=== PATIENT | female | born 1930 | race Caucasian/White ===

== ENCOUNTER 2018-07-25 22:54 | Inpatient (IN) | payer MEDICARE, BC ==
[~2018-07-25] VITALS: Ht 147.3 cm; Wt 64.5 kg
[~2018-07-25 22:54] MED LIST: ALEN70TA5 PO; FENO145T37; FURO20TA3 PO; METH-493 PO; OLME40TA13 PO; VERA120C2 PO
[2018-07-25] MEDS ORDERED: NORepinephrine 8MG/250 ML (PMX 250 ML IV STA ×2 (23:21→23:30)
[2018-07-25] MEDS ORDERED: SODIUM CHLORIDE 0.9% 1L BAG IV* STA (23:21)
[2018-07-25] MEDS ORDERED: CEFEPIME 2GM/50 ML (PMX) 50 ML IVPB STA (23:21)
[2018-07-25] MEDS ORDERED: PROPOFOL 100 ML ONE (23:22)
[2018-07-25] MEDS: PROPOFOL 100 ML IV ONE (23:30)
[2018-07-25] MEDS ORDERED: VANCOMYCIN 1 GM (PMX) 250 ML IVPB ONE (23:30)
[2018-07-25] MEDS ORDERED: SUCCINYLCHOLINE CHLORIDE 100 MG/5 ML SYG IV ONE (23:30)
[2018-07-26] VITALS (82 sets, daily range): BP systolic 76–148; BP diastolic 43–113; PULSE 76–121; RESP 15–33; Ht 147.3 cm; Wt 64.5 kg
[2018-07-26] MEDS: PROPOFOL 100 ML IV ONE (00:06)
[2018-07-26] MEDS ORDERED: IPRATROPIUM (HFA) 12.9 GM INHALER INH PRN (01:30)
[2018-07-26] MEDS ORDERED: MIDAZOLAM 1 MG/ML 2 ML INJ IV ONE (01:30)
[2018-07-26] MEDS ORDERED: ONDANSETRON 4 MG INJ IV PRN (01:30)
[2018-07-26] MEDS ORDERED: ALBUTEROL HFA 8 GM INHALER INH PRN (01:30)
[2018-07-26] MEDS ORDERED: LORAZEPAM 4 MG/ML VIAL IV PRN (01:30)
--- NOTE | 2018-07-26 01:43 | HP ---
Date/Time of Note Date/Time of Note DATE: 07/26/18 TIME: 01:43 Assessment/Plan VTE Prophylaxis Pharmacological prophylaxis: heparin Lines/Catheters IV Catheter Type (from Nrs): Saline Lock Assessment/Plan Assessment/Plan 1. Hypercapnic and hypoxic respiratory failure: Status post intubation. Likely secondary to pneumonia and possibly COPD exacerbation as well given history -Continue vent support. Pulmonary to manage -IV antibiotic -IV fluid -Respiratory culture and blood culture -If no improvement, will consider chest CT 2. Positive troponin: Likely demand ischemia from above -will trend troponin -Give a dose of therapeutic Lovenox -2D echo cardiology consult 3. History of hypertension: BP within goal 4. Hyperthyroidism: Check TSH. Continue methimazole 5. Dyslipidemia: Continue fenofibrate Result Diagram: 07/25/18 2336 07/25/18 2336 Results 24hrs Laboratory Tests Test 07/25/18 23:21 07/25/18 23:22 07/25/18 23:36 07/26/18 00:35 Blood Gas Specimen Blood arterial Source Arterial Blood 07/26/2018 12:10:38 Date Drawn AM Arterial Blood pH 7.310 L (Temp corrected) Arterial Blood 50.8 H pCO2 (Temp correct) Arterial Blood pO2 198.5 H (Temp corrected) Arterial Blood 25.0 HCO3 Arterial Blood -1.7 Base Excess Arterial Blood 99.2 Oxygen Saturation Pio Test ACCEPTAB Arterial Blood Gas Right Radial Puncture Site Arterial 0.4 Blood Carboxyhemog lobin Arterial Blood 0.3 Methemoglobin Blood Gas A-a O2 463.7 H Differential Oxyhemoglobin 98.5 Percent Blood Gas 37.0 Temperature Blood Gas 16.0 Respiration Rate Blood Gas Actual 18 Respiration Rate Blood Gas Modality VENT - AC FiO2 100.0 Blood Gas Tidal 450.0 Volume Blood Gas Low PEEP 5.0 Setting Blood Gas 33.0 Inspiratory Pressure Blood Gas Notified KM Whom Blood Gas Notified 07/26/2018 12:20:53 Time AM POC Venous Lactate 4.6 *H White Blood Count 12.6 #H Red Blood Count 3.56 L Hemoglobin 11.2 L Hematocrit 32.9 L Mean Corpuscular 92.4 Volume Mean Corpuscular 31.5 Hemoglobin Mean Corpuscular 34.0 Hemoglobin Concent Red Cell 13.1 Distribution Width Platelet Count 394 Mean Platelet 9.8 # Volume Immature 0.900 H Granulocytes % Neutrophils % Segmented 56 Neutrophils % (Manual) Band Neutrophils % 25 H (Manual) Lymphocytes % Lymphocytes % 8 L (Manual) Monocytes % Monocytes % 11 (Manual) Eosinophils % Basophils % Nucleated Red 1 H Blood Cells % Immature 0.110 H Granulocytes # Neutrophils # Neutrophils # 7.4 (Manual) Band Neutrophils # 3.1 H Lymphocytes 1.0 (Manual) Lymphocytes # Monocytes # Monocytes # 1.3 H (Manual) Eosinophils # Basophils # Nucleated Red Blood Cells # Platelet Estimate NORMAL Polychromasia 2+ Anisocytosis 1+ Macrocytosis 1+ Erythrocyte 100 H Sedimentation Rate Prothrombin Time 14.8 Prothrombin Time 1.2 Ratio INR International 1.15 Normalized Ratio Activated 33.[address] Time Sodium Level 132 L Potassium Level 3.3 L Chloride Level 89 L Carbon Dioxide 27 Level Anion Gap 16 H Blood Urea 18 Nitrogen Creatinine 0.63 Est Glomerular Filtrat Rate mL/min Glucose Level 203 Calcium Level 9.5 Total Bilirubin 0.2 Direct Bilirubin 0.00 Indirect Bilirubin 0.2 Aspartate Amino 51 H Transf (AST/SGOT) Alanine 23 Aminotransferase ( ALT/SGPT) Alkaline 52 Phosphatase Troponin I 0.669 *H C-Reactive Protein 41.0 H Total Protein 7.5 Albumin 3.7 Globulin 3.80 H Albumin/Globulin 0.97 Ratio Lipase 20 L Urine Color ANASTASIA Urine Clarity CLOUDY A Urine pH 5.0 Urine Specific 1.014 [place] Urine Ketones NEGATIVE Urine Nitrite NEGATIVE Urine Bilirubin NEGATIVE Urine Urobilinogen 2+ H Urine Leukocyte NEGATIVE Esterase Urine Microscopic 1 RBC Urine Microscopic 8 H WBC Urine Squamous FEW Epithelial Cells Urine Amorphous MODERATE Crystals Urine Bacteria MANY A Urine Hyaline FEW A Casts Urine Mucus FEW A Urine Hemoglobin 1+ H Urine Glucose 1+ H Urine Total 1+ H Protein Test 07/26/18 01:16 POC Venous Lactate 2.4 *H HPI/ROS Admit Date/Time Admit Date/Time Hx of Present Illness This is an 87-year-old female with a history of COPD, hypertension, dyslipidemia, hyperthyroidism who was brought to the ER for shortness of breath. Patient is currently intubated and as such information is gathered from chart review and from the ER physician. Reportedly, daughter stated that the patient has been coughing up for the past 3 days. Prior to coming to the ER patient started experiencing shortness of breath and was breathing fast. In the ER she was hypoxic with O2 sat as low as 85 on 15 L nonrebreather mask. PH 7.31, PCO2 51, PO2 almost 200, bicarb 25. Currently patient is intubated. Chest x-ray shows possible bilateral pneumonia. First troponin also found to be elevated at 0.67. EKG without ST elevation or depression. PMH/Family/Social Past Medical History PMH/Family/Social Past Medical History Medical History: other (see hpi) Coded Allergies: No Known Drug Allergy (Verified Allergy, Unknown, 03/06/16) Past Surgical History Past Surgical Hx: other (see hpi) Family History Significant Family History: no pertinent family hx Social History Alcohol Use: other Smoking Status: Unknown if ever smoked Drug Use: other Medications Current Medications Norepinephrine 250 ml @ 7.5 mls/hr ONCE STAT IV Last administered on 07/25/18at 23:40; Admin Dose 7.5 MLS/HR; Start 07/25/18 at 23:30; Stop 07/27/18 at 08:49 Dextrose/Sodium Chloride 1,000 ml @ 100 mls/hr Q10H IV ; Start 07/26/18 at 01:20; Status UNV Ondansetron HCl (Zofran Inj) 4 mg Q6H PRN IV NAUSEA AND/OR VOMITING; Start 07/26/18 at 01:30; Status UNV Albuterol (Ventolin Hfa) 4 puff Q2H RESP THERAPY PRN INH SHORTNESS OF BREATH; Start 07/26/18 at 01:30; Status UNV Ipratropium [place]itter (Atrovent Hfa) 4 puff Q2H RESP THERAPY PRN INH SHORTNESS OF BREATH; Start 07/26/18 at 01:30; Status UNV Acetaminophen (Tylenol Liquid) 650 mg Q6H PRN PO PAIN LEVEL 1-3 OR FEVER; Start 07/26/18 at 01:30; Status UNV Lorazepam (Ativan) 1 mg Q2H PRN IV ANXIETY; Start 07/26/18 at 01:30; Status UNV Famotidine (Pepcid Iv) 20 mg Q12 IV ; Start 07/26/18 at 09:00; Status UNV Enoxaparin Sodium (Lovenox) 40 mg DAILY SC ; Start 07/26/18 at 09:00; Status UNV Propofol 100 ml @ 1.937 mls/ hr PER PROTOCOL IV ; Start 1/7/19 at 01:30; Status UNV Midazolam HCl (Versed) Loading dose - give s... ONCE ONCE IV ; Start 07/26/18 at 01:30; Stop 07/26/18 at 01:31; Status UNV Norepinephrine 250 ml @ 1.875 mls/ hr PER PROTOCOL IV ; Start 07/26/18 at 01:30; Status UNV Cefepime HCl 50 ml @ 100 mls/hr Q12 IVPB ; Start 07/26/18 at 09:00; Status UNV Azithromycin 250 ml @ 250 mls/hr DAILY IVPB ; Start 07/26/18 at 09:00; Status UNV Coded Allergies: No Known Allergy (Verified , 12/16/12) Social History Smoking Status: Unknown if ever smoked Exam/Review of Systems Vital Signs Vitals Vital Signs Date Temp Pulse Resp B/P (MAP) Pulse Ox O2 O2 Flow FiO2 Time Delivery Rate 07/26/18 91 17 103/82 97 Mechanical 00:45 (89) Ventilator 07/26/18 70 00:24 07/25/18 97.9 15.0 23:28 Exam Constitutional: other (Intubated/sedated) Head: normocephalic, atraumatic Respiratory: other (Decreased breath sounds at the base bilaterally) Cardiovascular: regular rate and rhythm, nl pulses Gastrointestinal: soft Extremities: normal pulses PRADEEP KRAMER MD Jul 26, 2018 01:43
--- NOTE | 2018-07-26 01:49 | ERD ---
ER Documentation Chief Complaint Chief Complaint SOB; ALOC; SATTING 58% HPI This is a very pleasant 87-year-old female who comes in brought in by family for shortness of breath and altered mental status. She is found to be satting 58% in triage. She is also not answering questions. She was brought back immediately to room. The diagnosis and decision of respiratory failure and intubation were made immediately. Patient was prepped for intubation. Reviewing EMR patient has history of CHF and COPD. History is obviously limited from the patient given her current status. ROS All systems reviewed and are negative except as per history of present illness. Medications Home Meds Active Scripts Furosemide* (Furosemide*) 20 Mg Tablet, 20 MG PO DAILY for 14 Days, TAB Prov:GITA VALENCIA MD 06/22/15 Reported Medications Methimazole* (Methimazole*) 5 Mg Tablet, 5 MG PO BID, TAB 06/19/15 Verapamil Hcl* (Verapamil ER*) 120 Mg Cap24h.pel, 120 MG PO DAILY, CAP 06/19/15 Olmesartan Medoxomil (Benicar) 40 Mg Tablet, 40 MG PO DAILY, TAB 06/19/15 Alendronate Sodium* (Fosamax*) 70 Mg Tablet, 70 MG PO Q WEEKLY THURSDAY AM 12/17/12 Fenofibrate Nanocrystallized* (Fenofibrate*) 145 Mg Tablet, DAILY 12/16/12 Allergies Allergies: Coded Allergies: No Known Allergy (Verified , 12/16/12) PMhx/Soc History of Surgery: Yes (see EMR) Anesthesia Reaction: No Hx Neurological Disorder: No Hx Respiratory Disorders: No Hx Cardiac Disorders: Yes (HTN, HYPERLIPIDEMIA/ Enlarged heart- w/ home O2) Hx Psychiatric Problems: No Hx Miscellaneous Medical Probl: Yes (HTN, dyslipidemia, OP, hypothyroidism) Hx Alcohol Use: No Hx Substance Use: No Hx Tobacco Use: No Smoking Status: Unknown if ever smoked Physical Exam Vitals Vital Signs Date Temp Pulse Resp B/P (MAP) Pulse Ox O2 O2 Flow FiO2 Time Delivery Rate 07/26/18 91 17 103/82 97 Mechanical 00:45 (89) Ventilator 07/26/18 91 16 132/56 98 Mechanical 00:30 (81) Ventilator 07/26/18 90 20 100 70 00:24 07/26/18 97 16 147/63 100 Mechanical 00:00 (91) Ventilator 07/26/18 97 16 147/63 100 00:00 (91) 07/25/18 83 20 125/90 100 Mechanical 23:45 (102) Ventilator 07/25/18 97.9 102 19 127/66 85 Non 15.0 23:28 (86) Rebreather 07/25/18 Rebreather 23:28 07/25/18 97 16 100 100 23:07 07/25/18 122/57 58 22:55 (78) Physical Exam Const: No acute distress Head: Atraumatic Eyes: Normal Conjunctiva ENT: Normal External Ears, Nose and Mouth. Neck: Full range of motion. No meningismus. Resp: Clear to auscultation bilaterally Cardio: Regular rate and rhythm, no murmurs Abd: Soft, non tender, non distended. Normal bowel sounds Skin: No petechiae or rashes Back: No midline or flank tenderness Ext: No cyanosis, or edema Neur: Awake and alert Psych: Normal Mood and Affect Result Diagram: 07/25/18 2336 07/25/18 2336 Results 24 hrs Laboratory Tests Test 07/25/18 23:21 07/25/18 23:22 07/25/18 23:36 07/26/18 00:35 Blood Gas Blood arterial Specimen Source Arterial Blood 07/26/2018 12:10: Date Drawn 38 AM Arterial Blood 7.310 pH (Temp corrected) Arterial Blood 50.8 mmhg pCO2 (Temp correct) Arterial Blood 198.5 mmHG pO2 (Temp corrected) Arterial Blood 25.0 mmol/L HCO3 Arterial Blood -1.7 mmol/L Base Excess Arterial Blood 99.2 mmHG Oxygen Saturatio n Pio Test ACCEPTAB Arterial Blood Right Radial Gas Puncture Site Arterial 0.4 % Blood Carboxyhem oglobin Arterial Blood 0.3 % Methemoglobin Blood Gas A-a O2 463.7 mmHg Differential Oxyhemoglobin 98.5 % Percent Blood Gas 37.0 C Temperature Blood Gas 16.0 Respiration Rate Blood Gas Actual 18 Respiration Rate Blood Gas VENT - AC Modality FiO2 100.0 % Blood Gas Tidal 450.0 mL Volume Blood Gas Low 5.0 cmH2O PEEP Setting Blood Gas 33.0 Inspiratory Pressure Blood Gas KM Notified Whom Blood Gas 07/26/2018 12:20: Notified Time 53 AM POC Venous 4.6 mmol/L Lactate White Blood 12.6 10^3/ul Count Red Blood Count 3.56 10^6/ul Hemoglobin 11.2 g/dl Hematocrit 32.9 % Mean Corpuscular 92.4 fl Volume Mean Corpuscular 31.5 pg Hemoglobin Mean Corpuscular 34.0 g/dl Hemoglobin Georgette nt Red Cell 13.1 % Distribution Width Platelet Count 394 10^3/UL Mean Platelet 9.8 fl Volume Immature 0.900 % Granulocytes % Neutrophils % % Segmented 56 % Neutrophils % (Manual) Band Neutrophils 25 % % (Manual) Lymphocytes % % Lymphocytes % 8 % (Manual) Monocytes % % Monocytes % 11 % (Manual) Eosinophils % % Basophils % % Nucleated Red 1 % Blood Cells % Immature 0.110 10^3/ul Granulocytes # Neutrophils # 10^3/ul Neutrophils # 7.4 10^3/ul (Manual) Band Neutrophils 3.1 10^3/ul # Lymphocytes 1.0 10^3/ul (Manual) Lymphocytes # 10^3/ul Monocytes # 10^3/ul Monocytes # 1.3 10^3/ul (Manual) Eosinophils # 10^3/ul Basophils # 10^3/ul Nucleated Red 10^3/ul Blood Cells # Platelet NORMAL Estimate Polychromasia 2+ Anisocytosis 1+ Macrocytosis 1+ Erythrocyte 100 mm/Hr Sedimentation Rate Prothrombin Time 14.8 Sec Prothrombin Time 1.2 Ratio INR 1.15 International Normalized Ratio Activated 33.2 Sec Partial Thrombop last Time Sodium Level 132 mmol/L Potassium Level 3.3 mmol/L Chloride Level 89 mmol/L Carbon Dioxide 27 mmol/L Level Anion Gap 16 Blood Urea 18 mg/dl Nitrogen Creatinine 0.63 mg/dl Est Glomerular mL/min Filtrat Rate mL/min Glucose Level 203 mg/dl Calcium Level 9.5 mg/dl Total Bilirubin 0.2 mg/dl Direct Bilirubin 0.00 mg/dl Indirect 0.2 mg/dl Bilirubin Aspartate Amino 51 IU/L Transf (AST/SGOT ) Alanine 23 IU/L Aminotransferase (ALT/SGPT) Alkaline 52 IU/L Phosphatase Troponin I 0.669 ng/ml C-Reactive 41.0 mg/dl Protein Total Protein 7.5 g/dl Albumin 3.7 g/dl Globulin 3.80 g/dl Albumin/Globulin 0.97 Ratio Lipase 20 U/L Urine Color ANASTASIA Urine Clarity CLOUDY Urine pH 5.0 Urine Specific 1.014 [place] Urine Ketones NEGATIVE mg/dL Urine Nitrite NEGATIVE mg/dL Urine Bilirubin NEGATIVE mg/dL Urine 2+ mg/dL Urobilinogen Urine Leukocyte NEGATIVE Honey/ul Esterase Urine 1 /HPF Microscopic RBC Urine 8 /HPF Microscopic WBC Urine Squamous FEW /HPF Epithelial Cells Urine Amorphous MODERATE /HPF Crystals Urine Bacteria MANY /HPF Urine Hyaline FEW /HPF Casts Urine Mucus FEW /HPF Urine Hemoglobin 1+ mg/dL Urine Glucose 1+ mg/dL Urine Total 1+ mg/dl Protein Test 07/26/18 01:16 POC Venous 2.4 mmol/L Lactate Current Medications Medications Dose Sig/Jose Start Time Status Last (Trade) Ordered Route PRN Stop Time Admin Dose Reason Admin Sodium 1,940 ml BOLUS OVER 2 07/25/18 DC 07/26/18 Chloride HOURS STAT 23:21 07/25/18 00:01 (NS) IV* 23:23 250 ml @ ONCE STAT 07/25/18 DC Norepinephrin 7.5 mls/hr IV 23:21 07/25/18 e 23:30 Cefepime HCl 50 ml @ ONCE STAT 07/25/18 DC 07/26/18 100 mls/hr IVPB 23:21 07/25/18 00:01 23:50 Vancomycin 250 ml @ ONCE ONCE 07/25/18 DC 07/26/18 HCl 125 mls/hr IVPB 23:30 07/26/18 00:53 01:29 100 mg ONCE ONCE 07/25/18 DC 07/25/18 Succinylcholi IV 23:30 07/25/18 23:06 ne Chloride 23:31 (Anectine Syringe) Propofol 100 ml @ 0 TITRATE 07/25/18 DC 07/25/18 mls/hr ONCE IV 23:30 07/25/18 23:30 23:31 Propofol 100 ml @ ud STK-MED 07/25/18 DC ONCE .ROUTE 23:22 07/25/18 23:23 250 ml @ ONCE STAT 07/25/18 07/25/18 Norepinephrin 7.5 mls/hr IV 23:30 07/27/18 23:40 e 08:49 1,000 ml @ Q10H IV 07/26/18 UNV Dextrose/Sodi 100 mls/hr 01:20 um Chloride Ondansetron 4 mg Q6H PRN 07/26/18 UNV HCl (Zofran IV NAUSEA 01:30 Inj) AND/OR VOMITING Albuterol 4 puff Q2H RESP 07/26/18 UNV (Ventolin THERAPY PRN 01:30 Hfa) INH SHORTNESS OF BREATH Ipratropium 4 puff Q2H RESP 07/26/18 UNV Rebuck THERAPY PRN 01:30 (Atrovent INH Hfa) SHORTNESS OF BREATH 650 mg Q6H PRN 07/26/18 UNV Acetaminophen PO PAIN 01:30 (Tylenol LEVEL 1-3 OR Liquid) FEVER Lorazepam 1 mg Q2H PRN 07/26/18 UNV (Ativan) IV ANXIETY 01:30 Famotidine 20 mg Q12 IV 07/26/18 UNV (Pepcid Iv) 09:00 Enoxaparin 40 mg DAILY SC 07/26/18 UNV Sodium 09:00 (Lovenox) Propofol 100 ml @ PER 07/26/18 UNV 1.937 mls/ PROTOCOL IV 01:30 hr Midazolam Loading ONCE ONCE 07/26/18 UNV HCl dose - give IV 01:30 07/26/18 (Versed) s... 01:31 250 ml @ PER 07/26/18 UNV Norepinephrin 1.875 mls/ PROTOCOL IV 01:30 e hr Cefepime HCl 50 ml @ Q12 IVPB 07/26/18 UNV 100 mls/hr 09:00 Azithromycin 250 ml @ DAILY IVPB 07/26/18 UNV 250 mls/hr 09:00 Procedures/MDM EKG: Rate/Rhythm: [Normal Sinus Rhythm] QRS, ST, T-waves: [No changes consistent w/ acute ischemia] Impression: [No evidence of ischemia or arrhythmia] Chest X-ray 1V Interpreted by me: Soft Tissue: No acute abnormalities Bones: No acute abnormalities Mediastinum/Cardiac Silhouette/Lungs: ET tube in good position Sepsis initially recognized upon patient arrival Patient's infectious symptoms have not stabilized and the patient is at risk of rapid decompensation. The patient will be admitted for careful hydration, antibiotic therapy, and infectious source control. Severe Sepsis Assessment: Infectious Source: Unknown End organ damage indicated by: [Lactate > 2.0 mmol/L Hypotension( SBP < 90 or >40 mmHG drop or MAP < 65) Acute Resp Failure (sat < 92% w/o oxygen) ] Severe Sepsis Managment: Blood Cultures X 2 before broad spectrum antibiotics initiated within 3 hours of recognition. 30 ml/kg NS bolus Completed Initial Lactate: 4.2 Repeat Lactate 2.4 Critical Care: Time: 45 minutes, independent of any separately billable procedural time Treatments/Evaluations: Emergent fluid management, while maintaining close respiratory support. Immediate broad spectrum antibiotic therapy. Simultaneous assessment for possible sources in order to direct therapy. Consideration for invasive and chemical support to prevent respiratory or cardiac collapse. Septic Shock Assessment (1 hour post 30 ml/kg fluid bolus): Hypotension (SBP < 90 or 40 mmHg drop, MAP < 65): [No] Lactic acid > 4.0 [No] Perfusion Reassessment for Septic Shock: Temp 98.6, pulse 92, blood pressure 104/86, respiratory rate is 16, pulse oximetry 100% Heart Exam: [Tachycardic] Lung Exam: [No Crackles] Capillary Refill: [Delayed] Peripheral Pulses: [Radially present] Skin: [Mottled, pale] Hypotensive Treatment (not required for isolated lactic acid elevation): Comfort Care: No Central LIne: Left subclavian Vasopressor started: [norepinephrine] Accepting Care Team: Current data and ongoing care discussed. Time: 12:47 AM Primary Provider: Hospitalist Consulting: Deferred to inpatient team Outstanding Data: none Central Line Placement by me: Patient consented, sterilely draped, full prep, gown, glove, mask, time out performed. Anesthesia: 1% lidocaine locally Location: Left subclavian Device: Multiple lumen Technique: Seldinger technique. Secured with suture. Results: Venous return from all ports with easy saline flush. No complications. [XOXOXO]Guide wire retrieved and disposed of. [Chest X-ray 1V Interpreted by me: Central line in SVC, Normal soft tissue, No evidence of pneumothorax.] Endotracheal Intubation by me: Pre assessment performed. See preceding note for details. Pre-oxygenation performed with 100% oxygen RSI: Performed w/o complication or hypoxic events. Medications as ordered. Blade: [Mac 4] ET Tube: 7.0 cm Depth: 22 cm at the lip Intubation confirmed by colorimetric CO2, equal breath sounds, quiet over the stomach. Chest X-ray 1V Interpreted by me: 1 cm above the mekhi ET tube. Normal soft tissue, No pneumothorax. Departure Diagnosis: Primary Impression: Respiratory failure Chronicity: acute Respiratory failure complication: unspecified whether with hypoxia or hypercapnia Qualified Codes: J96.00 - Acute respiratory failure, unspecified whether with hypoxia or hypercapnia Additional Impression: Sepsis Sepsis type: sepsis due to unspecified organism Qualified Codes: A41.9 - Sepsis, unspecified organism Condition: Critical PRADEEP NARVAEZ Jul 26, 2018 01:49
[2018-07-26] MEDS: PROPOFOL 100 ML IV SCH ×2 (04:43→10:34)
[2018-07-26] MEDS: DEXTROSE 5%-0.45% NACL 1,000 ML IV SCH ×2 (05:41→18:25)
[2018-07-26] MEDS: NORepinephrine 8MG/250 ML (PMX 250 ML IV SCH ×2 (07:09→19:41)
[2018-07-26] MEDS: METHIMAZOLE 5 MG TAB PO SCH ×2 (08:26→21:16)
[2018-07-26] MEDS: CEFEPIME 1GM/50 ML (PMX) 50 ML IVPB SCH ×2 (08:26→21:16)
[2018-07-26] MEDS: ENOXAPARIN 40 MG/0.4 ML SYG SC SCH (08:27)
[2018-07-26] MEDS: FENOFIBRATE 145 MG TAB PO SCH (08:28)
[2018-07-26] MEDS ORDERED: FAMOTIDINE 20 MG INJ IV SCH (09:00)
[2018-07-26] MEDS ORDERED: POTASSIUM CHLORIDE 20 MEQ POWDER FOR ORAL SOLN NGT SCH (10:00)
[2018-07-26] MEDS: AZITHROMYCIN 500MG/NS (PMX) 250 ML IVPB SCH (10:03)
--- NOTE | 2018-07-26 11:24 | CONS ---
DATE OF ADMISSION: 07/26/2018 DATE OF CONSULTATION: 07/26/2018 TYPE OF CONSULTATION: Pulmonary. REASON FOR CONSULTATION: Ventilator management. Thank you, Dr. Vargas, for this consultation. HISTORY OF PRESENT ILLNESS: This is an 87-year-old lady brought in by family yesterday for altered m ental status, respiratory distress, found to be significantly hypoxemic requiring emergent intubation and mechanical ventilation. Few further details are available. The patient, per chart, has a histo ry of CHF and COPD, possible restrictive lung disease given radiographic findings. PAST MEDICAL HISTORY: Hypertension, hyperlipidemia, CHF, hypothyroidism. MEDICATIONS: Per chart. ALLERGIES: NONE. SOCIAL HISTORY: Nonsmoker, no alcohol, no history of drug use. FAMILY HISTORY: Noncontributory. SYSTEMS REVIEW: A 12-point review of systems was negative other than that mentioned above. PHYSICAL EXAMINATION: GENERAL: Chronically ill appearing lady, orally intubated on mechanical ventilation, appears comfort able at rest, no acute distress. VITAL SIGNS: Currently afebrile, pulse is 110, blood pressure 105/55, O2 saturation 99%, FIO2 of 60% , orally intubated. NECK: Supple. No JVD or lymphadenopathy. CARDIAC: S1, S2, no added sounds or murmurs. CHEST: Diminished air entry bilaterally. ABDOMEN: Soft, nontender. No guarding or rebound. EXTREMITIES: No cyanosis, clubbing, edema. NEUROLOGIC: Unable to assess. LABORATORY DATA: White count 10.2, hemoglobin 10.6, platelets of 364. BUN 20, creatinine 0.59. Tro ponin elevated at 0.57. Initial lactic acid 2.4, now 1.8. DIAGNOSTIC DATA: Chest x-ray demonstrates bilateral infiltrates, possible underlying pulmonary edema . EKG: No acute ischemic changes. IMPRESSION AND PLAN: 1. Acute hypoxemic respiratory failure, likely secondary to community-acquired pneumonia. 2. Probable underlying restrictive lung disease. 3. Elevated troponin, likely type 2 non-ST elevation OR. The patient to continue with: 1. Fluid resuscitation. 2. Broad-spectrum antibiotics. 3. Mechanical ventilation. 4. Sedation and pressors as needed. 5. Start tube feeding. 6. Deep vein thrombosis and gastrointestinal prophylaxis. Dictated By: CYNDEE DUPREE/YUSUF Conf#: [id number] DID#: [id number] CC: PRADEEP VARGAS MD;*EndCC*
[2018-07-26] MEDS ORDERED: ASPIRIN 325 MG TAB PO ONE (12:00)
[2018-07-26] MEDS ORDERED: POTASSIUM CHLORIDE 50 ML IVPB SCH (12:00)
[2018-07-26] MEDS ORDERED: LORAZEPAM 1 MG TAB GTB PRN (12:04)
[2018-07-26] MEDS: ACETAMINOPHEN 650MG/20.3ML CUP PO PRN (12:26)
[2018-07-26] MEDS ORDERED: MAGNESIUM SULFATE 2 GM/50 ML 50 ML IVPB ONE (13:00)
--- NOTE | 2018-07-26 13:42 | CONS ---
DATE OF ADMISSION: 07/26/2018 DATE OF CONSULTATION: 07/26/2018 TYPE OF CONSULTATION: Cardiology. REASON FOR CONSULTATION: Tachyarrhythmia. REQUESTING PHYSICIAN: Yessy Santo MD, from the hospitalist service. HISTORY OF PRESENT ILLNESS: Ms. Brown is an 87-year-old female with a history of hyperthyroid, hypertension, dyslipidemia, cardiomegaly, possible home O2 and osteoporosis, who presented from home with shortness of breath, altered mental state. Upon arrival, temperature was 97.9, blood pressure 122/57, pulse 97, respiratory rate 16, satting 58%. The patient's labs were notable for a white blood cell count of 12.6, hemoglobin 11.2, platelet count 394, ESR of 100, sodium 132, potassium 3.3, creatinine 0.6, BUN 18, lactate of 4.6. Troponin is positive at 0.669. INR of 1.1. UA is borderline positive. The patient underwent a chest x-ray revealing possible bilateral pneumonia. The patient's electrocardiogram revealed initial rhythm concerning for possible accelerated junctional rhythm, but probably more consistent with sinus tachycardia, rate of 106 with normal axis and nonspecific ST and T-wave abnormalities. The patient required intubation and initiation of pressor support and has been admitted to the ICU and since admit to the ICU, the patient has remained mildly tachycardic in the low 100s with possible episodes of accelerated junctional rhythm versus ongoing sinus tachycardia and recurrent bouts of mild wide complex beats concerning for possible PVCs and/or fusion beats. The patient at this time remains intubated, not able to respond to questions pertaining to chest pain, shortness of breath. PAST MEDICAL HISTORY: As above in HPI. MEDICATIONS CURRENTLY IN HOSPITAL: 1. Pepcid 20 mg IV q.12. 2. Lovenox 40 mg subQ daily. 3. Cefepime. 4. Azithromycin. 5. TriCor. 6. Tapazole 5 mg b.i.d. 7. Zofran. 8. Ventolin. 9. Atrovent. 10. Tylenol. 11. Propofol. 12. Levophed pressor support. ALLERGIES: NO KNOWN DRUG ALLERGIES. SOCIAL HISTORY: No current tobacco, EtOH or illicit drug use. FAMILY HISTORY: No history of sudden cardiac or early CAD. REVIEW OF SYSTEMS: As above in HPI. CONSTITUTIONAL: No fevers, chills. PULMONARY: Respiratory failure, status post intubation. GASTROINTESTINAL: Dysphagia. GENITOURINARY: No hematuria. MUSCULOSKELETAL: Degenerative joint disease. PSYCHIATRIC: No documented psych history. NEUROLOGIC: No documented history of CVA. ENDOCRINE: Hyperthyroidism. PHYSICAL EXAMINATION: VITAL SIGNS: Temperature of 97.9, blood pressure most recently 78/53, pulse 114, respiratory rate 33. GENERAL: The patient is intubated and sedated. NECK: JVP is approximately 9 to 10 cm water. CHEST: Upper airway transmitted rhonchorous sounds. HEART: Tachycardic, regular rhythm, normal S1, S2, I/ systolic murmur, nondisplaced PMI. ABDOMEN: Positive bowel sounds, soft. EXTREMITIES: Trace edema, 1+ pulses bilateral posterior tibial. LABORATORIES: As above in HPI. Most recently from today, sodium 136, potassium 3.1, creatinine 0.59, BUN of 20. Troponin is minimally positive at 0.578. TSH of 0.666. White blood cell count 10.2, hemoglobin 10.6, platelet count of 364. IMAGING STUDIES: Chest x-ray from 07/26/2018 revealing worsening bilateral perihilar and lower lobe infiltrate, new patchy right upper lobe infiltrates. IMPRESSION: 1. Tachyarrhythmia concerning for possible accelerated junctional rhythm, likely consistent with ongoing sinus tachycardia with intermittently aberrantly conducted beats possibly rate related to bundle. 2. Bundle branch block, intermittent, in correction of rate related. I doubt ischemic etiology of the bundle. 3. Positive troponin in the setting of sepsis and hypotension. 4. Hypotension, on pressor support. 5. Anemia. 6. Respiratory failure, status post intubation. 7. Abnormal echocardiogram, assess for acute coronary syndrome with altered mental state. RECOMMENDATIONS: 1. At this time, we would maintain the patient in ICU on close monitoring. 2. Continue the patient's pressor support, Levophed at this time following rhythm and rate control closely. 3. The patient is status post TSH within normal limits. Check free T4 to further assess the patient's current thyroid state on Tapazole. 4. Continue the patient's Tapazole at this time. 5. Continue the patient's broad spectrum antibiotics and follow up all culture data. 6. We will place the patient on aspirin at this time in the setting of minimally positive troponins and continue the patient's low dose Lovenox. 7. We would keep the patient's potassium and magnesium and we will replete greater than 4 and 2 respectively and therefore we will give patient potassium at this time and check the patient's magnesium. 8. Wean the patient's vent as tolerated. Thank you for allowing me to take part in the care of this patient. I will continue to follow her very closely with you with further recommendations will be made as the patient progresses through her inpatient hospital clinical course. Dictated By: YESSY RICKS/YUSUF Conf#: [id number] DID#: [id number] CC: YESSY SANTO MD; CYNDEE SAAVEDRA MD; PRADEEP KRAMER MD;*EndCC* MTDD
--- NOTE | 2018-07-26 15:56 | PN ---
Date/Time of Note Date/Time of Note DATE: 07/26/18 TIME: 15:50 Assessment/Plan VTE Prophylaxis Risk score (from Ns)>0 risk: 5 SCD applied (from Ns): Yes Pharmacological prophylaxis: LMWH Lines/Catheters IV [facility]from [facility] Saline Lock Urinary Cath still in place: Yes Reason Cath still needed: other (indicate) (intubated) Assessment/Plan Assessment/Plan # Hypercapnic and hypoxic respiratory failure: - Status post intubation. Likely secondary to pneumonia and possibly COPD exacerbation as well given history - Continue vent support. Pulmonary following - IV antibiotics - Respiratory culture and blood culture - If no improvement, will consider chest CT # Positive troponin: Likely demand ischemia from above - trops slowly trending down - Dr Perrin following - Only prophylactic dose lovenox for now. - 2D echo # History of hypertension: Currently requiring pressors # Hyperthyroidism: TSH currently at safe level. Continue methimazole # Dyslipidemia: Continue fenofibrate Code status: Do not resuscitate, do not re-intubate. Result Diagram: 07/26/18 0607/26/18 06 Subjective 24 Hr Interval Summary Free Text/Dictation No acute overnight events. Patient's daughter Jes is a [employer]. Per family discussion, the patient has been made DNR. In the event of extubation she should not be re-intubated. Slowly weaning down on pressors and FiO2 today. Exam/Review of Systems Vital Signs Vitals Vital Signs Date Temp Pulse Resp B/P (MAP) Pulse Ox O2 O2 Flow FiO2 Time Delivery Rate 07/26/18 88 25 107/51 98 13:45 (69) 07/26/18 [place] 13:30 l Ventilato r 07/26/18 100.1 13:15 07/26/18 60 08:00 07/26/18 16.0 04:55 Intake and Output 07/25/18 07/25/18 07/26/18 1414:59 22:59 06:59 IntakeIntake Total 2172 ml OutputOutput Total 20 ml BalanceBalance 2152 ml Exam Gen: Elderly woman intubated, sedated. HEENT: Moist mucous membranes, ET tube in place. Neck: No lymphadenopathy Chest: L chest subclavian line in place Card: Tachy, regular rhythm, no murmurs Pulm: Mechanical breath sounds with crackles throughout. Abd: Soft, nondistended. Ext: No cyanosis/clubbing/edema. Medications Medications Current Medications Norepinephrine 250 ml @ 7.5 mls/hr ONCE STAT IV Last administered on 07/25/18 23:40; Admin Dose 7.5 MLS/HR; Start 07/25/18 at 23:30; Stop 07/27/18 at 08:49 Dextrose/Sodium Chloride 1,000 ml @ 100 mls/hr Q10H IV Last administered on 07/26/18 05:41; Admin Dose 100 MLS/HR; Start 07/26/18 at 01:20 Ondansetron HCl (Zofran Inj) 4 mg Q6H PRN IV NAUSEA AND/OR VOMITING; Start 07/26/18 at 01:30 Albuterol (Ventolin Hfa) 4 puff Q2H RESP THERAPY PRN INH SHORTNESS OF BREATH; Start 07/26/18 at 01:30 Ipratropium [place] (Atrovent Hfa) 4 puff Q2H RESP THERAPY PRN INH SHORTNESS OF BREATH; Start 07/26/18 at 01:30 Acetaminophen (Tylenol Liquid) 650 mg Q6H PRN PO PAIN LEVEL 1-3 OR FEVER Last administered on 07/26/18 12:26; Admin Dose 650 MG; Start 07/26/18 at 01:30 Enoxaparin Sodium (Lovenox) 40 mg DAILY SC Last administered on 07/26/18 08:27; Admin Dose 40 MG; Start 07/26/18 at 09:00 Propofol 100 ml @ 1.937 mls/ hr PER PROTOCOL IV Last administered on 07/26/18 10:34; Admin Dose 5.81 MLS/HR; Start 07/26/18 at 01:30 Norepinephrine 250 ml @ 1.875 mls/ hr PER PROTOCOL IV Last administered on 07/26/18 07:09; Admin Dose 31.875 MLS/HR; Start 07/26/18 at 01:30 Cefepime HCl 50 ml @ 100 mls/hr Q12 IVPB Last administered on 07/26/18 08:26; Admin Dose 100 MLS/HR; Start 07/26/18 at 09:00 Azithromycin 250 ml @ 250 mls/hr DAILY IVPB Last administered on 07/26/18 10:03; Admin Dose 250 MLS/HR; Start 07/26/18 at 09:00 Fenofibrate (Tricor) 145 mg DAILY PO Last administered on 07/26/18at 08:28; Admin Dose 145 MG; Start 07/26/18 at 09:00 Methimazole (Tapazole) 5 mg BID PO Last administered on 07/26/18at 08:26; Admin Dose 5 MG; Start 07/26/18 at 09:00 Famotidine (Pepcid) 20 mg DAILY GTB ; Start 07/27/18 at 09:00 Lorazepam (Ativan) 1 mg Q2H PRN GTB ANXIETY; Start 07/26/18 at 12:04 YESSY LANDEROS MD Jul 26, 2018 15:56
--- NOTE | 2018-07-26 16:58 | RADRPT ---
Echocardiogram Report Patient Name: KELSIE GALDAMEZ Gender: Female Date: 1930 Study Date: 26-Jul-2018 Inspector Handbag Frames: [facility] Location: 114 Ref. Physician: PRADEEP KRAMER Quality: Technically Difficult Study Procedures: Transthoracic echocardiogram with complete 2D, M-Mode, and doppler examination. Indications: Positive Troponins. 2D/M Mode Doppler Measurement Value Normal Ranges Measurement Value Normal Ranges LVIDd 2D 4.4 3.5 - 5.6 cm AV Mean Jairo 1.4 m/sec LVIDs 2D 2.3 2.1 - 4.1 cm AV Mean PG 10.0 mmHg LVPWd 2D 1.0 0.6 - 1.1 cm AV Peak Jairo 2.0 m/sec IVSd 2D 1.0 0.6 - 1.1 cm AV Peak PG 17.0 mmHg AoR Diam 2D 2.6 2.0 - 3.7 cm AV VTI 32.6 cm LA/Ao 2D 2 0 - 1 LVOT Peak Jairo 1.5 m/sec LA Dimen 2D 3.9 2.3 - 4.0 cm LVOT Peak PG 9.0 mmHg MV E Peak Jairo 0.6 m/sec MV A Peak Jairo 0.9 m/sec MV E/A 0.7 MV Decel Time 264 msec Lat E` Jairo 0.1 m/sec Lateral E/E` 9.1 MV E/A 0.7 TR Peak Jairo 4.4 m/sec TR Peak PG 79.0 mmHg RVSP 94.0 mmHg RA Pressure 15.0 Findings Left Ventricle: Normal left ventricular systolic function. Normal left ventricular cavity size. Mild concentric left ventricular hypertrophy. Ejection fraction is visually estimated at 65 %. Tissue Doppler/Mitral Doppler indices are consistent with impaired relaxation (Stage I diastolic dysfunction). Right Ventricle: Normal right ventricular size. Normal right ventricular systolic function. Left Atrium: The left atrium is normal in size. Right Atrium: The right atrium is normal in size. Mitral Valve: Normal appearance of the mitral valve. Mild mitral annular calcification. Trace mitral regurgitation. Aortic Valve: Aortic valve Max velocity 2.10 m/sec. Max PG 16.80 mmHg. Mean PG 10.00 mmHg. Aortic sclerosis without significant stenosis. No aortic regurgitation. Tricuspid Valve: Normal appearance of the tricuspid valve. Estimated peak PA systolic pressure 94 mmHg. There is mild tricuspid regurgitation. Pulmonic Valve: Normal pulmonic valve appearance. Pericardium: Normal pericardium with no significant pericardial effusion. Aorta: Normal aortic root. IVC: Dilated IVC without respiratory collapse, however, patient on ventilator. Conclusions Normal left ventricular systolic function. Normal left ventricular cavity size. Mild concentric left ventricular hypertrophy. Ejection fraction is visually estimated at 65 %. Tissue Doppler/Mitral Doppler indices are consistent with impaired relaxation (Stage I diastolic dysfunction). Normal appearance of the mitral valve. Mild mitral annular calcification. Trace mitral regurgitation. Aortic valve Max velocity 2.10 m/sec. Max PG 16.80 mmHg. Mean PG 10.00 mmHg. Aortic sclerosis without significant stenosis. No aortic regurgitation. Normal appearance of the tricuspid valve. Estimated peak PA systolic pressure 94 mmHg. There is mild tricuspid regurgitation. Electronically Signed By: Stef Perrin 26-Jul-2018 16:57:45 -0800 Patient Name: KELSIE GALDAMEZ Study Date: 26-Jul-2018 [id number]
[2018-07-27] VITALS (107 sets, daily range): BP systolic 65–131; BP diastolic 39–106; PULSE 84–105; RESP 13–41
[2018-07-27] MEDS: PROPOFOL 100 ML IV SCH ×3 (02:05→17:20)
[2018-07-27] MEDS: DEXTROSE 5%-0.45% NACL 1,000 ML IV SCH ×3 (02:08→16:23)
--- NOTE | 2018-07-27 06:53 | CONS ---
Date/Time of Note Date/Time of Note DATE: 07/27/18 TIME: 06:52 Assessment/Plan Assessment/Plan Assessment/Plan Bilateral pneumonia Intubated on broad-spectrum IV antibiotic coverage patient with history of COPD History of comorbid medical problems including hypertension hypothyroidism. I have asked to be called when her family members arrived today patient is a DO NOT RESUSCITATE but prognosis extremely poor white blood cell count of 15,000 today with worsening of her chest x-ray. Will discuss with Result Diagram: 07/27/1825 07/27/18 0525 Results 24hrs Laboratory Tests Test 07/26/18 11:49 07/27/18 05:25 Magnesium Level 1.8 2.5 Creatine Kinase 208 H Creatine Kinase Index 1.1 Creatinine Kinase MB (Mass) 2.36 Troponin I 0.572 *H White Blood Count 15.2 #H Red Blood Count 2.99 L Hemoglobin 9.4 L Hematocrit 27.7 L Mean Corpuscular Volume 92.6 Mean Corpuscular Hemoglobin 31.4 Mean Corpuscular Hemoglobin Concent 33.9 Red Cell Distribution Width 13.5 Platelet Count 332 Mean Platelet Volume 10.0 Immature Granulocytes % 2.500 H Neutrophils % Lymphocytes % Monocytes % Eosinophils % Basophils % Nucleated Red Blood Cells % 0.0 Immature Granulocytes # 0.380 H Neutrophils # Lymphocytes # Monocytes # Eosinophils # Basophils # Nucleated Red Blood Cells # Sodium Level 135 Potassium Level 3.6 Chloride Level 100 Carbon Dioxide Level 28 Anion Gap 7 Blood Urea Nitrogen 24 H Creatinine 0.52 Est Glomerular Filtrat Rate mL/min Glucose Level 127 Calcium Level 8.8 Phosphorus Level 0.9 L Triglycerides Level 106 Cholesterol Level 71 L LDL Cholesterol, Calculated 25 HDL Cholesterol 25 L Cholesterol/HDL Ratio 2.8 Consultation Date/Type/Reason Admit Date/Time Hx of Present Illness 87-year-old female who is in the intensive care unit [facility] who presented with respiratory failure with a history of COPD. There are no family members at bedside my understanding is that they left at 3 AM this morning. Patient is intubated on 6 mics of levo fed and presented to the hospital here in respiratory distress with 3-day history of increasing respiratory symptoms. Other comorbid medical problems include history of hypothyroidism hypertension. Patient's initial chest x-ray showed bilateral pneumonia first troponin 0 0.67. Past Medical History Medications Current Medications Norepinephrine 250 ml @ 7.5 mls/hr ONCE STAT IV Last administered on 07/25/18 23:40; Admin Dose 7.5 MLS/HR; Start 07/25/18 at 23:30; Stop 07/27/18 at 08:49 Dextrose/Sodium Chloride 1,000 ml @ 100 mls/hr Q10H IV Last administered on 07/27/18 02:08; Admin Dose 100 MLS/HR; Start 07/26/18 at 01:20 Ondansetron HCl (Zofran Inj) 4 mg Q6H PRN IV NAUSEA AND/OR VOMITING; Start 07/26/18 at 01:30 Albuterol (Ventolin Hfa) 4 puff Q2H RESP THERAPY PRN INH SHORTNESS OF BREATH; Start 07/26/18 at 01:30 Ipratropium [place] (Atrovent Hfa) 4 puff Q2H RESP THERAPY PRN INH SHORTNESS OF BREATH; Start 07/26/18 at 01:30 Acetaminophen (Tylenol Liquid) 650 mg Q6H PRN PO PAIN LEVEL 1-3 OR FEVER Last administered on 07/26/18 12:26; Admin Dose 650 MG; Start 07/26/18 at 01:30 Enoxaparin Sodium (Lovenox) 40 mg DAILY SC Last administered on 07/26/18 08:27; Admin Dose 40 MG; Start 07/26/18 at 09:00 Propofol 100 ml @ 1.937 mls/ hr PER PROTOCOL IV Last administered on 07/27/18 02:05; Admin Dose 7.746 MLS/HR; Start 07/26/18 at 01:30 Norepinephrine 250 ml @ 1.875 mls/ hr PER PROTOCOL IV Last administered on 07/26/18 19:41; Admin Dose 11.25 MLS/HR; Start 07/26/18 at 01:30 Cefepime HCl 50 ml @ 100 mls/hr Q12 IVPB Last administered on 07/26/18 21:16; Admin Dose 100 MLS/HR; Start 07/26/18 at 09:00 Azithromycin 250 ml @ 250 mls/hr DAILY IVPB Last administered on 07/26/18 10:03; Admin Dose 250 MLS/HR; Start 07/26/18 at 09:00 Fenofibrate (Tricor) 145 mg DAILY PO Last administered on 1/7/19at 08:28; Admin Dose 145 MG; Start 07/26/18 at 09:00 Methimazole (Tapazole) 5 mg BID PO Last administered on 07/26/18at 21:16; Admin Dose 5 MG; Start 07/26/18 at 09:00 Famotidine (Pepcid) 20 mg DAILY GTB ; Start 07/27/18 at 09:00 Lorazepam (Ativan) 1 mg Q2H PRN GTB ANXIETY; Start 07/26/18 at 12:04 Allergies: Coded Allergies: No Known Allergy (Verified , 12/16/12) Social History Smoking Status: Never smoker Exam/Review of Systems Vital Signs Vitals Vital Signs Date Temp Pulse Resp B/P (MAP) Pulse Ox O2 O2 Flow FiO2 Time Delivery Rate 07/27/18 90 16 100 40 05:46 07/27/18 112/57 Mechanical 04:00 (75) Ventilator 07/26/18 98.2 21:00 07/26/18 16.0 04:55 Intake and Output 07/26/18 07/26/18 07/27/18 1515:00 23:00 07:00 IntakeIntake Total 1562.723 ml 1425.855 ml 768.24 ml OutputOutput Total 227 ml 430 ml 130 ml BalanceBalance 1335.723 ml 995.855 ml 638.24 ml Exam Constitutional: other (Debated) ENMT: nl external ears & nose, nl lips & teeth, nl nasal mucosa & septum; No mucosa pink and moist, No intubated, No tympanic membranes, No other Respiratory: congested cough, crackles/rales, diminished breath sounds, labored breathing Cardiovascular: regular rate and rhythm, nl pulses Gastrointestinal: soft, nl liver, spleen, non-tender, other (Socially normal) Genitourinary - Female: other Neurological: other (Intubated sedated) Medications Medications Current Medications Norepinephrine 250 ml @ 7.5 mls/hr ONCE STAT IV Last administered on 07/25/18at 23:40; Admin Dose 7.5 MLS/HR; Start 07/25/18 at 23:30; Stop 07/27/18 at 08:49 Dextrose/Sodium Chloride 1,000 ml @ 100 mls/hr Q10H IV Last administered on 07/27/18at 02:08; Admin Dose 100 MLS/HR; Start 07/26/18 at 01:20 Ondansetron HCl (Zofran Inj) 4 mg Q6H PRN IV NAUSEA AND/OR VOMITING; Start 07/26/18 at 01:30 Albuterol (Ventolin Hfa) 4 puff Q2H RESP THERAPY PRN INH SHORTNESS OF BREATH; Start 07/26/18 at 01:30 Ipratropium [place] (Atrovent Hfa) 4 puff Q2H RESP THERAPY PRN INH SHORTNESS OF BREATH; Start 07/26/18 at 01:30 Acetaminophen (Tylenol Liquid) 650 mg Q6H PRN PO PAIN LEVEL 1-3 OR FEVER Last administered on 07/26/18 12:26; Admin Dose 650 MG; Start 07/26/18 at 01:30 Enoxaparin Sodium (Lovenox) 40 mg DAILY SC Last administered on 07/26/18 08:27; Admin Dose 40 MG; Start 07/26/18 at 09:00 Propofol 100 ml @ 1.937 mls/ hr PER PROTOCOL IV Last administered on 07/27/18 02:05; Admin Dose 7.746 MLS/HR; Start 07/26/18 at 01:30 Norepinephrine 250 ml @ 1.875 mls/ hr PER PROTOCOL IV Last administered on 07/26/18 19:41; Admin Dose 11.25 MLS/HR; Start 07/26/18 at 01:30 Cefepime HCl 50 ml @ 100 mls/hr Q12 IVPB Last administered on 07/26/18 21:16; Admin Dose 100 MLS/HR; Start 07/26/18 at 09:00 Azithromycin 250 ml @ 250 mls/hr DAILY IVPB Last administered on 07/26/18 10:03; Admin Dose 250 MLS/HR; Start 07/26/18 at 09:00 Fenofibrate (Tricor) 145 mg DAILY PO Last administered on 07/26/18 08:28; Admin Dose 145 MG; Start 07/26/18 at 09:00 Methimazole (Tapazole) 5 mg BID PO Last administered on 07/26/18 21:16; Admin Dose 5 MG; Start 07/26/18 at 09:00 Famotidine (Pepcid) 20 mg DAILY GTB ; Start 07/27/18 at 09:00 Lorazepam (Ativan) 1 mg Q2H PRN GTB ANXIETY; Start 07/26/18 at 12:04 LAWRENCE BARLOW Jul 27, 2018 06:53
[2018-07-27] MEDS: CEFEPIME 1GM/50 ML (PMX) 50 ML IVPB SCH ×2 (08:30→21:07)
[2018-07-27] MEDS: FAMOTIDINE 20 MG TAB GTB SCH (08:31)
[2018-07-27] MEDS: FENOFIBRATE 145 MG TAB PO SCH (08:31)
[2018-07-27] MEDS: METHIMAZOLE 5 MG TAB PO SCH ×2 (08:31→21:09)
[2018-07-27] MEDS: ENOXAPARIN 40 MG/0.4 ML SYG SC SCH (08:33)
--- NOTE | 2018-07-27 08:44 | CONS ---
Date/Time of Note Date/Time of Note DATE: 07/27/18 TIME: 08:42 Assessment/Plan Assessment/Plan Assessment/Plan 1. Tachyarrhythmia concerning for possible accelerated junctional rhythm, likely consistent with ongoing sinus tachycardia with intermittently aberrantly conducted beats possibly rate related to bundle - still tachy - doubt SVT. Con't resp Rx. 2. Bundle branch block, intermittent, in correction of rate related. I doubt ischemic etiology of the bundle. ECHO to follow EF. 3. Positive troponin in the setting of sepsis and hypotension - will monitor now - no indication for acute intervention. 4. Hypotension, on pressor support- con't RX 5. Anemia. 6. Respiratory failure, status post intubation- per nurse, re-intubation planned - defer to pulmonary 7. Abnormal echocardiogram, assess for acute coronary syndrome with altered mental state. Result Diagram: 07/27/18 0525 07/27/18 0525 Results 24hrs Laboratory Tests Test 07/26/18 11:49 07/27/18 05:25 07/27/18 07:00 Magnesium Level 1.8 2.5 Creatine Kinase 208 H Creatine Kinase Index 1.1 Creatinine Kinase MB (Mass) 2.36 Troponin I 0.572 *H White Blood Count 15.2 #H Red Blood Count 2.99 L Hemoglobin 9.4 L Hematocrit 27.7 L Mean Corpuscular Volume 92.6 Mean Corpuscular Hemoglobin 31.4 Mean Corpuscular 33.9 Hemoglobin Concent Red Cell Distribution Width 13.5 Platelet Count 332 Mean Platelet Volume 10.0 Immature Granulocytes % 2.500 H Neutrophils % Segmented Neutrophils 64 % (Manual) Band Neutrophils % (Manual) 30 H Lymphocytes % Lymphocytes % (Manual) 4 L Monocytes % Monocytes % (Manual) 2 Eosinophils % Basophils % Nucleated Red Blood Cells % 0.0 Immature Granulocytes # 0.380 H Neutrophils # Neutrophils # (Manual) 10.4 H Band Neutrophils # 4.5 H Lymphocytes (Manual) 0.6 L Lymphocytes # Monocytes # Monocytes # (Manual) 0.3 Eosinophils # Basophils # Nucleated Red Blood Cells # Toxic Granulation 1+ Platelet Estimate NORMAL Polychromasia 1+ Poikilocytosis 1+ Anisocytosis 1+ Macrocytosis 1+ Sodium Level 135 Potassium Level 3.6 Chloride Level 100 Carbon Dioxide Level 28 Anion Gap 7 Blood Urea Nitrogen 24 H Creatinine 0.52 Est Glomerular Filtrat Rate mL/min Glucose Level 127 Calcium Level 8.8 Phosphorus Level 0.9 L Triglycerides Level 106 Cholesterol Level 71 L LDL Cholesterol, Calculated 25 HDL Cholesterol 25 L Cholesterol/HDL Ratio 2.8 Blood Gas Specimen Source Blood arterial Arterial Blood Date Drawn 07/27/2018 7:23:13 AM Arterial Blood pH 7.329 L (Temp corrected) Arterial Blood pCO2 49.8 H (Temp correct) Arterial Blood pO2 123.8 H (Temp corrected) Arterial Blood HCO3 25.6 Arterial Blood Base Excess -0.7 Arterial Blood 98.3 Oxygen Saturation Pio Test ACCEPTAB Arterial Blood Gas Left Radial Puncture Site Arterial 0.3 Blood Carboxyhemoglobin Arterial Blood Methemoglobin 0.3 Blood Gas A-a O2 Differential 539.4 H Oxyhemoglobin Percent 97.7 Blood Gas Temperature 37.0 Blood Gas Respiration Rate 16.0 Blood Gas Actual 32 Respiration Rate Blood Gas Modality VENT - AC FiO2 100.0 Blood Gas Tidal Volume 450.0 Blood Gas Low PEEP Setting 5.0 Blood Gas Notified Whom TM Blood Gas Notified Time 07/27/2018 7:36:49 AM Consultation Date/Type/Reason Admit Date/Time Jul 26, 2018 at 01:38 Initial Consult Date 24 HR Interval Summary Free Text/Dictation still tachy - doubt SVT. Con't resp Rx. Per nurse: sedated, + SOB, no obvious CP/ NO N/V/D Exam/Review of Systems Vital Signs Vitals Vital Signs Date Temp Pulse Resp B/P (MAP) Pulse Ox O2 O2 Flow FiO2 Time Delivery Rate 07/27/18 90 28 123/54 100 08:15 (77) 07/27/18 98.8 Mechanical 08:00 Ventilator 07/27/18 40 05:46 07/26/18 16.0 04:55 Intake and Output 07/26/18 07/26/18 07/27/18 1414:59 22:59 06:59 IntakeIntake Total 1650.301 ml 1317.545 ml 1085.30 ml OutputOutput Total 235 ml 417 ml 300 ml BalanceBalance 1415.301 ml 900.545 ml 785.30 ml Exam General: WN/WD/NAD, AOx 0 HEENT: Unicetric/atraumatic/EOMI (does not follow commands) NECK: JVD elevated, no thyromegaly - intubated , NGT in Lymph: no lymphadenopathy HEART: regular with no S3, II/ systolic murmur at apex LUNGS: Coarse sounds ABD: soft, NT, ND, +BS : Intact Neuro: non focal SKIN: chronic changes EXT: trace edema Medications Medications Current Medications Norepinephrine 250 ml @ 7.5 mls/hr ONCE STAT IV Last administered on 07/25/18 23:40; Admin Dose 7.5 MLS/HR; Start 07/25/18 at 23:30; Stop 07/27/18 at 08:49 Dextrose/Sodium Chloride 1,000 ml @ 100 mls/hr Q10H IV Last administered on 07/27/18 02:08; Admin Dose 100 MLS/HR; Start 07/26/18 at 01:20 Ondansetron HCl (Zofran Inj) 4 mg Q6H PRN IV NAUSEA AND/OR VOMITING; Start 07/26/18 at 01:30 Albuterol (Ventolin Hfa) 4 puff Q2H RESP THERAPY PRN INH SHORTNESS OF BREATH; Start 07/26/18 at 01:30 Ipratropium [place] (Atrovent Hfa) 4 puff Q2H RESP THERAPY PRN INH SHORTNESS OF BREATH; Start 07/26/18 at 01:30 Acetaminophen (Tylenol Liquid) 650 mg Q6H PRN PO PAIN LEVEL 1-3 OR FEVER Last administered on 07/26/18 12:26; Admin Dose 650 MG; Start 07/26/18 at 01:30 Enoxaparin Sodium (Lovenox) 40 mg DAILY SC Last administered on 07/27/18 08:33; Admin Dose 40 MG; Start 07/26/18 at 09:00 Propofol 100 ml @ 1.937 mls/ hr PER PROTOCOL IV Last administered on 07/27/18 02:05; Admin Dose 7.746 MLS/HR; Start 07/26/18 at 01:30 Norepinephrine 250 ml @ 1.875 mls/ hr PER PROTOCOL IV Last administered on 07/26/18 19:41; Admin Dose 11.25 MLS/HR; Start 07/26/18 at 01:30 Cefepime HCl 50 ml @ 100 mls/hr Q12 IVPB Last administered on 07/27/18 08:30; Admin Dose 100 MLS/HR; Start 07/26/18 at 09:00 Azithromycin 250 ml @ 250 mls/hr DAILY IVPB Last administered on 07/26/18at 10:03; Admin Dose 250 MLS/HR; Start 07/26/18 at 09:00 Fenofibrate (Tricor) 145 mg DAILY PO Last administered on 07/27/18 08:31; Admin Dose 145 MG; Start 07/26/18 at 09:00 Methimazole (Tapazole) 5 mg BID PO Last administered on 07/27/18 08:31; Admin Dose 5 MG; Start 07/26/18 at 09:00 Famotidine (Pepcid) 20 mg DAILY GTB Last administered on 07/27/18 08:31; Admin Dose 20 MG; Start 07/27/18 at 09:00 Lorazepam (Ativan) 1 mg Q2H PRN GTB ANXIETY; Start 07/26/18 at 12:04 CHRISTINE LEBLANC MD Jul 27, 2018 08:44
[2018-07-27] MEDS: AZITHROMYCIN 500MG/NS (PMX) 250 ML IVPB SCH (09:13)
--- NOTE | 2018-07-27 09:51 | CONS ---
Date/Time of Note Date/Time of Note DATE: 07/27/18 TIME: 09:49 Assessment/Plan Assessment/Plan Assessment/Plan Chest x-ray showing pneumonia more pronounced on right lung. Assessment recommendations; 1. Patient admitted with respiratory failure due to bilateral pneumonia, currently on appropriate antimicrobial regimen. 2. Air leak around endotracheal tube. Will require reintubation. Continue current supportive care. Result Diagram: 07/27/18 0525 07/27/18 0525 Results 24hrs Laboratory Tests Test 07/26/18 11:49 07/27/18 05:25 07/27/18 07:00 07/27/18 08:36 Magnesium Level 1.8 2.5 Creatine Kinase 208 H 92 Creatine Kinase 1.1 1.8 Index Creatinine Kinase 2.36 1.69 MB (Mass) Troponin I 0.572 *H 0.134 *H White Blood Count 15.2 #H Red Blood Count 2.99 L Hemoglobin 9.4 L Hematocrit 27.7 L Mean Corpuscular 92.6 Volume Mean Corpuscular 31.4 Hemoglobin Mean Corpuscular 33.9 Hemoglobin Concent Red Cell 13.5 Distribution Width Platelet Count 332 Mean Platelet 10.0 Volume Immature 2.500 H Granulocytes % Neutrophils % Segmented 64 Neutrophils % (Manual) Band Neutrophils % 30 H (Manual) Lymphocytes % Lymphocytes % 4 L (Manual) Monocytes % Monocytes % 2 (Manual) Eosinophils % Basophils % Nucleated Red 0.0 Blood Cells % Immature 0.380 H Granulocytes # Neutrophils # Neutrophils # 10.4 H (Manual) Band Neutrophils # 4.5 H Lymphocytes 0.6 L (Manual) Lymphocytes # Monocytes # Monocytes # 0.3 (Manual) Eosinophils # Basophils # Nucleated Red Blood Cells # Toxic Granulation 1+ Platelet Estimate NORMAL Polychromasia 1+ Poikilocytosis 1+ Anisocytosis 1+ Macrocytosis 1+ Sodium Level 135 Potassium Level 3.6 Chloride Level 100 Carbon Dioxide 28 Level Anion Gap 7 Blood Urea 24 H Nitrogen Creatinine 0.52 Est Glomerular Filtrat Rate mL/min Glucose Level 127 Calcium Level 8.8 Phosphorus Level 0.9 L Triglycerides 106 Level Cholesterol Level 71 L LDL Cholesterol, 25 Calculated HDL Cholesterol 25 L Cholesterol/HDL 2.8 Ratio Blood Gas Specimen Blood arterial Source Arterial Blood 07/27/2018 7:23:13 Date Drawn AM Arterial Blood pH 7.329 L (Temp corrected) Arterial Blood 49.8 H pCO2 (Temp correct) Arterial Blood pO2 123.8 H (Temp corrected) Arterial Blood 25.6 HCO3 Arterial Blood -0.7 Base Excess Arterial Blood 98.3 Oxygen Saturation Pio Test ACCEPTAB Arterial Blood Gas Left Radial Puncture Site Arterial 0.3 Blood Carboxyhemog lobin Arterial Blood 0.3 Methemoglobin Blood Gas A-a O2 539.4 H Differential Oxyhemoglobin 97.7 Percent Blood Gas 37.0 Temperature Blood Gas 16.0 Respiration Rate Blood Gas Actual 32 Respiration Rate Blood Gas Modality VENT - AC FiO2 100.0 Blood Gas Tidal 450.0 Volume Blood Gas Low PEEP 5.0 Setting Blood Gas Notified TM Whom Blood Gas Notified 07/27/2018 7:36:49 Time AM Consultation Date/Type/Reason Admit Date/Time Jul 26, 2018 at 01:38 Initial Consult Date Type of Consult Pulmonary/critical care Reason for Consultation Patient's condition remains critical. Still requiring invasive mechanical ventilation. Patient however has remained hemodynamically stable. General exam; elderly female, sedated, currently no distress. Orally intubated. Exam/Review of Systems Vital Signs Vitals Vital Signs Date Temp Pulse Resp B/P (MAP) Pulse Ox O2 O2 Flow FiO2 Time Delivery Rate 07/27/18 100 08:50 07/27/18 90 28 123/54 100 08:15 (77) 07/27/18 98.8 Mechanical 08:00 Ventilator 07/26/18 16.0 04:55 Intake and Output 07/26/18 07/26/18 07/27/18 1414:59 22:59 06:59 IntakeIntake Total 1650.301 ml 1317.545 ml 1085.30 ml OutputOutput Total 235 ml 417 ml 300 ml BalanceBalance 1415.301 ml 900.545 ml 785.30 ml Exam HEENT exam; supple neck, no JVD. No lymphadenopathy. Midline trachea. No thyromegaly. Orally intubated. Patient has a multiple carious teeth. Chest exam; diminished breath sounds bilaterally. S1-S2 audible, no murmurs. Regular rhythm. Abdomen exam; soft, no organomegaly. Bowel sounds audible. Extremity exam; no peripheral edema or clubbing. [employer]ING [employer] exam; patient is sedated. Medications Medications Current Medications Dextrose/Sodium Chloride 1,000 ml @ 100 mls/hr Q10H IV Last administered on 07/27/18at 02:08; Admin Dose 100 MLS/HR; Start 07/26/18 at 01:20 Ondansetron HCl (Zofran Inj) 4 mg Q6H PRN IV NAUSEA AND/OR VOMITING; Start 07/26/18 at 01:30 Albuterol (Ventolin Hfa) 4 puff Q2H RESP THERAPY PRN INH SHORTNESS OF BREATH; Start 07/26/18 at 01:30 Ipratropium [place] (Atrovent Hfa) 4 puff Q2H RESP THERAPY PRN INH SHORTNESS OF BREATH; Start 07/26/18 at 01:30 Acetaminophen (Tylenol Liquid) 650 mg Q6H PRN PO PAIN LEVEL 1-3 OR FEVER Last administered on 07/26/18 12:26; Admin Dose 650 MG; Start 07/26/18 at 01:30 Enoxaparin Sodium (Lovenox) 40 mg DAILY SC Last administered on 07/27/18 08:33; Admin Dose 40 MG; Start 07/26/18 at 09:00 Propofol 100 ml @ 1.937 mls/ hr PER PROTOCOL IV Last administered on 07/27/18 02:05; Admin Dose 7.746 MLS/HR; Start 07/26/18 at 01:30 Norepinephrine 250 ml @ 1.875 mls/ hr PER PROTOCOL IV Last administered on 07/26/18 19:41; Admin Dose 11.25 MLS/HR; Start 07/26/18 at 01:30 Cefepime HCl 50 ml @ 100 mls/hr Q12 IVPB Last administered on 07/27/18 08:30; Admin Dose 100 MLS/HR; Start 07/26/18 at 09:00 Azithromycin 250 ml @ 250 mls/hr DAILY IVPB Last administered on 07/27/18 09:13; Admin Dose 250 MLS/HR; Start 07/26/18 at 09:00 Fenofibrate (Tricor) 145 mg DAILY PO Last administered on 07/27/18 08:31; Admin Dose 145 MG; Start 07/26/18 at 09:00 Methimazole (Tapazole) 5 mg BID PO Last administered on 07/27/18 08:31; Admin Dose 5 MG; Start 07/26/18 at 09:00 Famotidine (Pepcid) 20 mg DAILY GTB Last administered on 07/27/18at 08:31; Admin Dose 20 MG; Start 07/27/18 at 09:00 Lorazepam (Ativan) 1 mg Q2H PRN GTB ANXIETY; Start 07/26/18 at 12:04 MARIE PRADO Jul 27, 2018 09:51
--- NOTE | 2018-07-27 09:52 | EN ---
Date/Time of Note Date/Time of Note DATE: 07/27/18 TIME: 09:52 Event Note Medicine Medicine Event Note Endotracheal intubation. Indications air leak around endotracheal tube cuff. Patient already was on mechanical ventilation. Was on propofol for sedation. Patient was orally intubated with 7.5 endotracheal tube without difficulty. Confirmation was placed by end-tidal CO2 indicator. Chest x-ray has been ordered. Procedure time; 8:45 AM. MARIE PRADO Jul 27, 2018 09:52
--- NOTE | 2018-07-27 10:26 | PN ---
Date/Time of Note Date/Time of Note DATE: 07/27/18 TIME: 10:22 Assessment/Plan VTE Prophylaxis Risk score (from Ns)>0 risk: 7 SCD applied (from Ns): Yes Pharmacological prophylaxis: LMWH Lines/Catheters IV Catheter Type (from [facility] Saline Lock Urinary Cath still in place: Yes Reason Cath still needed: other (indicate) (intuabted) Assessment/Plan Assessment/Plan 87 yo woman admitted for pneumonia with severe sepsis and acute respiratory failure requiring mechanical ventilation. # Hypercapnic and hypoxic respiratory failure: - Intubated 07/25. Likely secondary to pneumonia and possibly COPD exacerbation as well given history - Continue vent support. Pulmonary following - IV antibiotics - Respiratory culture and blood culture - If no improvement, will consider chest CT # Positive troponin: Likely demand ischemia from above - trops slowly trending down - Dr Perrin following - Only prophylactic dose lovenox for now. - 2D echo # History of hypertension: Currently requiring pressors # Hyperthyroidism: TSH currently at safe level. Continue methimazole # Dyslipidemia: Continue fenofibrate Code status: Do not resuscitate, do not re-intubate. Result Diagram: 07/27/1825 07/27/18 0525 Results 24hrs Laboratory Tests Test 07/26/18 11:49 07/27/18 05:25 07/27/18 07:00 07/27/18 08:36 Magnesium Level 1.8 2.5 Creatine Kinase 208 H 92 Creatine Kinase 1.1 1.8 Index Creatinine Kinase 2.36 1.69 MB (Mass) Troponin I 0.572 *H 0.134 *H White Blood Count 15.2 #H Red Blood Count 2.99 L Hemoglobin 9.4 L Hematocrit 27.7 L Mean Corpuscular 92.6 Volume Mean Corpuscular 31.4 Hemoglobin Mean Corpuscular 33.9 Hemoglobin Concent Red Cell 13.5 Distribution Width Platelet Count 332 Mean Platelet 10.0 Volume Immature 2.500 H Granulocytes % Neutrophils % Segmented 64 Neutrophils % (Manual) Band Neutrophils % 30 H (Manual) Lymphocytes % Lymphocytes % 4 L (Manual) Monocytes % Monocytes % 2 (Manual) Eosinophils % Basophils % Nucleated Red 0.0 Blood Cells % Immature 0.380 H Granulocytes # Neutrophils # Neutrophils # 10.4 H (Manual) Band Neutrophils # 4.5 H Lymphocytes 0.6 L (Manual) Lymphocytes # Monocytes # Monocytes # 0.3 (Manual) Eosinophils # Basophils # Nucleated Red Blood Cells # Toxic Granulation 1+ Platelet Estimate NORMAL Polychromasia 1+ Poikilocytosis 1+ Anisocytosis 1+ Macrocytosis 1+ Sodium Level 135 Potassium Level 3.6 Chloride Level 100 Carbon Dioxide 28 Level Anion Gap 7 Blood Urea 24 H Nitrogen Creatinine 0.52 Est Glomerular Filtrat Rate mL/min Glucose Level 127 Calcium Level 8.8 Phosphorus Level 0.9 L Triglycerides 106 Level Cholesterol Level 71 L LDL Cholesterol, 25 Calculated HDL Cholesterol 25 L Cholesterol/HDL 2.8 Ratio Blood Gas Specimen Blood arterial Source Arterial Blood 07/27/2018 7:23:13 Date Drawn AM Arterial Blood pH 7.329 L (Temp corrected) Arterial Blood 49.8 H pCO2 (Temp correct) Arterial Blood pO2 123.8 H (Temp corrected) Arterial Blood 25.6 HCO3 Arterial Blood -0.7 Base Excess Arterial Blood 98.3 Oxygen Saturation Pio Test ACCEPTAB Arterial Blood Gas Left Radial Puncture Site Arterial 0.3 Blood Carboxyhemog lobin Arterial Blood 0.3 Methemoglobin Blood Gas A-a O2 539.4 H Differential Oxyhemoglobin 97.7 Percent Blood Gas 37.0 Temperature Blood Gas 16.0 Respiration Rate Blood Gas Actual 32 Respiration Rate Blood Gas Modality VENT - AC FiO2 100.0 Blood Gas Tidal 450.0 Volume Blood Gas Low PEEP 5.0 Setting Blood Gas Notified TM Whom Blood Gas Notified 07/27/2018 7:36:49 Time AM Subjective 24 Hr Interval Summary Free Text/Dictation ET tube changed overnight due to misplacement and leak. Still on propofol 50. Norepinephrine down to 6. Family at bedside. Exam/Review of Systems Vital Signs Vitals Vital Signs Date Temp Pulse Resp B/P (MAP) Pulse Ox O2 O2 Flow FiO2 Time Delivery Rate 07/27/18 100 08:50 07/27/18 90 28 123/54 100 08:15 (77) 07/27/18 98.8 Mechanical 08:00 Ventilator 07/26/18 16.0 04:55 Intake and Output 07/26/18 07/26/18 07/27/18 1515:00 23:00 07:00 IntakeIntake Total 1562.723 ml 1425.855 ml 1039.173 ml OutputOutput Total 227 ml 430 ml 260 ml BalanceBalance 1335.723 ml 995.855 ml 779.173 ml Exam Gen: Elderly woman intubated, sedated. HEENT: Moist mucous membranes, ET tube in place. Neck: No lymphadenopathy Chest: L chest subclavian line in place Card:regular rate and rhythm, no murmurs Pulm: Mechanical breath sounds with crackles throughout. Abd: Soft, nondistended. Ext: No cyanosis/clubbing/edema. Medications Medications Current Medications Dextrose/Sodium Chloride 1,000 ml @ 100 mls/hr Q10H IV Last administered on 07/27/18 02:08; Admin Dose 100 MLS/HR; Start 07/26/18 at 01:20 Ondansetron HCl (Zofran Inj) 4 mg Q6H PRN IV NAUSEA AND/OR VOMITING; Start 07/26/18 at 01:30 Albuterol (Ventolin Hfa) 4 puff Q2H RESP THERAPY PRN INH SHORTNESS OF BREATH; Start 07/26/18 at 01:30 Ipratropium [place] (Atrovent Hfa) 4 puff Q2H RESP THERAPY PRN INH SHORTNESS OF BREATH; Start 07/26/18 at 01:30 Acetaminophen (Tylenol Liquid) 650 mg Q6H PRN PO PAIN LEVEL 1-3 OR FEVER Last administered on 07/26/18 12:26; Admin Dose 650 MG; Start 07/26/18 at 01:30 Enoxaparin Sodium (Lovenox) 40 mg DAILY SC Last administered on 07/27/18 08:33; Admin Dose 40 MG; Start 07/26/18 at 09:00 Propofol 100 ml @ 1.937 mls/ hr PER PROTOCOL IV Last administered on 07/27/18 02:05; Admin Dose 7.746 MLS/HR; Start 07/26/18 at 01:30 Norepinephrine 250 ml @ 1.875 mls/ hr PER PROTOCOL IV Last administered on 19:41; Admin Dose 11.25 MLS/HR; Start 07/26/18 at 01:30 Cefepime HCl 50 ml @ 100 mls/hr Q12 IVPB Last administered on 07/27/18 08:30; Admin Dose 100 MLS/HR; Start 07/26/18 at 09:00 Azithromycin 250 ml @ 250 mls/hr DAILY IVPB Last administered on 07/27/18 09:13; Admin Dose 250 MLS/HR; Start 07/26/18 at 09:00 Fenofibrate (Tricor) 145 mg DAILY PO Last administered on 07/27/18 08:31; Admin Dose 145 MG; Start 07/26/18 at 09:00 Methimazole (Tapazole) 5 mg BID PO Last administered on 07/27/18 08:31; Admin Dose 5 MG; Start 07/26/18 at 09:00 Famotidine (Pepcid) 20 mg DAILY GTB Last administered on 07/27/18 08:31; Admin Dose 20 MG; Start 07/27/18 at 09:00 Lorazepam (Ativan) 1 mg Q2H PRN GTB ANXIETY; Start 07/26/18 at 12:04 YESSY LANDEROS MD Jul 27, 2018 10:26
[2018-07-27] MEDS: ACETAMINOPHEN 650MG/20.3ML CUP PO PRN (17:23)
[2018-07-27] MEDS: NORepinephrine 8MG/250 ML (PMX 250 ML IV SCH (19:14)
[2018-07-28] VITALS (108 sets, daily range): BP systolic 52–140; BP diastolic 37–80; PULSE 76–110; RESP 16–29
[2018-07-28] MEDS: ACETAMINOPHEN 650MG/20.3ML CUP PO PRN ×2 (00:17→15:57)
[2018-07-28] MEDS: DEXTROSE 5%-0.45% NACL 1,000 ML IV SCH (02:00)
[2018-07-28] MEDS: PROPOFOL 100 ML IV SCH ×3 (07:28→20:43)
[2018-07-28] MEDS ORDERED: ALBUTEROL 0.083% (NEB) 2.5 MG/3 ML AMP HHN SCH (08:00)
[2018-07-28] MEDS ORDERED: ACETYLCYSTEINE 20% 4 ML VIAL NEB SCH (08:00)
[2018-07-28] MEDS ORDERED: ALBUTEROL/IPRATROPIUM (NEB) 3 ML AMP HHN SCH (08:00)
--- NOTE | 2018-07-28 08:09 | CONS ---
Date/Time of Note Date/Time of Note DATE: 07/28/18 TIME: 08:06 Consult Date/Type/Reason Admit Date/Time Jul 26, 2018 at 01:38 Initial Consult Date Subjective Day 3 intubation ICU pneumonia sepsis syndrome on pressors. Spoke with patient's critical care nurse. Yesterday patient was visited by granddaughter, suggest educating her insofar as patient's critical condition and what are her current major medical problems that will contribute to her morbidity and mortality. Will discuss with Dr. Santo Objective Vital Signs Date Temp Pulse Resp B/P (MAP) Pulse Ox O2 O2 Flow FiO2 Time Delivery Rate 07/28/18 92 22 99 75 07:38 07/28/18 90/52 (65) Mechanical 07:00 Ventilator 07/28/18 99.2 04:00 07/26/18 16.0 04:55 Intake and Output 07/27/18 07/27/18 07/28/18 1414:59 22:59 06:59 IntakeIntake Total 1037.464 ml 1334.339 ml 1289.098 ml OutputOutput Total 390 ml 410 ml 425 ml BalanceBalance 647.464 ml 924.339 ml 864.098 ml Results/Medications Result Diagram: 07/27/18 0525 07/27/18 0525 Results 24 hrs Laboratory Tests Test 07/27/18 08:36 07/27/18 14:54 Creatine Kinase 92 Creatine Kinase Index 1.8 Creatinine Kinase MB (Mass) 1.69 Troponin I 0.134 *H Blood Gas Specimen Source Blood arterial Arterial Blood Date Drawn 07/27/2018 6:10:14 PM Arterial Blood pH (Temp corrected) 7.360 Arterial Blood pCO2 (Temp correct) 46.7 H Arterial Blood pO2 (Temp corrected) 69.1 L Arterial Blood HCO3 25.8 Arterial Blood Base Excess 0.2 Arterial Blood Oxygen Saturation 94.3 L Pio Test ACCEPTAB Arterial Blood Gas Puncture Site Left Radial Arterial Blood Carboxyhemoglobin 0.2 Arterial Blood Methemoglobin 0.5 Blood Gas A-a O2 Differential 597.2 H Oxyhemoglobin Percent 93.6 Blood Gas Temperature 37.0 Blood Gas Respiration Rate 16.0 Blood Gas Actual Respiration Rate 16 Blood Gas Modality VENT - AC FiO2 100.0 Blood Gas Tidal Volume 450.0 Blood Gas Low PEEP Setting 5.0 Blood Gas Critical Value Read Back Estrellita TRAN Blood Gas Notified Whom RDIX Blood Gas Notified Time 07/27/2018 6:27:43 PM Medications Current Medications Dextrose/Sodium Chloride 1,000 ml @ 100 mls/hr Q10H IV Last administered on 07/28/18 02:00; Admin Dose 100 MLS/HR; Start 07/26/18 at 01:20 Ondansetron HCl (Zofran Inj) 4 mg Q6H PRN IV NAUSEA AND/OR VOMITING; Start 07/26/18 at 01:30 Albuterol (Ventolin Hfa) 4 puff Q2H RESP THERAPY PRN INH SHORTNESS OF BREATH; Start 07/26/18 at 01:30 Ipratropium [place] (Atrovent Hfa) 4 puff Q2H RESP THERAPY PRN INH SHORTNESS OF BREATH; Start 07/26/18 at 01:30 Acetaminophen (Tylenol Liquid) 650 mg Q6H PRN PO PAIN LEVEL 1-3 OR FEVER Last administered on 07/28/18 00:17; Admin Dose 650 MG; Start 07/26/18 at 01:30 Enoxaparin Sodium (Lovenox) 40 mg DAILY SC Last administered on 07/27/18 08:33; Admin Dose 40 MG; Start 07/26/18 at 09:00 Propofol 100 ml @ 1.937 mls/ hr PER PROTOCOL IV Last administered on 07/28/18 07:28; Admin Dose 9.683 MLS/HR; Start 07/26/18 at 01:30 Norepinephrine 250 ml @ 1.875 mls/ hr PER PROTOCOL IV Last administered on 19:14; Admin Dose 15 MLS/HR; Start 07/26/18 at 01:30 Cefepime HCl 50 ml @ 100 mls/hr Q12 IVPB Last administered on 07/27/18 21:07; Admin Dose 100 MLS/HR; Start 07/26/18 at 09:00 Azithromycin 250 ml @ 250 mls/hr DAILY IVPB Last administered on 07/27/18 09:13; Admin Dose 250 MLS/HR; Start 07/26/18 at 09:00 Fenofibrate (Tricor) 145 mg DAILY PO Last administered on 07/27/18 08:31; Admin Dose 145 MG; Start 07/26/18 at 09:00 Methimazole (Tapazole) 5 mg BID PO Last administered on 07/27/18at 21:09; Admin Dose 5 MG; Start 07/26/18 at 09:00 Famotidine (Pepcid) 20 mg DAILY GTB Last administered on 07/27/18at 08:31; Admin Dose 20 MG; Start 07/27/18 at 09:00 Lorazepam (Ativan) 1 mg Q2H PRN GTB ANXIETY; Start 07/26/18 at 12:04 Acetylcysteine (Mucomyst) 2 ml Q6H RESP THERAPY NEB ; Start 07/28/18 at 08:00 Albuterol (Proventil 0.083% (Neb)) 2.5 mg Q6H RESP THERAPY HHN ; Start 07/28/18 at 08:00 Assessment/Plan Chief Complaint/Hosp Course 87-year-old female who is in the intensive care unit [facility] who presented with respiratory failure with a history of COPD. There are no family members at bedside my understanding is that they left at 3 AM this morning. Patient is intubated on 6 mics of levo fed and presented to the hospital here in respiratory distress with 3-day history of increasing respiratory symptoms. Other comorbid medical problems include history of hypothyroidism hypertension. Patient's initial chest x-ray showed bilateral pneumonia first troponin 0 0.67. Additional Assessment/Plan Bilateral pneumonia Intubated on broad-spectrum IV antibiotic coverage patient with history of COPD History of comorbid medical problems including hypertension hypothyroidism. Still early in patient's clinical course patient is DO NOT RESUSCITATE do not reintubate LAWRENCE BARLOW Jul 28, 2018 08:09
[2018-07-28] MEDS: FENOFIBRATE 145 MG TAB PO SCH (09:26)
[2018-07-28] MEDS: CEFEPIME 1GM/50 ML (PMX) 50 ML IVPB SCH ×2 (09:26→20:31)
[2018-07-28] MEDS: FAMOTIDINE 20 MG TAB GTB SCH (09:26)
[2018-07-28] MEDS: METHIMAZOLE 5 MG TAB PO SCH ×2 (09:26→20:26)
[2018-07-28] MEDS: ENOXAPARIN 40 MG/0.4 ML SYG SC SCH (09:27)
[2018-07-28] MEDS: AZITHROMYCIN 500MG/NS (PMX) 250 ML IVPB SCH (10:11)
--- NOTE | 2018-07-28 11:53 | CONS ---
Date/Time of Note Date/Time of Note DATE: 07/28/18 TIME: 11:52 Consult Date/Type/Reason Admit Date/Time Jul 26, 2018 at 01:38 Initial Consult Date Type of Consultation: Pulmonary ICU Subjective Continues vasopressor support chest x-ray shows worsening right-sided infi ltrate. Objective Vital Signs Date Temp Pulse Resp B/P (MAP) Pulse Ox O2 O2 Flow FiO2 Time Delivery Rate 07/28/18 103 22 94 100 11:19 07/28/18 101/43 11:15 (62) 07/28/18 Mechanical 11:00 Ventilator 07/28/18 99.0 08:00 07/26/18 16.0 04:55 Intake and Output 07/27/18 07/27/18 07/28/18 1515:00 23:00 07:00 IntakeIntake Total 1057.464 ml 1349.964 ml 1292.415 ml OutputOutput Total 430 ml 430 ml 400 ml BalanceBalance 627.464 ml 919.964 ml 892.415 ml Exam GENERAL: Frail elderly lady on mechanical ventilation. VITAL SIGNS: per chart NECK: Supple. No JVD or lymphadenopathy. CARDIAC EXAM: S1, S2. No added sounds or murmurs. CHEST: Diminished air entry bilaterally ABDOMEN: Soft, nontender. No guarding or rebound. EXTREMITIES: No cyanosis, clubbing or edema. NEUROLOGIC: Generalized weakness. No focal deficits. Results/Medications Result Diagram: 07/28/18 0939 07/28/18 0940 Results 24 hrs Laboratory Tests Test 07/27/18 14:54 07/28/18 09:39 07/28/18 09:40 07/28/18 10:06 Blood Gas Blood arterial Blood arterial Specimen Source Arterial Blood 07/27/2018 6:10:14 07/28/2018 10:40:2 Date Drawn PM 3 AM Arterial Blood 7.360 7.293 *L pH (Temp corrected) Arterial Blood 46.7 H 49.4 H pCO2 (Temp correct) Arterial Blood 69.1 L 49.2 *L pO2 (Temp corrected) Arterial Blood 25.8 23.4 HCO3 Arterial Blood 0.2 -3.3 L Base Excess Arterial Blood 94.3 L 84.7 L Oxygen Saturatio n Pio Test ACCEPTAB ACCEPTAB Arterial Blood Left Radial LB Gas Puncture Site Arterial 0.2 0.3 Blood Carboxyhem oglobin Arterial Blood 0.5 0.2 Methemoglobin Blood Gas A-a O2 597.2 H 396.8 H Differential Oxyhemoglobin 93.6 84.3 L Percent Blood Gas 37.0 37.0 Temperature Blood Gas 16.0 16.0 Respiration Rate Blood Gas Actual 16 24 Respiration Rate Blood Gas VENT - AC VENT - AC Modality FiO2 100.0 70.0 Blood Gas Tidal 450.0 450.0 Volume Blood Gas Low 5.0 PEEP Setting Blood Gas L. MARTHA RODRIGUEZ RN Critical Value Read Back Blood Gas RDIX T MART [facility] Notified Whom Blood Gas 07/27/2018 6:27:43 07/28/2018 10:46:3 Notified Time PM 7 AM White Blood 20.9 #H Count Red Blood Count 2.92 L Hemoglobin 9.2 L Hematocrit 27.2 L Mean Corpuscular 93.2 Volume Mean Corpuscular 31.5 Hemoglobin Mean Corpuscular 33.8 Hemoglobin Georgette nt Red Cell 14.0 Distribution Width Platelet Count 318 Mean Platelet 9.5 Volume Immature 4.000 H Granulocytes % Neutrophils % Lymphocytes % Monocytes % Eosinophils % Basophils % Nucleated Red 0.0 Blood Cells % Immature 0.830 H Granulocytes # Neutrophils # Lymphocytes # Monocytes # Eosinophils # Basophils # Nucleated Red Blood Cells # Sodium Level 133 L Potassium Level 3.7 Chloride Level 101 Carbon Dioxide 25 Level Anion Gap 7 Blood Urea 23 H Nitrogen Creatinine 0.48 Est Glomerular Filtrat Rate mL/min Glucose Level 169 Calcium Level 8.7 Phosphorus Level 1.3 L Magnesium Level 2.3 Total Bilirubin 0.1 L Direct Bilirubin 0.00 Indirect 0.1 Bilirubin Aspartate Amino 32 Transf (AST/SGOT ) Alanine 23 Aminotransferase (ALT/SGPT) Alkaline 67 Phosphatase Total Protein 5.3 L Albumin 2.4 L Globulin 2.90 Albumin/Globulin 0.82 Ratio Blood Gas High 5.0 PEEP Setting Medications Current Medications Dextrose/Sodium Chloride 1,000 ml @ 100 mls/hr Q10H IV Last administered on 07/28/18at 02:00; Admin Dose 100 MLS/HR; Start 07/26/18 at 01:20; Status Hold Ondansetron HCl (Zofran Inj) 4 mg Q6H PRN IV NAUSEA AND/OR VOMITING; Start 07/26/18 at 01:30 Acetaminophen (Tylenol Liquid) 650 mg Q6H PRN PO PAIN LEVEL 1-3 OR FEVER Last administered on 07/28/18 00:17; Admin Dose 650 MG; Start 07/26/18 at 01:30 Enoxaparin Sodium (Lovenox) 40 mg DAILY SC Last administered on 07/28/18 09:27; Admin Dose 40 MG; Start 07/26/18 at 09:00 Propofol 100 ml @ 1.937 mls/ hr PER PROTOCOL IV Last administered on 07/28/18 11:01; Admin Dose 9.683 MLS/HR; Start 07/26/18 at 01:30 Norepinephrine 250 ml @ 1.875 mls/ hr PER PROTOCOL IV Last administered on 07/27/18 19:14; Admin Dose 15 MLS/HR; Start 07/26/18 at 01:30 Cefepime HCl 50 ml @ 100 mls/hr Q12 IVPB Last administered on 07/28/18 09:26; Admin Dose 100 MLS/HR; Start 07/26/18 at 09:00 Azithromycin 250 ml @ 250 mls/hr DAILY IVPB Last administered on 07/28/18 10:11; Admin Dose 250 MLS/HR; Start 07/26/18 at 09:00 Fenofibrate (Tricor) 145 mg DAILY PO Last administered on 07/28/18 09:26; Admin Dose 145 MG; Start 07/26/18 at 09:00 Methimazole (Tapazole) 5 mg BID PO Last administered on 07/28/18 09:26; Admin Dose 5 MG; Start 07/26/18 at 09:00 Famotidine (Pepcid) 20 mg DAILY GTB Last administered on 07/28/18 09:26; Admin Dose 20 MG; Start 07/27/18 at 09:00 Lorazepam (Ativan) 1 mg Q2H PRN GTB ANXIETY; Start 07/26/18 at 12:04 Ipratropium [place] (Atrovent Hfa) 4 puff Q6H RESP THERAPY INH ; Start 07/28/18 at 14:00 Assessment/Plan Chief Complaint/Hosp Course IMPRESSION AND 1. Acute hypoxemic respiratory failure, likely secondary to community-acquired pneumonia. Progressive infiltrate on chest x-ray today 2. Probable underlying restrictive lung disease. 3. Elevated troponin, likely type 2 non-ST elevation [place]. The patient to continue with: 4. Septic shock secondary to above Plan 2. Broad-spectrum antibiotics. 3. Mechanical ventilation. 4. Sedation and pressors as needed. 5. tube feeding. 6. Deep vein thrombosis and gastrointestinal prophylaxis. CYNDEE SAAVEDRA MD, [facility] Jul 28, 2018 11:53
--- NOTE | 2018-07-28 11:55 | RADRPT ---
Vent Rate: 106 bpm RR Interval: 0 msec MT Interval: 0 msec QRS Duration: 70 msec QT Interval: 380 msec QTC Interval: 504 msec P-R-T [place]: 0 - 83 - 76 degrees Accelerated Junctional rhythm with fusion complexes Nonspecific ST abnormality Abnormal ECG Electronically Signed By: Brennen Causey [id number]
--- NOTE | 2018-07-28 12:01 | RADRPT ---
Vent Rate: 93 bpm RR Interval: 0 msec VT Interval: 126 msec QRS Duration: 84 msec QT Interval: 332 msec QTC Interval: 412 msec P-R-T [place]: 32 - 80 - 40 degrees Normal sinus rhythm Normal ECG Electronically Signed By: Brennen Causey [id number]
[2018-07-28] MEDS: NORepinephrine 8MG/250 ML (PMX 250 ML IV SCH (12:15)
--- NOTE | 2018-07-28 14:09 | CONS ---
Date/Time of Note Date/Time of Note DATE: 07/28/18 TIME: 14:05 Assessment/Plan Assessment/Plan Hospital Course IMPRESSION: 1. Tachyarrhythmia concerning for possible accelerated junctional rhythm, likely consistent with ongoing sinus tachycardia with intermittently aberrantly conducted beats possibly rate related. 2. Bundle branch block, intermittent, in correction of rate related. I doubt ischemic etiology of the bundle. 3. Positive troponin in the setting of sepsis and hypotension. 4. Hypotension, on pressor support.-remains on levo 5. Anemia. 6. Respiratory failure, status post intubation. 7. Abnormal echocardiogram, assess for acute coronary syndrome with altered mental state. 8. Positive troponin-minimal and downtrending Recc: -ICU -serial ecg's -F/U cx data and continue broad spectrum abx's -Continue tricor -Continue tapazole -Correct acid/base status Result Diagram: 07/28/18 0939 07/28/18 0940 Results 24hrs Laboratory Tests Test 07/27/18 14:54 07/28/18 09:39 07/28/18 09:40 07/28/18 10:06 Blood Gas Blood arterial Blood arterial Specimen Source Arterial Blood 07/27/2018 6:10:14 07/28/2018 10:40:2 Date Drawn PM 3 AM Arterial Blood 7.360 7.293 *L pH (Temp corrected) Arterial Blood 46.7 H 49.4 H pCO2 (Temp correct) Arterial Blood 69.1 L 49.2 *L pO2 (Temp corrected) Arterial Blood 25.8 23.4 HCO3 Arterial Blood 0.2 -3.3 L Base Excess Arterial Blood 94.3 L 84.7 L Oxygen Saturatio n Pio Test ACCEPTAB ACCEPTAB Arterial Blood Left Radial LB Gas Puncture Site Arterial 0.2 0.3 Blood Carboxyhem oglobin Arterial Blood 0.5 0.2 Methemoglobin Blood Gas A-a O2 597.2 H 396.8 H Differential Oxyhemoglobin 93.6 84.3 L Percent Blood Gas 37.0 37.0 Temperature Blood Gas 16.0 16.0 Respiration Rate Blood Gas Actual 16 24 Respiration Rate Blood Gas VENT - AC VENT - AC Modality FiO2 100.0 70.0 Blood Gas Tidal 450.0 450.0 Volume Blood Gas Low 5.0 PEEP Setting Blood Gas Boby. MARTHA RODRIGUEZ RN Critical Value Read Back Blood Gas RDIX T MART [facility] Notified Whom Blood Gas 07/27/2018 6:27:43 07/28/2018 10:46:3 Notified Time PM 7 AM White Blood 20.9 #H Count Red Blood Count 2.92 L Hemoglobin 9.2 L Hematocrit 27.2 L Mean Corpuscular 93.2 Volume Mean Corpuscular 31.5 Hemoglobin Mean Corpuscular 33.8 Hemoglobin Georgette nt Red Cell 14.0 Distribution Width Platelet Count 318 Mean Platelet 9.5 Volume Immature 4.000 H Granulocytes % Neutrophils % Segmented 75 Neutrophils % (Manual) Band Neutrophils 13 H % (Manual) Lymphocytes % Lymphocytes % 10 L (Manual) Reactive 2 H Lymphocytes % (Manual) Monocytes % Eosinophils % Basophils % Nucleated Red 1 H Blood Cells % Immature 0.830 H Granulocytes # Neutrophils # Neutrophils # 16.2 H (Manual) Band Neutrophils 2.7 H # Lymphocytes 2.0 (Manual) Lymphocytes # Reactive 0.4 H Lymphocytes # Monocytes # Eosinophils # Basophils # Nucleated Red Blood Cells # Platelet NORMAL Estimate Anisocytosis 1+ Macrocytosis 1+ Sodium Level 133 L Potassium Level 3.7 Chloride Level 101 Carbon Dioxide 25 Level Anion Gap 7 Blood Urea 23 H Nitrogen Creatinine 0.48 Est Glomerular Filtrat Rate mL/min Glucose Level 169 Calcium Level 8.7 Phosphorus Level 1.3 L Magnesium Level 2.3 Total Bilirubin 0.1 L Direct Bilirubin 0.00 Indirect 0.1 Bilirubin Aspartate Amino 32 Transf (AST/SGOT ) Alanine 23 Aminotransferase (ALT/SGPT) Alkaline 67 Phosphatase Total Protein 5.3 L Albumin 2.4 L Globulin 2.90 Albumin/Globulin 0.82 Ratio Blood Gas High 5.0 PEEP Setting Consultation Date/Type/Reason Admit Date/Time Jul 26, 2018 at 01:38 Initial Consult Date 07/26/18 Type of Consult cardiology Reason for Consultation hypotension Requesting Provider: YESSY LANDEROS MD Exam/Review of Systems Vital Signs Vitals Vital Signs Date Temp Pulse Resp B/P (MAP) Pulse Ox O2 O2 Flow FiO2 Time Delivery Rate 07/28/18 104 21 99 70 13:17 07/28/18 99.9 88/42 (57) Mechanical 12:00 Ventilator 07/26/18 16.0 04:55 Intake and Output 07/27/18 07/27/18 07/28/18 1515:00 23:00 07:00 IntakeIntake Total 1057.464 ml 1349.964 ml 1292.415 ml OutputOutput Total 430 ml 430 ml 400 ml BalanceBalance 627.464 ml 919.964 ml 892.415 ml Exam Review of Systems: CONSTITUTIONAL: No fevers, chills. PULMONARY:intubated CARDIOVASCULAR: No chest pain/palpitations GASTROINTESTINAL: No nausea/vomiting. GENITOURINARY: No hematuria/dysuria. MUSCULOSKELETAL: No myagias/arthalgias. PSYCHIATRIC: The patient denies depression. NEUROLOGIC: No weakness Constitutional: alert Psych: no complaints Head: normocephalic ENMT: mucosa pink and moist Neck: supple, jvd (9 cm water) Respiratory: diminished breath sounds (at bases/B) Cardiovascular: regular rate and rhythm Gastrointestinal: soft, non-tender Musculoskeletal: muscle tone (normal) Extremities: edema (trace/B) Neurological: other (No focal deficits) Medications Medications Current Medications Dextrose/Sodium Chloride 1,000 ml @ 100 mls/hr Q10H IV Last administered on 07/28/18 02:00; Admin Dose 100 MLS/HR; Start 07/26/18 at 01:20; Status Hold Ondansetron HCl (Zofran Inj) 4 mg Q6H PRN IV NAUSEA AND/OR VOMITING; Start 07/26/18 at 01:30 Acetaminophen (Tylenol Liquid) 650 mg Q6H PRN PO PAIN LEVEL 1-3 OR FEVER Last administered on 07/28/18 00:17; Admin Dose 650 MG; Start 07/26/18 at 01:30 Enoxaparin Sodium (Lovenox) 40 mg DAILY SC Last administered on 07/28/18 09:27; Admin Dose 40 MG; Start 07/26/18 at 09:00 Propofol 100 ml @ 1.937 mls/ hr PER PROTOCOL IV Last administered on 07/28/18 11:01; Admin Dose 9.683 MLS/HR; Start 07/26/18 at 01:30 Norepinephrine 250 ml @ 1.875 mls/ hr PER PROTOCOL IV Last administered on 07/28/18 12:15; Admin Dose 18.75 MLS/HR; Start 07/26/18 at 01:30 Cefepime HCl 50 ml @ 100 mls/hr Q12 IVPB Last administered on 07/28/18 09:26; Admin Dose 100 MLS/HR; Start 07/26/18 at 09:00 Azithromycin 250 ml @ 250 mls/hr DAILY IVPB Last administered on 07/28/18at 10:11; Admin Dose 250 MLS/HR; Start 07/26/18 at 09:00 Fenofibrate (Tricor) 145 mg DAILY PO Last administered on 07/28/18 09:26; Admin Dose 145 MG; Start 07/26/18 at 09:00 Methimazole (Tapazole) 5 mg BID PO Last administered on 07/28/18 09:26; Admin Dose 5 MG; Start 07/26/18 at 09:00 Famotidine (Pepcid) 20 mg DAILY GTB Last administered on 07/28/18 09:26; Admin Dose 20 MG; Start 07/27/18 at 09:00 Lorazepam (Ativan) 1 mg Q2H PRN GTB ANXIETY; Start 07/26/18 at 12:04 Ipratropium [place] (Atrovent Hfa) 4 puff Q6H RESP THERAPY INH ; Start 07/28/18 at 14:00 YESSY KELLY Jul 28, 2018 14:09
[2018-07-28] MEDS: IPRATROPIUM (HFA) 12.9 GM INHALER INH SCH ×2 (14:33→19:55)
[2018-07-28] MEDS: ALBUTEROL HFA 8 GM INHALER INH SCH ×2 (14:33→19:55)
--- NOTE | 2018-07-28 15:59 | PN ---
Date/Time of Note Date/Time of Note DATE: 07/28/18 TIME: 15:57 Assessment/Plan VTE Prophylaxis Risk score (from Ns)>0 risk: 7 SCD applied (from Ns): Yes Pharmacological prophylaxis: LMWH Lines/Catheters IV Catheter Type (from [facility]): Central Line Central line still needed: Yes Urinary Cath still in place: Yes Reason Cath still needed: other (indicate) (intubated) Assessment/Plan Assessment/Plan 87 yo woman admitted for pneumonia with severe sepsis and acute respiratory failure requiring mechanical ventilation. # Hypercapnic and hypoxic respiratory failure: - Intubated 07/25. Likely secondary to pneumonia and possibly COPD exacerbation as well given history - Continue vent support. Pulmonary following - IV antibiotics - Respiratory culture and blood culture # Positive troponin: Likely demand ischemia from above - trops slowly trending down - Dr Perrin following - Only prophylactic dose lovenox for now. - 2D echo # History of hypertension: Currently requiring pressors # Hyperthyroidism: TSH currently at safe level. Continue methimazole # Dyslipidemia: Continue fenofibrate Code status: Do not resuscitate, do not re-intubate. Result Diagram: 07/28/18 0939 07/28/18 0940 Subjective 24 Hr Interval Summary Free Text/Dictation No acute overnight events. Patient febrile to 100.9 this morning and >101 later this afternoon. Pressors requirements and oxygen requirements increasing. Exam/Review of Systems Vital Signs Vitals Vital Signs Date Temp Pulse Resp B/P (MAP) Pulse Ox O2 O2 Flow FiO2 Time Delivery Rate 07/28/18 110 21 96 70 15:18 07/28/18 94/47 (63) 14:15 07/28/18 Mechanical 14:00 Ventilator 07/28/18 99.9 12:00 07/26/18 16.0 04:55 Intake and Output 07/27/18 07/27/18 07/28/18 1515:00 23:00 07:00 IntakeIntake Total 1057.464 ml 1349.964 ml 1292.415 ml OutputOutput Total 430 ml 430 ml 400 ml BalanceBalance 627.464 ml 919.964 ml 892.415 ml Exam Gen: Elderly woman intubated, sedated. HEENT: Moist mucous membranes, ET tube in place. Neck: No lymphadenopathy Chest: L chest subclavian line in place Card:regular rate and rhythm, no murmurs Pulm: Mechanical breath sounds with crackles throughout. Abd: Soft, nondistended. Ext: No cyanosis/clubbing/edema. Medications Medications Current Medications Dextrose/Sodium Chloride 1,000 ml @ 100 mls/hr Q10H IV Last administered on 07/28/18 02:00; Admin Dose 100 MLS/HR; Start 07/26/18 at 01:20; Status Hold Ondansetron HCl (Zofran Inj) 4 mg Q6H PRN IV NAUSEA AND/OR VOMITING; Start 07/26/18 at 01:30 Acetaminophen (Tylenol Liquid) 650 mg Q6H PRN PO PAIN LEVEL 1-3 OR FEVER Last administered on 07/28/18 00:17; Admin Dose 650 MG; Start 07/26/18 at 01:30 Enoxaparin Sodium (Lovenox) 40 mg DAILY SC Last administered on 07/28/18 09:27; Admin Dose 40 MG; Start 07/26/18 at 09:00 Propofol 100 ml @ 1.937 mls/ hr PER PROTOCOL IV Last administered on 07/28/18 11:01; Admin Dose 9.683 MLS/HR; Start 07/26/18 at 01:30 Norepinephrine 250 ml @ 1.875 mls/ hr PER PROTOCOL IV Last administered on 07/28/18 12:15; Admin Dose 18.75 MLS/HR; Start 07/26/18 at 01:30 Cefepime HCl 50 ml @ 100 mls/hr Q12 IVPB Last administered on 07/28/18 09:26; Admin Dose 100 MLS/HR; Start 07/26/18 at 09:00 Azithromycin 250 ml @ 250 mls/hr DAILY IVPB Last administered on 07/28/18 10:11; Admin Dose 250 MLS/HR; Start 07/26/18 at 09:00 Fenofibrate (Tricor) 145 mg DAILY PO Last administered on 07/28/18 09:26; Admin Dose 145 MG; Start 07/26/18 at 09:00 Methimazole (Tapazole) 5 mg BID PO Last administered on 07/28/18 09:26; Admin Dose 5 MG; Start 07/26/18 at 09:00 Famotidine (Pepcid) 20 mg DAILY GTB Last administered on 07/28/18at 09:26; Admin Dose 20 MG; Start 07/27/18 at 09:00 Lorazepam (Ativan) 1 mg Q2H PRN GTB ANXIETY; Start 07/26/18 at 12:04 Ipratropium [place] (Atrovent Hfa) 4 puff Q6H RESP THERAPY INH Last administered on 07/28/18at 14:33; Admin Dose 4 PUFF; Start 07/28/18 at 14:00 Albuterol (Ventolin Hfa) 4 puff Q6H RESP THERAPY INH Last administered on 07/28/18at 14:33; Admin Dose 4 PUFF; Start 07/28/18 at 14:00 YESSY LANDEROS MD Jul 28, 2018 15:59
[2018-07-28] MEDS: VASOPRESSIN 60 UNIT in DEXTROSE 5% 57 ML IV SCH (16:58)
[2018-07-28] MEDS ORDERED: FUROSEMIDE 20 MG INJ IV ONE (18:00)
[2018-07-29] VITALS (105 sets, daily range): BP systolic 64–125; BP diastolic 33–68; PULSE 91–117; RESP 14–31
[2018-07-29] MEDS: ALBUTEROL HFA 8 GM INHALER INH SCH ×4 (01:03→21:04)
[2018-07-29] MEDS: IPRATROPIUM (HFA) 12.9 GM INHALER INH SCH ×4 (01:03→21:03)
[2018-07-29] MEDS: PROPOFOL 100 ML IV SCH ×2 (04:30→15:14)
[2018-07-29] MEDS: VASOPRESSIN 60 UNIT in DEXTROSE 5% 57 ML IV SCH ×2 (04:30→15:22)
[2018-07-29] MEDS: NORepinephrine 8MG/250 ML (PMX 250 ML IV SCH ×2 (04:42→20:13)
[2018-07-29] MEDS ORDERED: SOD CHLORIDE 0.9% 1,000 ML IV ONE (05:30)
[2018-07-29] MEDS: FAMOTIDINE 20 MG TAB GTB SCH (08:43)
[2018-07-29] MEDS: FENOFIBRATE 145 MG TAB PO SCH (08:43)
[2018-07-29] MEDS: CEFEPIME 1GM/50 ML (PMX) 50 ML IVPB SCH ×2 (08:43→20:37)
[2018-07-29] MEDS: METHIMAZOLE 5 MG TAB PO SCH ×2 (08:43→20:37)
[2018-07-29] MEDS: ENOXAPARIN 40 MG/0.4 ML SYG SC SCH (09:00)
[2018-07-29] MEDS: AZITHROMYCIN 500MG/NS (PMX) 250 ML IVPB SCH (09:27)
--- NOTE | 2018-07-29 10:28 | CONS ---
Date/Time of Note Date/Time of Note DATE: 07/29/18 TIME: 10:26 Consult Date/Type/Reason Admit Date/Time Jul 26, 2018 at 01:38 Initial Consult Date Type of Consultation: Pulmonary ICU Requesting Provider: YESSY LANDEROS MD Subjective No significant changes. Continues mechanical ventilation chest x-ray shows improved aeration in the right lung. FiO2 decreased to 75%. Objective Vital Signs Date Temp Pulse Resp B/P (MAP) Pulse Ox O2 O2 Flow FiO2 Time Delivery Rate 07/29/18 104 27 95 75 09:02 07/29/18 105/45 08:15 (65) 07/29/18 99.1 Mechanical 08:00 Ventilator 07/26/18 16.0 04:55 Intake and Output 07/28/18 07/28/18 07/29/18 1515:00 23:00 07:00 IntakeIntake Total 911.874 ml 769.361 ml 1734.556 ml OutputOutput Total 280 ml 510 ml 215 ml BalanceBalance 631.874 ml 259.361 ml 1519.556 ml Exam GENERAL: Frail elderly lady on mechanical ventilation. VITAL SIGNS: per chart NECK: Supple. No JVD or lymphadenopathy. CARDIAC EXAM: S1, S2. No added sounds or murmurs. CHEST: Diminished air entry bilaterally ABDOMEN: Soft, nontender. No guarding or rebound. EXTREMITIES: No cyanosis, clubbing or edema. NEUROLOGIC: Generalized weakness. No focal deficits. Results/Medications Result Diagram: 07/29/18 0415 07/29/18 0415 Results 24 hrs Laboratory Tests Test 07/28/18 16:00 07/29/18 04:15 07/29/18 07:00 Blood Gas Specimen Blood arterial Blood arterial Source Arterial Blood Date 07/28/2018 4:00:23 PM 07/29/2018 7:11:54 AM Drawn Arterial Blood pH 7.342 L 7.366 (Temp corrected) Arterial Blood pCO2 42.1 41.9 (Temp correct) Arterial Blood pO2 52.4 *L 56.6 L (Temp corrected) Arterial Blood HCO3 22.3 23.5 Arterial Blood Base -3.3 L -1.8 Excess Arterial Blood 88.4 L 90.4 L Oxygen Saturation Pio Test ACCEPTAB ACCEPTAB Arterial Blood Gas LB Left Radial Puncture Site Arterial 0.4 0.2 Blood Carboxyhemoglobi n Arterial Blood 0.1 0.3 Methemoglobin Blood Gas A-a O2 401.4 H 433.6 H Differential Oxyhemoglobin Percent 88.0 L 89.9 L Blood Gas Temperature 37.0 37.0 Blood Gas Respiration 20.0 20.0 Rate Blood Gas Actual 20 27 Respiration Rate Blood Gas Modality VENT - AC VENT - AC FiO2 70.0 75.0 Blood Gas Tidal Volume 500.0 500.0 Blood Gas Low PEEP 8.0 10.0 Setting Blood Gas Critical S KIMBERLYN RN Value Read Back Blood Gas Notified DT TM Whom Blood Gas Notified 07/28/2018 4:20:28 PM 07/29/2018 7:26:26 AM Time White Blood Count 21.7 H Red Blood Count 2.79 L Hemoglobin 8.8 L Hematocrit 25.8 L Mean Corpuscular 92.5 Volume Mean Corpuscular 31.5 Hemoglobin Mean Corpuscular 34.1 Hemoglobin Concent Red Cell Distribution 14.1 Width Platelet Count 324 Mean Platelet Volume 9.9 Immature Granulocytes 4.600 H % Neutrophils % Segmented Neutrophils 67 % (Manual) Band Neutrophils % 23 H (Manual) Lymphocytes % Lymphocytes % (Manual) 5 L Monocytes % Monocytes % (Manual) 3 Eosinophils % Eosinophils % (Manual) 1 Basophils % Metamyelocytes % 1 H (manual) Nucleated Red Blood 0.1 H Cells % Immature Granulocytes 1.000 H # Neutrophils # Neutrophils # (Manual) 15.6 H Band Neutrophils # 4.9 H Lymphocytes (Manual) 1.0 Lymphocytes # Monocytes # Monocytes # (Manual) 0.6 Eosinophils # Basophils # Metamyelocytes # 0.2 H Nucleated Red Blood Cells # Toxic Granulation 1+ Platelet Estimate NORMAL Anisocytosis 2+ Macrocytosis 2+ Sodium Level 133 L Potassium Level 3.9 Chloride Level 102 Carbon Dioxide Level 25 Anion Gap 6 Blood Urea Nitrogen 33 H Creatinine 0.57 Est Glomerular Filtrat Rate mL/min Glucose Level 148 Calcium Level 9.1 Phosphorus Level 1.5 L Magnesium Level 2.3 Medications Current Medications Dextrose/Sodium Chloride 1,000 ml @ 100 mls/hr Q10H IV Last administered on 07/28/18at 02:00; Admin Dose 100 MLS/HR; Start 07/26/18 at 01:20; Status Hold Ondansetron HCl (Zofran Inj) 4 mg Q6H PRN IV NAUSEA AND/OR VOMITING; Start 07/26/18 at 01:30 Acetaminophen (Tylenol Liquid) 650 mg Q6H PRN PO PAIN LEVEL 1-3 OR FEVER Last administered on 07/28/18 15:57; Admin Dose 650 MG; Start 07/26/18 at 01:30 Enoxaparin Sodium (Lovenox) 40 mg DAILY SC Last administered on 07/29/18 09:00; Admin Dose 40 MG; Start 07/26/18 at 09:00 Propofol 100 ml @ 1.937 mls/ hr PER PROTOCOL IV Last administered on 07/29/18 04:30; Admin Dose 9.683 MLS/HR; Start 07/26/18 at 01:30 Norepinephrine 250 ml @ 1.875 mls/ hr PER PROTOCOL IV Last administered on 07/29/18 04:42; Admin Dose 15 MLS/HR; Start 07/26/18 at 01:30 Cefepime HCl 50 ml @ 100 mls/hr Q12 IVPB Last administered on 07/29/18 08:43; Admin Dose 100 MLS/HR; Start 07/26/18 at 09:00 Azithromycin 250 ml @ 250 mls/hr DAILY IVPB Last administered on 07/29/18 09:27; Admin Dose 250 MLS/HR; Start 07/26/18 at 09:00 Fenofibrate (Tricor) 145 mg DAILY PO Last administered on 07/29/18 08:43; Admin Dose 145 MG; Start 07/26/18 at 09:00 Methimazole (Tapazole) 5 mg BID PO Last administered on 07/29/18 08:43; Admin Dose 5 MG; Start 07/26/18 at 09:00 Famotidine (Pepcid) 20 mg DAILY GTB Last administered on 07/29/18 08:43; Admin Dose 20 MG; Start 07/27/18 at 09:00 Lorazepam (Ativan) 1 mg Q2H PRN GTB ANXIETY; Start 07/26/18 at 12:04 Ipratropium [place] (Atrovent Hfa) 4 puff Q6H RESP THERAPY INH Last adminis tered on 07/29/18 07:23; Admin Dose 4 PUFF; Start 07/28/18 at 14:00 Albuterol (Ventolin Hfa) 4 puff Q6H RESP THERAPY INH Last administered on 07/29/18at 07:24; Admin Dose 4 PUFF; Start 07/28/18 at 14:00 Vasopressin 60 unit/Dextrose 60 ml @ 1.2 mls/hr Q12H IV Last administered on 07/28/18at 16:58; Admin Dose 1.2 MLS/HR; Start 07/28/18 at 16:30 Potassium Phosphate 30 mm/ Sodium Chloride 260 ml @ 65 mls/hr ONCE ONCE IVPB ; Start 07/29/18 at 10:30; Stop 07/29/18 at 14:29 Assessment/Plan Chief Complaint/Hosp Course IMPRESSION 1. Acute hypoxemic respiratory failure, likely secondary to community-acquired pneumonia. Improved aeration right lung today. 2. Probable underlying restrictive lung disease. 3. Elevated troponin, likely type 2 non-ST elevation [place]. The patient to continue with: 4. Septic shock secondary to above Plan 2. Broad-spectrum antibiotics. 3. Mechanical ventilation. Continue decrease FiO2 as tolerated 4. Sedation and pressors as needed. Continues Levophed and vasopressin 5. tube feeding. 6. Deep vein thrombosis and gastrointestinal prophylaxis. Prognosis remains guarded critical care time 40 minutes. CYNDEE SAAVEDRA MD, [facility] Jul 29, 2018 10:28
[2018-07-29] MEDS ORDERED: POTASSIUM PHOSPHATE 30 MM in SOD CHLORIDE 0.9% 250 ML IVPB ONE (10:30)
--- NOTE | 2018-07-29 12:13 | PN ---
Date/Time of Note Date/Time of Note DATE: 07/29/18 TIME: 12:09 Assessment/Plan VTE Prophylaxis Risk score (from Ns)>0 risk: 8 SCD applied (from Ns): Yes Pharmacological prophylaxis: LMWH Lines/Catheters IV [facility] (from [facility] Saline Lock Urinary Cath still in place: Yes Reason Cath still needed: other (indicate) (intubated) Assessment/Plan Assessment/Plan 87 yo woman admitted for pneumonia with severe sepsis and acute respiratory failure requiring mechanical ventilation. # Hypercapnic and hypoxic respiratory failure: - Intubated 07/25. Likely secondary to pneumonia and possibly COPD exacerbation as well given history - Continue vent support. Pulmonary following - IV antibiotics - Resp culture growing H flu. - Continue tube feeds. - Blood cultures negative. # Positive troponin: Likely demand ischemia from above - trops slowly trending down - Dr Perrin following - Only prophylactic dose lovenox for now. - 2D echo # History of hypertension: Currently requiring pressors # Hyperthyroidism: TSH currently at safe level. Continue methimazole # Dyslipidemia: Continue fenofibrate Code status: Do not resuscitate, do not re-intubate. Result Diagram: 07/29/185 07/29/18 0415 Subjective 24 Hr Interval Summary Free Text/Dictation Required vasopressin yest afternoon; titrated off overnight now back on same dose of norepi 8. Oxygen requirements increased today. Family at bedside Exam/Review of Systems Vital Signs Vitals Vital Signs Date Temp Pulse Resp B/P (MAP) Pulse Ox O2 O2 Flow FiO2 Time Delivery Rate 07/29/18 104 27 95 75 09:02 07/29/18 105/45 08:15 (65) 07/29/18 99.1 Mechanical 08:00 Ventilator 07/26/18 16.0 04:55 Intake and Output 07/28/18 07/28/18 07/29/18 1515:00 23:00 07:00 IntakeIntake Total 911.874 ml 769.361 ml 1734.556 ml OutputOutput Total 280 ml 510 ml 215 ml BalanceBalance 631.874 ml 259.361 ml 1519.556 ml Exam Gen: Elderly woman intubated, sedated. HEENT: Moist mucous membranes, ET tube in place. Neck: No lymphadenopathy Chest: L chest subclavian line in place Card:regular rate and rhythm, no murmurs Pulm: Mechanical breath sounds with crackles throughout. Abd: Soft, nondistended. Ext: No cyanosis/clubbing/edema. Medications Medications Current Medications Dextrose/Sodium Chloride 1,000 ml @ 100 mls/hr Q10H IV Last administered on 07/28/18 02:00; Admin Dose 100 MLS/HR; Start 07/26/18 at 01:20; Status Hold Ondansetron HCl (Zofran Inj) 4 mg Q6H PRN IV NAUSEA AND/OR VOMITING; Start 07/26/18 at 01:30 Acetaminophen (Tylenol Liquid) 650 mg Q6H PRN PO PAIN LEVEL 1-3 OR FEVER Last administered on 07/28/18 15:57; Admin Dose 650 MG; Start 07/26/18 at 01:30 Enoxaparin Sodium (Lovenox) 40 mg DAILY SC Last administered on 07/29/18 09:00; Admin Dose 40 MG; Start 07/26/18 at 09:00 Propofol 100 ml @ 1.937 mls/ hr PER PROTOCOL IV Last administered on 07/29/18 04:30; Admin Dose 9.683 MLS/HR; Start 07/26/18 at 01:30 Norepinephrine 250 ml @ 1.875 mls/ hr PER PROTOCOL IV Last administered on 07/29/18 04:42; Admin Dose 15 MLS/HR; Start 07/26/18 at 01:30 Cefepime HCl 50 ml @ 100 mls/hr Q12 IVPB Last administered on 07/29/18 08:43; Admin Dose 100 MLS/HR; Start 07/26/18 at 09:00 Azithromycin 250 ml @ 250 mls/hr DAILY IVPB Last administered on 07/29/18 09:27; Admin Dose 250 MLS/HR; Start 07/26/18 at 09:00 Fenofibrate (Tricor) 145 mg DAILY PO Last administered on 07/29/18 08:43; Admin Dose 145 MG; Start 07/26/18 at 09:00 Methimazole (Tapazole) 5 mg BID PO Last administered on 07/29/18 08:43; Admin Dose 5 MG; Start 07/26/18 at 09:00 Famotidine (Pepcid) 20 mg DAILY GTB Last administered on 07/29/18 08:43; Admin Dose 20 MG; Start 07/27/18 at 09:00 Lorazepam (Ativan) 1 mg Q2H PRN GTB ANXIETY; Start 07/26/18 at 12:04 Ipratropium [place] (Atrovent Hfa) 4 puff Q6H RESP THERAPY INH Last administered on 07/29/18 07:23; Admin Dose 4 PUFF; Start 07/28/18 at 14:00 Albuterol (Ventolin Hfa) 4 puff Q6H RESP THERAPY INH Last administered on 07/20 07:24; Admin Dose 4 PUFF; Start 07/28/18 at 14:00 Vasopressin 60 unit/Dextrose 60 ml @ 1.2 mls/hr Q12H IV Last administered on 07/28/18 16:58; Admin Dose 1.2 MLS/HR; Start 07/28/18 at 16:30 Potassium Phosphate 30 mm/ Sodium Chloride 260 ml @ 65 mls/hr ONCE ONCE IVPB Last administered on 07/29/18 11:27; Admin Dose 65 MLS/HR; Start 07/29/18 at 10:30; Stop 07/29/18 at 14:29 YESSY LANDEROS MD Jul 29, 2018 12:13
--- NOTE | 2018-07-29 12:57 | CONS ---
Date/Time of Note Date/Time of Note DATE: 07/29/18 TIME: 12:52 Assessment/Plan Assessment/Plan Hospital Course IMPRESSION: 1. Tachyarrhythmia concerning for possible accelerated junctional rhythm, likely consistent with ongoing sinus tachycardia with intermittently aberrantly conducted beats possibly rate related.- Most recently S tach/SR 2. Bundle branch block, intermittent, in correction of rate related. I doubt ischemic etiology of the bundle. 3. Positive troponin in the setting of sepsis and hypotension. 4. Hypotension, on pressor support.-remains on levo 5. Anemia. 6. Respiratory failure, status post intubation. 7. Abnormal echocardiogram, assess for acute coronary syndrome with altered mental state. 8. Positive troponin-minimal and downtrending Recc: -ICU -serial ecg's -F/U cx data and continue broad spectrum abx's -Continue tricor -Continue tapazole -Follow acid/base status clsoely -wean levo as tolerated Result Diagram: 07/29/18 0415 07/29/18 0415 Results 24hrs Laboratory Tests Test 07/28/18 16:00 07/29/18 04:15 07/29/18 07:00 Blood Gas Specimen Blood arterial Blood arterial Source Arterial Blood Date 07/28/2018 4:00:23 PM 07/29/2018 7:11:54 AM Drawn Arterial Blood pH 7.342 L 7.366 (Temp corrected) Arterial Blood pCO2 42.1 41.9 (Temp correct) Arterial Blood pO2 52.4 *L 56.6 L (Temp corrected) Arterial Blood HCO3 22.3 23.5 Arterial Blood Base -3.3 L -1.8 Excess Arterial Blood 88.4 L 90.4 L Oxygen Saturation Pio Test ACCEPTAB ACCEPTAB Arterial Blood Gas LB Left Radial Puncture Site Arterial 0.4 0.2 Blood Carboxyhemoglobi n Arterial Blood 0.1 0.3 Methemoglobin Blood Gas A-a O2 401.4 H 433.6 H Differential Oxyhemoglobin Percent 88.0 L 89.9 L Blood Gas Temperature 37.0 37.0 Blood Gas Respiration 20.0 20.0 Rate Blood Gas Actual 20 27 Respiration Rate Blood Gas Modality VENT - AC VENT - AC FiO2 70.0 75.0 Blood Gas Tidal Volume 500.0 500.0 Blood Gas Low PEEP 8.0 10.0 Setting Blood Gas Critical S KIMBERLYN RN Value Read Back Blood Gas Notified DT TM Whom Blood Gas Notified 07/28/2018 4:20:28 PM 07/29/2018 7:26:26 AM Time White Blood Count 21.7 H Red Blood Count 2.79 L Hemoglobin 8.8 L Hematocrit 25.8 L Mean Corpuscular 92.5 Volume Mean Corpuscular 31.5 Hemoglobin Mean Corpuscular 34.1 Hemoglobin Concent Red Cell Distribution 14.1 Width Platelet Count 324 Mean Platelet Volume 9.9 Immature Granulocytes 4.600 H % Neutrophils % Segmented Neutrophils 67 % (Manual) Band Neutrophils % 23 H (Manual) Lymphocytes % Lymphocytes % (Manual) 5 L Monocytes % Monocytes % (Manual) 3 Eosinophils % Eosinophils % (Manual) 1 Basophils % Metamyelocytes % 1 H (manual) Nucleated Red Blood 0.1 H Cells % Immature Granulocytes 1.000 H # Neutrophils # Neutrophils # (Manual) 15.6 H Band Neutrophils # 4.9 H Lymphocytes (Manual) 1.0 Lymphocytes # Monocytes # Monocytes # (Manual) 0.6 Eosinophils # Basophils # Metamyelocytes # 0.2 H Nucleated Red Blood Cells # Toxic Granulation 1+ Platelet Estimate NORMAL Anisocytosis 2+ Macrocytosis 2+ Sodium Level 133 L Potassium Level 3.9 Chloride Level 102 Carbon Dioxide Level 25 Anion Gap 6 Blood Urea Nitrogen 33 H Creatinine 0.57 Est Glomerular Filtrat Rate mL/min Glucose Level 148 Calcium Level 9.1 Phosphorus Level 1.5 L Magnesium Level 2.3 Consultation Date/Type/Reason Admit Date/Time Jul 26, 2018 at 01:38 Initial Consult Date 07/26/18 Type of Consult cardiology Reason for Consultation Hypotension Requesting Provider: YESSY LANDEROS MD Exam/Review of Systems Vital Signs Vitals Vital Signs Date Temp Pulse Resp B/P (MAP) Pulse Ox O2 O2 Flow FiO2 Time Delivery Rate 07/29/18 104 27 95 75 09:02 07/29/18 105/45 08:15 (65) 07/29/18 99.1 Mechanical 08:00 Ventilator 07/26/18 16.0 04:55 Intake and Output 07/28/18 07/28/18 07/29/18 1414:59 22:59 06:59 IntakeIntake Total 989.566 ml 779.411 ml 1785.879 ml OutputOutput Total 280 ml 510 ml 250 ml BalanceBalance 709.566 ml 269.411 ml 1535.879 ml Exam Review of Systems: CONSTITUTIONAL: No fevers, chills. PULMONARY: intubated CARDIOVASCULAR: No chest pain/palpitations GASTROINTESTINAL: No nausea/vomiting. GENITOURINARY: No hematuria/dysuria. MUSCULOSKELETAL: No myagias/arthalgias. PSYCHIATRIC: The patient denies depression. NEUROLOGIC: No weakness Psych: no complaints Head: normocephalic ENMT: mucosa pink and moist Neck: supple, jvd (9 cm water) Respiratory: diminished breath sounds Cardiovascular: regular rate and rhythm Gastrointestinal: soft, non-tender Musculoskeletal: muscle tone (generalized weakness) Extremities: edema (trace/B) Neurological: other (sedated) Medications Medications Current Medications Dextrose/Sodium Chloride 1,000 ml @ 100 mls/hr Q10H IV Last administered on 07/28/18 02:00; Admin Dose 100 MLS/HR; Start 07/26/18 at 01:20; Status Hold Ondansetron HCl (Zofran Inj) 4 mg Q6H PRN IV NAUSEA AND/OR VOMITING; Start 07/26/18 at 01:30 Acetaminophen (Tylenol Liquid) 650 mg Q6H PRN PO PAIN LEVEL 1-3 OR FEVER Last administered on 07/28/18 15:57; Admin Dose 650 MG; Start 07/26/18 at 01:30 Enoxaparin Sodium (Lovenox) 40 mg DAILY SC Last administered on 07/29/18 09:00; Admin Dose 40 MG; Start 07/26/18 at 09:00 Propofol 100 ml @ 1.937 mls/ hr PER PROTOCOL IV Last administered on 07/29/18 04:30; Admin Dose 9.683 MLS/HR; Start 07/26/18 at 01:30 Norepinephrine 250 ml @ 1.875 mls/ hr PER PROTOCOL IV Last administered on 07/29/18 04:42; Admin Dose 15 MLS/HR; Start 07/26/18 at 01:30 Cefepime HCl 50 ml @ 100 mls/hr Q12 IVPB Last administered on 07/29/18 08:43; Admin Dose 100 MLS/HR; Start 07/26/18 at 09:00 Azithromycin 250 ml @ 250 mls/hr DAILY IVPB Last administered on 07/29/18 09:27; Admin Dose 250 MLS/HR; Start 07/26/18 at 09:00 Fenofibrate (Tricor) 145 mg DAILY PO Last administered on 07/29/18 08:43; Admin Dose 145 MG; Start 07/26/18 at 09:00 Methimazole (Tapazole) 5 mg BID PO Last administered on 07/29/18 08:43; Admin Dose 5 MG; Start 07/26/18 at 09:00 Famotidine (Pepcid) 20 mg DAILY GTB Last administered on 07/29/18 08:43; Admin Dose 20 MG; Start 07/27/18 at 09:00 Lorazepam (Ativan) 1 mg Q2H PRN GTB ANXIETY; Start 07/26/18 at 12:04 Ipratropium [place] (Atrovent Hfa) 4 puff Q6H RESP THERAPY INH Last administered on 07/29/18 07:23; Admin Dose 4 PUFF; Start 07/28/18 at 14:00 Albuterol (Ventolin Hfa) 4 puff Q6H RESP THERAPY INH Last administered on 07/29/18 07:24; Admin Dose 4 PUFF; Start 07/28/18 at 14:00 Vasopressin 60 unit/Dextrose 60 ml @ 1.2 mls/hr Q12H IV Last administered on 07/28/18 16:58; Admin Dose 1.2 MLS/HR; Start 07/28/18 at 16:30 Potassium Phosphate 30 mm/ Sodium Chloride 260 ml @ 65 mls/hr ONCE ONCE IVPB Last administered on 07/29/18 11:27; Admin Dose 65 MLS/HR; Start 07/29/18 at 10:30; Stop 07/29/18 at 14:29 YESSY KELLY Jul 29, 2018 12:57
[2018-07-29] MEDS: ACETAMINOPHEN 650MG/20.3ML CUP PO PRN (18:17)
[2018-07-29] MEDS: BALSAM PERU/CASTOR OIL 60 GM TUBE TOP SCH (20:37)
[2018-07-30] VITALS (101 sets, daily range): BP systolic 73–123; BP diastolic 35–67; PULSE 89–117; RESP 12–34
[2018-07-30] MEDS: ALBUTEROL HFA 8 GM INHALER INH SCH ×4 (02:00→20:38)
[2018-07-30] MEDS: IPRATROPIUM (HFA) 12.9 GM INHALER INH SCH ×4 (02:00→20:38)
[2018-07-30] MEDS: PROPOFOL 100 ML IV SCH ×2 (04:00→17:29)
[2018-07-30] MEDS: VASOPRESSIN 60 UNIT in DEXTROSE 5% 57 ML IV SCH ×2 (04:30→15:00)
[2018-07-30] MEDS: CEFEPIME 1GM/50 ML (PMX) 50 ML IVPB SCH ×2 (09:11→20:41)
[2018-07-30] MEDS: FAMOTIDINE 20 MG TAB GTB SCH (09:12)
[2018-07-30] MEDS: METHIMAZOLE 5 MG TAB PO SCH ×2 (09:12→20:42)
[2018-07-30] MEDS: FENOFIBRATE 145 MG TAB PO SCH (09:12)
--- NOTE | 2018-07-30 09:14 | CONS ---
Date/Time of Note Date/Time of Note DATE: 07/30/18 TIME: 09:11 Assessment/Plan Assessment/Plan Assessment/Plan Chest x-ray was reviewed from today which is showing extensive bilateral pneumonia. Ventilator setting; AC of 20, tidal volume 500, PEEP of 10, 75% FiO2. Patient is currently on propofol at 15 mics per kilogram per minute, Levophed 4 mics per minute. Assessment and recommendations; 1. Patient admitted with severe bilateral pneumonia with persistent hypoxemia and ARDS. 2. History of hyperthyroidism. 3. UTI. 4. Anemia. Increase FiO2. Add vancomycin. Continue other supportive measures. Prognosis is poor. 35 minutes of critical care time was spent evaluating the patient. Result Diagram: 07/30/18 0400 07/30/18 0400 Results 24hrs Laboratory Tests Test 07/30/18 04:00 07/30/18 07:00 White Blood Count 19.2 H Red Blood Count 2.57 L Hemoglobin 8.1 L Hematocrit 23.3 L Mean Corpuscular Volume 90.7 Mean Corpuscular Hemoglobin 31.5 Mean Corpuscular Hemoglobin Concent 34.8 Red Cell Distribution Width 14.3 Platelet Count 311 Mean Platelet Volume 10.0 Immature Granulocytes % 9.100 H Neutrophils % Segmented Neutrophils % (Manual) 75 Band Neutrophils % (Manual) 13 H Lymphocytes % Lymphocytes % (Manual) 4 L Monocytes % Monocytes % (Manual) 3 Eosinophils % Basophils % Metamyelocytes % (manual) 1 H Myelocytes % (Manual) 4 H Nucleated Red Blood Cells % 0.0 Immature Granulocytes # 1.750 H Neutrophils # Neutrophils # (Manual) 14.9 H Band Neutrophils # 2.4 H Lymphocytes (Manual) 0.7 L Lymphocytes # Monocytes # Monocytes # (Manual) 0.5 Eosinophils # Basophils # Metamyelocytes # 0.1 H Myelocytes # 0.7 H Nucleated Red Blood Cells # Toxic Granulation 2+ Platelet Estimate NORMAL Polychromasia 1+ Poikilocytosis 1+ Anisocytosis 3+ Macrocytosis 3+ Sodium Level 137 Potassium Level 4.2 Chloride Level 105 Carbon Dioxide Level 24 Anion Gap 8 Blood Urea Nitrogen 42 H Creatinine 0.55 Est Glomerular Filtrat Rate mL/min Glucose Level 130 Calcium Level 9.0 Phosphorus Level 2.9 Magnesium Level 2.3 Blood Gas Specimen Source Blood arterial Arterial Blood Date Drawn 07/30/2018 7:05:10 AM Arterial Blood pH (Temp corrected) 7.386 Arterial Blood pCO2 (Temp correct) 40.5 Arterial Blood pO2 (Temp corrected) 62.3 L Arterial Blood HCO3 23.7 Arterial Blood Base Excess -1.2 Arterial Blood Oxygen Saturation 91.2 L Pio Test ACCEPTAB Arterial Blood Gas Puncture Site Left Radial Arterial Blood Carboxyhemoglobin 0.3 Arterial Blood Methemoglobin 0.2 Blood Gas A-a O2 Differential 429.4 H Oxyhemoglobin Percent 90.7 L Blood Gas Temperature 37.0 Blood Gas Respiration Rate 20.0 Blood Gas Actual Respiration Rate 26 Blood Gas Modality VENT - AC FiO2 75.0 Blood Gas Tidal Volume 500.0 Blood Gas Low PEEP Setting 10.0 Blood Gas Notified Whom TM Blood Gas Notified Time 07/30/2018 7:16:47 AM Consultation Date/Type/Reason Admit Date/Time Jul 26, 2018 at 01:38 Initial Consult Date Type of Consult Pulmonary/critical care Requesting Provider: YESSY LANDEROS MD 24 HR Interval Summary Free Text/Dictation Patient's condition is critical. Patient exhibiting persistent severe hypoxemia. Remains hypotensive on Levophed. General exam; elderly female, orally intubated, sedated, currently in no distress. Exam/Review of Systems Vital Signs Vitals Vital Signs Date Temp Pulse Resp B/P (MAP) Pulse Ox O2 O2 Flow FiO2 Time Delivery Rate 07/30/18 94 27 88/47 (61) 93 Mechanical 06:00 Ventilator 07/30/18 75 04:49 07/30/18 98.1 04:00 Intake and Output 07/29/18 07/29/18 07/30/18 1414:59 22:59 06:59 IntakeIntake Total 1186.07 ml 811.525 ml 720.030 ml OutputOutput Total 200 ml 395 ml 340 ml BalanceBalance 986.07 ml 416.525 ml 380.030 ml Exam H EENT exam; supple neck, no JVD. No lymphadenopathy. Midline trachea. No thyromegaly. Orally intubated. Patient is edentulous. Chest exam; bilateral crackles. S1-S2 audible, no murmurs. Regular rhythm. Abdomen exam; soft, scaphoid. No organomegaly. Bowel sounds audible. No organomegaly. Extremity exam; trace peripheral edema. MEDICAL COLLECTIONS exam; patient is sedated. Medications Medications Current Medications Dextrose/Sodium Chloride 1,000 ml @ 100 mls/hr Q10H IV Last administered on 07/28/18 02:00; Admin Dose 100 MLS/HR; Start 07/26/18 at 01:20; Status Hold Ondansetron HCl (Zofran Inj) 4 mg Q6H PRN IV NAUSEA AND/OR VOMITING; Start 07/26/18 at 01:30 Acetaminophen (Tylenol Liquid) 650 mg Q6H PRN PO PAIN LEVEL 1-3 OR FEVER Last administered on 07/29/18 18:17; Admin Dose 650 MG; Start 07/26/18 at 01:30 Enoxaparin Sodium (Lovenox) 40 mg DAILY SC Last administered on 07/29/18 09:00; Admin Dose 40 MG; Start 07/26/18 at 09:00 Propofol 100 ml @ 1.937 mls/ hr PER PROTOCOL IV Last administered on 07/30/18 04:00; Admin Dose 5.81 MLS/HR; Start 07/26/18 at 01:30 Norepinephrine 250 ml @ 1.875 mls/ hr PER PROTOCOL IV Last administered on 07/29/18 20:13; Admin Dose 15 MLS/HR; Start 07/26/18 at 01:30 Cefepime HCl 50 ml @ 100 mls/hr Q12 IVPB Last administered on 07/29/18 20:37; Admin Dose 100 MLS/HR; Start 07/26/18 at 09:00 Azithromycin 250 ml @ 250 mls/hr DAILY IVPB Last administered on 07/29/18 09:27; Admin Dose 250 MLS/HR; Start 07/26/18 at 09:00 Fenofibrate (Tricor) 145 mg DAILY PO Last administered on 07/29/18 08:43; Admin Dose 145 MG; Start 07/26/18 at 09:00 Methimazole (Tapazole) 5 mg BID PO Last administered on 07/29/18 20:37; Admin Dose 5 MG; Start 07/26/18 at 09:00 Famotidine (Pepcid) 20 mg DAILY GTB Last administered on 07/29/18 08:43; Admin Dose 20 MG; Start 07/27/18 at 09:00 Lorazepam (Ativan) 1 mg Q2H PRN GTB ANXIETY; Start 07/26/18 at 12:04 Ipratropium [place] (Atrovent Hfa) 4 puff Q6H RESP THERAPY INH Last administered on 07/30/18at 08:41; Admin Dose 4 PUFF; Start 07/28/18 at 14:00 Albuterol (Ventolin Hfa) 4 puff Q6H RESP THERAPY INH Last administered on 07/30/18at 08:41; Admin Dose 4 PUFF; Start 07/28/18 at 14:00 Vasopressin 60 unit/Dextrose 60 ml @ 1.2 mls/hr Q12H IV Last administered on 07/28/18at 16:58; Admin Dose 1.2 MLS/HR; Start 07/28/18 at 16:30 Furosemide (Lasix) 40 mg ONCE ONCE IV ; Start 07/30/18 at 09:30; Stop 07/30/18 at 09:31 MARIE PRADO Jul 30, 2018 09:14
[2018-07-30] MEDS: ENOXAPARIN 40 MG/0.4 ML SYG SC SCH (09:16)
[2018-07-30] MEDS: AZITHROMYCIN 500MG/NS (PMX) 250 ML IVPB SCH (09:19)
[2018-07-30] MEDS: BALSAM PERU/CASTOR OIL 60 GM TUBE TOP SCH ×2 (09:20→20:42)
[2018-07-30] MEDS ORDERED: FUROSEMIDE 40 MG INJ IV ONE (09:30)
[2018-07-30] MEDS ORDERED: VANCOMYCIN IV PER PHARMACY XX SCH (09:30)
--- NOTE | 2018-07-30 12:01 | PN ---
Date/Time of Note Date/Time of Note DATE: 07/30/18 TIME: 11:59 Assessment/Plan VTE Prophylaxis Risk score (from Ns)>0 risk: 10 SCD applied (from Ns): Yes Pharmacological prophylaxis: LMWH Lines/Catheters IV Catheter Type (from [facility]): Saline Lock [place] line still needed: Yes Urinary Cath still in place: Yes Reason Cath still needed: other (indicate) (intubated) Assessment/Plan Assessment/Plan 87 yo woman admitted for pneumonia with severe sepsis and acute respiratory failure requiring mechanical ventilation. # Hypercapnic and hypoxic respiratory failure: - Intubated 07/25. Likely secondary to pneumonia and possibly COPD exacerbation as well given history - Continue vent support. Pulmonary following - IV antibiotics - Resp culture growing H flu. - Continue tube feeds. - Blood cultures negative. - Spot IV diuresis as needed. # Positive troponin: Likely demand ischemia from above - trops slowly trending down - Dr Perrin following - Only prophylactic dose lovenox for now. - 2D echo # History of hypertension: Currently requiring pressors # Hyperthyroidism: TSH currently at safe level. Continue methimazole # Dyslipidemia: Continue fenofibrate Code status: Do not resuscitate, do not re-intubate. Result Diagram: 07/30/18 0400 07/30/18 0400 Results 24hrs Laboratory Tests Test 07/30/18 04:00 07/30/18 07:00 White Blood Count 19.2 H Red Blood Count 2.57 L Hemoglobin 8.1 L Hematocrit 23.3 L Mean Corpuscular Volume 90.7 Mean Corpuscular Hemoglobin 31.5 Mean Corpuscular Hemoglobin Concent 34.8 Red Cell Distribution Width 14.3 Platelet Count 311 Mean Platelet Volume 10.0 Immature Granulocytes % 9.100 H Neutrophils % Segmented Neutrophils % (Manual) 75 Band Neutrophils % (Manual) 13 H Lymphocytes % Lymphocytes % (Manual) 4 L Monocytes % Monocytes % (Manual) 3 Eosinophils % Basophils % Metamyelocytes % (manual) 1 H Myelocytes % (Manual) 4 H Nucleated Red Blood Cells % 0.0 Immature Granulocytes # 1.750 H Neutrophils # Neutrophils # (Manual) 14.9 H Band Neutrophils # 2.4 H Lymphocytes (Manual) 0.7 L Lymphocytes # Monocytes # Monocytes # (Manual) 0.5 Eosinophils # Basophils # Metamyelocytes # 0.1 H Myelocytes # 0.7 H Nucleated Red Blood Cells # Toxic Granulation 2+ Platelet Estimate NORMAL Polychromasia 1+ Poikilocytosis 1+ Anisocytosis 3+ Macrocytosis 3+ Sodium Level 137 Potassium Level 4.2 Chloride Level 105 Carbon Dioxide Level 24 Anion Gap 8 Blood Urea Nitrogen 42 H Creatinine 0.55 Est Glomerular Filtrat Rate mL/min Glucose Level 130 Calcium Level 9.0 Phosphorus Level 2.9 Magnesium Level 2.3 Blood Gas Specimen Source Blood arterial Arterial Blood Date Drawn 07/30/2018 7:05:10 AM Arterial Blood pH (Temp corrected) 7.386 Arterial Blood pCO2 (Temp correct) 40.5 Arterial Blood pO2 (Temp corrected) 62.3 L Arterial Blood HCO3 23.7 Arterial Blood Base Excess -1.2 Arterial Blood Oxygen Saturation 91.2 L Pio Test ACCEPTAB Arterial Blood Gas Puncture Site Left Radial Arterial Blood Carboxyhemoglobin 0.3 Arterial Blood Methemoglobin 0.2 Blood Gas A-a O2 Differential 429.4 H Oxyhemoglobin Percent 90.7 L Blood Gas Temperature 37.0 Blood Gas Respiration Rate 20.0 Blood Gas Actual Respiration Rate 26 Blood Gas Modality VENT - AC FiO2 75.0 Blood Gas Tidal Volume 500.0 Blood Gas Low PEEP Setting 10.0 Blood Gas Notified Whom TM Blood Gas Notified Time 07/30/2018 7:16:47 AM Subjective 24 Hr Interval Summary Free Text/Dictation Remains intubated and sedated. Pressor requirements decreasing but today with very high FiO2 and PEEP Exam/Review of Systems Vital Signs Vitals Vital Signs Date Temp Pulse Resp B/P (MAP) Pulse Ox O2 O2 Flow FiO2 Time Delivery Rate 07/30/18 113 27 102/48 93 Mechanical 10:30 (66) Ventilator 07/30/18 99.9 08:00 07/30/18 75 08:00 Intake and Output 07/29/18 07/29/18 07/30/18 1515:00 23:00 07:00 IntakeIntake Total 1251.07 ml 742.775 ml 712.780 ml OutputOutput Total 200 ml 425 ml 360 ml BalanceBalance 1051.07 ml 317.775 ml 352.780 ml Exam Gen: Elderly woman intubated, sedated. HEENT: Moist mucous membranes, ET tube in place. Neck: No lymphadenopathy Chest: L chest subclavian line in place Card:regular rate and rhythm, no murmurs Pulm: Mechanical breath sounds, coarse, with crackles throughout. Abd: Soft, nondistended. Ext: No cyanosis/clubbing/edema. Medications Medications Current Medications Dextrose/Sodium Chloride 1,000 ml @ 100 mls/hr Q10H IV Last administered on 07/28/18 02:00; Admin Dose 100 MLS/HR; Start 07/26/18 at 01:20; Status Hold Ondansetron HCl (Zofran Inj) 4 mg Q6H PRN IV NAUSEA AND/OR VOMITING; Start 07/26/18 at 01:30 Acetaminophen (Tylenol Liquid) 650 mg Q6H PRN PO PAIN LEVEL 1-3 OR FEVER Last administered on 07/29/18 18:17; Admin Dose 650 MG; Start 07/26/18 at 01:30 Enoxaparin Sodium (Lovenox) 40 mg DAILY SC Last administered on 07/30/18 09:16; Admin Dose 40 MG; Start 07/26/18 at 09:00 Propofol 100 ml @ 1.937 mls/ hr PER PROTOCOL IV Last administered on 07/30/18 04:00; Admin Dose 5.81 MLS/HR; Start 07/26/18 at 01:30 Norepinephrine 250 ml @ 1.875 mls/ hr PER PROTOCOL IV Last administered on 07/29/18 20:13; Admin Dose 15 MLS/HR; Start 07/26/18 at 01:30 Cefepime HCl 50 ml @ 100 mls/hr Q12 IVPB Last administered on 07/30/18 09:11; Admin Dose 100 MLS/HR; Start 07/26/18 at 09:00 Azithromycin 250 ml @ 250 mls/hr DAILY IVPB Last administered on 07/30/18 09:19; Admin Dose 250 MLS/HR; Start 07/26/18 at 09:00 Fenofibrate (Tricor) 145 mg DAILY PO Last administered on 07/30/18 09:12; Admin Dose 145 MG; Start 07/26/18 at 09:00 Methimazole (Tapazole) 5 mg BID PO Last administered on 07/30/18 09:12; Admin Dose 5 MG; Start 07/26/18 at 09:00 Famotidine (Pepcid) 20 mg DAILY GTB Last administered on 1/11/19at 09:12; Admin Dose 20 MG; Start 07/27/18 at 09:00 Lorazepam (Ativan) 1 mg Q2H PRN GTB ANXIETY; Start 07/26/18 at 12:04 Ipratropium [place] (Atrovent Hfa) 4 puff Q6H RESP THERAPY INH Last administered on 07/30/18at 08:41; Admin Dose 4 PUFF; Start 07/28/18 at 14:00 Albuterol (Ventolin Hfa) 4 puff Q6H RESP THERAPY INH Last administered on 07/30/18at 08:41; Admin Dose 4 PUFF; Start 07/28/18 at 14:00 Vasopressin 60 unit/Dextrose 60 ml @ 1.2 mls/hr Q12H IV Last administered on 07/28/18at 16:58; Admin Dose 1.2 MLS/HR; Start 07/28/18 at 16:30 Vancomycin HCl (Vanco Iv Per Pharmacy) VANCOMYCIN PER PHARMACY PER PROTOCOL XX ; Start 07/30/18 at 09:30 Vancomycin HCl 1.25 gm/Sodium Chloride 250 ml @ 83.333 mls/ hr 1300 IVPB ; Start 07/30/18 at 13:00; Stop 07/30/18 at 15:59 Vancomycin HCl 1.25 gm/Sodium Chloride 250 ml @ 83.333 mls/ hr Q24H IVPB ; Start 07/31/18 at 13:00 YESSY LANDEROS MD Jul 30, 2018 12:01
[2018-07-30] MEDS: ACETAMINOPHEN 650MG/20.3ML CUP PO PRN ×2 (12:25→20:32)
[2018-07-30] MEDS ORDERED: VANCOMYCIN HCL 1.25 GM in SOD CHLORIDE 0.9% 250 ML IVPB SCH (13:00)
--- NOTE | 2018-07-30 15:07 | CONS ---
Date/Time of Note Date/Time of Note DATE: 07/30/18 TIME: 15:01 Assessment/Plan Assessment/Plan Assessment/Plan IMPRESSION: 1. Tachyarrhythmia concerning for possible accelerated junctional rhythm, likely consistent with ongoing sinus tachycardia with intermittently aberrantly conducted beats possibly rate related. 2. Bundle branch block, intermittent, in correction of rate related. I doubt ischemic etiology of the bundle. 3. Positive troponin in the setting of sepsis and hypotension. 4. Hypotension, on pressor support.-remains on levo 5. Anemia. 6. Respiratory failure, status post intubation. 7. Abnormal echocardiogram, assess for acute coronary syndrome with altered mental state. 8. Positive troponin-minimal and downtrending 9. Azotemia- per PMD 10. Leucocytosis -per PMD Recc: -ICU Continue vasopressors Result Diagram: Result Diagram: 07/30/18 0400 07/30/18 0400 Results 24hrs Laboratory Tests Test 07/30/18 04:00 07/30/18 07:00 White Blood Count 19.2 H Red Blood Count 2.57 L Hemoglobin 8.1 L Hematocrit 23.3 L Mean Corpuscular Volume 90.7 Mean Corpuscular Hemoglobin 31.5 Mean Corpuscular Hemoglobin Concent 34.8 Red Cell Distribution Width 14.3 Platelet Count 311 Mean Platelet Volume 10.0 Immature Granulocytes % 9.100 H Neutrophils % Segmented Neutrophils % (Manual) 75 Band Neutrophils % (Manual) 13 H Lymphocytes % Lymphocytes % (Manual) 4 L Monocytes % Monocytes % (Manual) 3 Eosinophils % Basophils % Metamyelocytes % (manual) 1 H Myelocytes % (Manual) 4 H Nucleated Red Blood Cells % 0.0 Immature Granulocytes # 1.750 H Neutrophils # Neutrophils # (Manual) 14.9 H Band Neutrophils # 2.4 H Lymphocytes (Manual) 0.7 L Lymphocytes # Monocytes # Monocytes # (Manual) 0.5 Eosinophils # Basophils # Metamyelocytes # 0.1 H Myelocytes # 0.7 H Nucleated Red Blood Cells # Toxic Granulation 2+ Platelet Estimate NORMAL Polychromasia 1+ Poikilocytosis 1+ Anisocytosis 3+ Macrocytosis 3+ Sodium Level 137 Potassium Level 4.2 Chloride Level 105 Carbon Dioxide Level 24 Anion Gap 8 Blood Urea Nitrogen 42 H Creatinine 0.55 Est Glomerular Filtrat Rate mL/min Glucose Level 130 Calcium Level 9.0 Phosphorus Level 2.9 Magnesium Level 2.3 Blood Gas Specimen Source Blood arterial Arterial Blood Date Drawn 07/30/2018 7:05:10 AM Arterial Blood pH (Temp corrected) 7.386 Arterial Blood pCO2 (Temp correct) 40.5 Arterial Blood pO2 (Temp corrected) 62.3 L Arterial Blood HCO3 23.7 Arterial Blood Base Excess -1.2 Arterial Blood Oxygen Saturation 91.2 L Pio Test ACCEPTAB Arterial Blood Gas Puncture Site Left Radial Arterial Blood Carboxyhemoglobin 0.3 Arterial Blood Methemoglobin 0.2 Blood Gas A-a O2 Differential 429.4 H Oxyhemoglobin Percent 90.7 L Blood Gas Temperature 37.0 Blood Gas Respiration Rate 20.0 Blood Gas Actual Respiration Rate 26 Blood Gas Modality VENT - AC FiO2 75.0 Blood Gas Tidal Volume 500.0 Blood Gas Low PEEP Setting 10.0 Blood Gas Notified Whom TM Blood Gas Notified Time 07/30/2018 7:16:47 AM Consultation Date/Type/Reason Admit Date/Time Jul 26, 2018 at 01:38 Initial Consult Date Requesting Provider: YESSY LANDEROS MD 24 HR Interval Summary Free Text/Dictation ROS:Pt non communicating as pt is intubated and sedated Exam/Review of Systems Vital Signs Vitals Vital Signs Date Temp Pulse Resp B/P (MAP) Pulse Ox O2 O2 Flow FiO2 Time Delivery Rate 07/30/18 101.2 12:25 07/30/18 113 12:00 07/30/18 27 102/48 93 [place] 10:30 (66) l Ventilato r 07/30/18 75 08:00 Intake and Output 07/29/18 07/29/18 07/30/18 1515:00 23:00 07:00 IntakeIntake Total 1251.07 ml 742.775 ml 712.780 ml OutputOutput Total 200 ml 425 ml 360 ml BalanceBalance 1051.07 ml 317.775 ml 352.780 ml Exam General: WN/WD HEENT: Unicetric/atraumatic/ no assymetry NECK: JVD not elevated, no thyromegaly, carotids revealed normal upstrokes Lymph: no lymphadenopathy HEART: regular with no S3, I/ systolic murmur at apex LUNGS: clear ABD: soft, NT, ND, +BS, no organomegaly Neuro: no deficit SKIN: no leisons EXT: no edema Medications Medications Current Medications Dextrose/Sodium Chloride 1,000 ml @ 100 mls/hr Q10H IV Last administered on 07/28/18 02:00; Admin Dose 100 MLS/HR; Start 07/26/18 at 01:20; Status Hold Ondansetron HCl (Zofran Inj) 4 mg Q6H PRN IV NAUSEA AND/OR VOMITING; Start 07/26/18 at 01:30 Acetaminophen (Tylenol Liquid) 650 mg Q6H PRN PO PAIN LEVEL 1-3 OR FEVER Last administered on 07/30/18 12:25; Admin Dose 650 MG; Start 07/26/18 at 01:30 Enoxaparin Sodium (Lovenox) 40 mg DAILY SC Last administered on 07/30/18 09:16; Admin Dose 40 MG; Start 07/26/18 at 09:00 Propofol 100 ml @ 1.937 mls/ hr PER PROTOCOL IV Last administered on 07/30/18 04:00; Admin Dose 5.81 MLS/HR; Start 07/26/18 at 01:30 Norepinephrine 250 ml @ 1.875 mls/ hr PER PROTOCOL IV Last administered on 07/29/18 20:13; Admin Dose 15 MLS/HR; Start 07/26/18 at 01:30 Cefepime HCl 50 ml @ 100 mls/hr Q12 IVPB Last administered on 07/30/18 09:11; Admin Dose 100 MLS/HR; Start 07/26/18 at 09:00 Azithromycin 250 ml @ 250 mls/hr DAILY IVPB Last administered on 07/30/18 09:19; Admin Dose 250 MLS/HR; Start 07/26/18 at 09:00 Fenofibrate (Tricor) 145 mg DAILY PO Last administered on 07/30/18 09:12; Admin Dose 145 MG; Start 07/26/18 at 09:00 Methimazole (Tapazole) 5 mg BID PO Last administered on 07/30/18 09:12; Admin Dose 5 MG; Start 07/26/18 at 09:00 Famotidine (Pepcid) 20 mg DAILY GTB Last administered on 07/30/18 09:12; Admin Dose 20 MG; Start 07/27/18 at 09:00 Lorazepam (Ativan) 1 mg Q2H PRN GTB ANXIETY; Start 07/26/18 at 12:04 Ipratropium [place] (Atrovent Hfa) 4 puff Q6H RESP THERAPY INH Last administered on 07/30/18at 13:10; Admin Dose 4 PUFF; Start 07/28/18 at 14:00 Albuterol (Ventolin Hfa) 4 puff Q6H RESP THERAPY INH Last administered on 07/30/18at 13:10; Admin Dose 4 PUFF; Start 07/28/18 at 14:00 Vasopressin 60 unit/Dextrose 60 ml @ 1.2 mls/hr Q12H IV Last administered on 07/28/18at 16:58; Admin Dose 1.2 MLS/HR; Start 07/28/18 at 16:30 Vancomycin HCl (Vanco Iv Per Pharmacy) VANCOMYCIN PER PHARMACY PER PROTOCOL XX ; Start 07/30/18 at 09:30 Vancomycin HCl 1.25 gm/Sodium Chloride 250 ml @ 83.333 mls/ hr 1300 IVPB Last administered on 07/30/18at 12:25; Admin Dose 83.333 MLS/HR; Start 07/30/18 at 13:00; Stop 07/30/18 at 15:59 Vancomycin HCl 1.25 gm/Sodium Chloride 250 ml @ 83.333 mls/ hr Q24H IVPB ; Start 07/31/18 at 13:00 ALEX HA MD Jul 30, 2018 15:07
[2018-07-31] VITALS (104 sets, daily range): BP systolic 71–118; BP diastolic 39–70; PULSE 96–110; RESP 20–34
[2018-07-31] MEDS: ALBUTEROL HFA 8 GM INHALER INH SCH ×4 (02:00→19:51)
[2018-07-31] MEDS: IPRATROPIUM (HFA) 12.9 GM INHALER INH SCH ×4 (02:00→19:51)
[2018-07-31] MEDS: VASOPRESSIN 60 UNIT in DEXTROSE 5% 57 ML IV SCH ×2 (04:30→16:30)
[2018-07-31] MEDS: PROPOFOL 100 ML IV SCH ×2 (05:44→21:43)
[2018-07-31] MEDS: CEFEPIME 1GM/50 ML (PMX) 50 ML IVPB SCH ×2 (08:40→21:43)
[2018-07-31] MEDS: BALSAM PERU/CASTOR OIL 60 GM TUBE TOP SCH ×2 (08:40→21:44)
[2018-07-31] MEDS: FENOFIBRATE 145 MG TAB PO SCH (08:41)
[2018-07-31] MEDS: FAMOTIDINE 20 MG TAB GTB SCH (08:41)
[2018-07-31] MEDS: METHIMAZOLE 5 MG TAB PO SCH ×2 (08:41→21:44)
[2018-07-31] MEDS: ENOXAPARIN 40 MG/0.4 ML SYG SC SCH (08:42)
--- NOTE | 2018-07-31 09:10 | CONS ---
Date/Time of Note Date/Time of Note DATE: 07/31/18 TIME: 09:08 Assessment/Plan Assessment/Plan Assessment/Plan Ventilator setting; AC of 20, tidal volume 450, PEEP of 12, 80% FiO2. Patient is currently on Levophed at 1 mayur per minute, propofol 20 mics per kilogram per minute. Assessment recommendations; 1. Patient admitted with severe bilateral pneumonia causing respiratory failure requiring intubation. Chest x-ray showing persistent severe pneumonia and ARDS pattern. 2. Anemia. 3. Thrombocytopenia. 4. UTI. 5. History of hyperthyroidism. Continue with supportive care. Obtain follow-up chest x-ray. Prognosis is very poor. 35 minutes of critical care time was spent evaluating the patient. Result Diagram: 07/31/18 0430 07/31/18 0425 Results 24hrs Laboratory Tests Test 07/30/18 19:55 07/31/18 04:25 07/31/18 04:30 Blood Gas Specimen Source Blood arterial Arterial Blood Date Drawn 07/30/2018 8:20:08 PM Arterial Blood pH 7.355 (Temp corrected) Arterial Blood pCO2 43.7 (Temp correct) Arterial Blood pO2 69.8 L (Temp corrected) Arterial Blood HCO3 23.9 Arterial Blood Base Excess -1.6 Arterial Blood 93.2 L Oxygen Saturation Pio Test ACCEPTAB Arterial Blood Gas Right Radial Puncture Site Arterial 0.1 Blood Carboxyhemoglobin Arterial Blood Methemoglobin 0.4 Blood Gas A-a O2 454.7 H Differential Oxyhemoglobin Percent 92.7 L Blood Gas Temperature 37.0 Blood Gas Respiration Rate 20.0 Blood Gas Actual 33 Respiration Rate Blood Gas Modality VENT - AC FiO2 80.0 Blood Gas Tidal Volume 450.0 Blood Gas Low PEEP Setting 12.0 Blood Gas Inspiratory 42.0 Pressure Blood Gas Notified Whom UP Blood Gas Notified Time 07/30/2018 8:32:10 PM Sodium Level 139 Potassium Level 4.7 Chloride Level 106 Carbon Dioxide Level 25 Anion Gap 8 Blood Urea Nitrogen 58 H Creatinine 0.68 Est Glomerular Filtrat Rate mL/min Glucose Level 121 Calcium Level 9.7 Phosphorus Level 3.4 Magnesium Level 2.5 White Blood Count 16.4 H Red Blood Count 2.51 L Hemoglobin 8.0 L Hematocrit 23.4 L Mean Corpuscular Volume 93.2 Mean Corpuscular Hemoglobin 31.9 Mean Corpuscular 34.2 Hemoglobin Concent Red Cell Distribution Width 14.6 H Platelet Count 308 Mean Platelet Volume 9.8 Immature Granulocytes % 8.000 H Neutrophils % Segmented Neutrophils 79 H % (Manual) Band Neutrophils % (Manual) 3 Lymphocytes % Lymphocytes % (Manual) 10 L Monocytes % Monocytes % (Manual) 5 Eosinophils % Eosinophils % (Manual) 2 Basophils % Myelocytes % (Manual) 1 H Nucleated Red Blood Cells % 0.0 Immature Granulocytes # 1.320 H Neutrophils # Neutrophils # (Manual) 13.0 H Band Neutrophils # 0.4 Lymphocytes (Manual) 1.6 Lymphocytes # Monocytes # Monocytes # (Manual) 0.8 Eosinophils # Basophils # Myelocytes # 0.1 H Nucleated Red Blood Cells # Toxic Granulation 1+ Platelet Estimate NORMAL Polychromasia 1+ Poikilocytosis 1+ Anisocytosis 1+ Consultation Date/Type/Reason Admit Date/Time Jul 26, 2018 at 01:38 Initial Consult Date Type of Consult Pulmonary/critical care Requesting Provider: YESSY LANDEROS MD 24 HR Interval Summary Free Text/Dictation Patient's condition remains critical. Remains mildly hypotensive, requiring low-dose Levophed. General exam; elderly female, orally intubated, sedated, currently in no distress. Exam/Review of Systems Vital Signs Vitals Vital Signs Date Temp Pulse Resp B/P (MAP) Pulse Ox O2 O2 Flow FiO2 Time Delivery Rate 07/31/18 97 08:00 07/31/18 25 107/57 92 06:45 (74) 07/31/18 80 06:29 07/31/18 Mechanical 06:00 Ventilator 07/31/18 98.9 04:00 Intake and Output 07/30/18 07/30/18 07/31/18 1515:00 23:00 07:00 IntakeIntake Total 1042.352 ml 911.163 ml 89499.103 ml OutputOutput Total 440 ml 275 ml 270 ml BalanceBalance 602.352 ml 636.163 ml 29725.103 ml Exam H EENT exam; supple neck, no JVD. No lymphadenopathy. Midline trachea. No thyromegaly. Orally intubated. Patient is edentulous. Chest exam; diminished breath sounds bilaterally. S1-S2 audible, no murmurs. Regular rhythm. Abdomen exam; soft, no organomegaly. Bowel sounds audible. Patchy ecchymosis are present. Extremity exam; peripheral edema. [employer] exam; she is sedated. Medications Medications Current Medications Dextrose/Sodium Chloride 1,000 ml @ 100 mls/hr Q10H IV Last administered on 07/28/18 02:00; Admin Dose 100 MLS/HR; Start 07/26/18 at 01:20; Status Hold Ondansetron HCl (Zofran Inj) 4 mg Q6H PRN IV NAUSEA AND/OR VOMITING; Start 07/26/18 at 01:30 Acetaminophen (Tylenol Liquid) 650 mg Q6H PRN PO PAIN LEVEL 1-3 OR FEVER Last administered on 07/30/18 20:32; Admin Dose 650 MG; Start 07/26/18 at 01:30 Enoxaparin Sodium (Lovenox) 40 mg DAILY SC Last administered on 07/31/18 08:42; Admin Dose 40 MG; Start 07/26/18 at 09:00 Propofol 100 ml @ 1.937 mls/ hr PER PROTOCOL IV Last administered on 07/31/18 05:44; Admin Dose 5.81 MLS/HR; Start 07/26/18 at 01:30 Norepinephrine 250 ml @ 1.875 mls/ hr PER PROTOCOL IV Last administered on 07/29/18 20:13; Admin Dose 15 MLS/HR; Start 07/26/18 at 01:30 Cefepime HCl 50 ml @ 100 mls/hr Q12 IVPB Last administered on 07/31/18 08:40; Admin Dose 100 MLS/HR; Start 07/26/18 at 09:00 Azithromycin 250 ml @ 250 mls/hr DAILY IVPB Last administered on 07/30/18 09:19; Admin Dose 250 MLS/HR; Start 07/26/18 at 09:00 Fenofibrate (Tricor) 145 mg DAILY PO Last administered on 07/31/18 08:41; Admin Dose 145 MG; Start 07/26/18 at 09:00 Methimazole (Tapazole) 5 mg BID PO Last administered on 07/31/18 08:41; Admin Dose 5 MG; Start 07/26/18 at 09:00 Famotidine (Pepcid) 20 mg DAILY GTB Last administered on 07/31/18 08:41; Admin Dose 20 MG; Start 07/27/18 at 09:00 Lorazepam (Ativan) 1 mg Q2H PRN GTB ANXIETY; Start 07/26/18 at 12:04 Ipratropium [place] (Atrovent Hfa) 4 puff Q6H RESP THERAPY INH Last administered on 07/31/18at 07:44; Admin Dose 4 PUFF; Start 07/28/18 at 14:00 Albuterol (Ventolin Hfa) 4 puff Q6H RESP THERAPY INH Last administered on 07/31/18at 07:43; Admin Dose 4 PUFF; Start 07/28/18 at 14:00 Vasopressin 60 unit/Dextrose 60 ml @ 1.2 mls/hr Q12H IV Last administered on 07/28/18at 16:58; Admin Dose 1.2 MLS/HR; Start 07/28/18 at 16:30 Vancomycin HCl (Vanco Iv Per Pharmacy) VANCOMYCIN PER PHARMACY PER PROTOCOL XX ; Start 07/30/18 at 09:30 Vancomycin HCl 1.25 gm/Sodium Chloride 250 ml @ 83.333 mls/ hr Q24H IVPB ; Start 07/31/18 at 13:00 MARIE PRADO Jul 31, 2018 09:10
[2018-07-31] MEDS: AZITHROMYCIN 500MG/NS (PMX) 250 ML IVPB SCH (09:34)
[2018-07-31] MEDS ORDERED: FUROSEMIDE 40 MG INJ IV ONE (10:00)
[2018-07-31] MEDS ORDERED: VANCOMYCIN HCL 1.25 GM in SOD CHLORIDE 0.9% 250 ML IVPB SCH (13:00)
--- NOTE | 2018-07-31 13:51 | CONS ---
Date/Time of Note Date/Time of Note DATE: 07/31/18 TIME: 13:46 Assessment/Plan Assessment/Plan Hospital Course IMPRESSION: 1. Tachyarrhythmia concerning for possible accelerated junctional rhythm, likely consistent with ongoing sinus tachycardia with intermittently aberrantly conducted beats possibly rate related.- Most recently S tach/SR 2. Bundle branch block, intermittent, in correction of rate related. I doubt ischemic etiology of the bundle. 3. Positive troponin in the setting of sepsis and hypotension. 4. Hypotension, on pressor support.-Now off levo 5. Anemia. 6. Respiratory failure, status post intubation. 7. Abnormal echocardiogram, assess for acute coronary syndrome with altered mental state. 8. Positive troponin-minimal and downtrending Recc: -ICU -serial ecg's -F/U cx data and continue broad spectrum abx's -Continue tricor -Continue tapazole -Follow acid/base status clsoely -Follow BP closely off of pressors Result Diagram: 07/31/18 0430 07/31/18 0425 Results 24hrs Laboratory Tests Test 07/30/18 19:55 07/31/18 04:25 07/31/18 04:30 Blood Gas Specimen Source Blood arterial Arterial Blood Date Drawn 07/30/2018 8:20:08 PM Arterial Blood pH 7.355 (Temp corrected) Arterial Blood pCO2 43.7 (Temp correct) Arterial Blood pO2 69.8 L (Temp corrected) Arterial Blood HCO3 23.9 Arterial Blood Base Excess -1.6 Arterial Blood 93.2 L Oxygen Saturation Pio Test ACCEPTAB Arterial Blood Gas Right Radial Puncture Site Arterial 0.1 Blood Carboxyhemoglobin Arterial Blood Methemoglobin 0.4 Blood Gas A-a O2 454.7 H Differential Oxyhemoglobin Percent 92.7 L Blood Gas Temperature 37.0 Blood Gas Respiration Rate 20.0 Blood Gas Actual 33 Respiration Rate Blood Gas Modality VENT - AC FiO2 80.0 Blood Gas Tidal Volume 450.0 Blood Gas Low PEEP Setting 12.0 Blood Gas Inspiratory 42.0 Pressure Blood Gas Notified Whom UP Blood Gas Notified Time 07/30/2018 8:32:10 PM Sodium Level 139 Potassium Level 4.7 Chloride Level 106 Carbon Dioxide Level 25 Anion Gap 8 Blood Urea Nitrogen 58 H Creatinine 0.68 Est Glomerular Filtrat Rate mL/min Glucose Level 121 Calcium Level 9.7 Phosphorus Level 3.4 Magnesium Level 2.5 White Blood Count 16.4 H Red Blood Count 2.51 L Hemoglobin 8.0 L Hematocrit 23.4 L Mean Corpuscular Volume 93.2 Mean Corpuscular Hemoglobin 31.9 Mean Corpuscular 34.2 Hemoglobin Concent Red Cell Distribution Width 14.6 H Platelet Count 308 Mean Platelet Volume 9.8 Immature Granulocytes % 8.000 H Neutrophils % Segmented Neutrophils 79 H % (Manual) Band Neutrophils % (Manual) 3 Lymphocytes % Lymphocytes % (Manual) 10 L Monocytes % Monocytes % (Manual) 5 Eosinophils % Eosinophils % (Manual) 2 Basophils % Myelocytes % (Manual) 1 H Nucleated Red Blood Cells % 0.0 Immature Granulocytes # 1.320 H Neutrophils # Neutrophils # (Manual) 13.0 H Band Neutrophils # 0.4 Lymphocytes (Manual) 1.6 Lymphocytes # Monocytes # Monocytes # (Manual) 0.8 Eosinophils # Basophils # Myelocytes # 0.1 H Nucleated Red Blood Cells # Toxic Granulation 1+ Platelet Estimate NORMAL Polychromasia 1+ Poikilocytosis 1+ Anisocytosis 1+ Consultation Date/Type/Reason Admit Date/Time Jul 26, 2018 at 01:38 Initial Consult Date 07/26/18 Type of Consult cardiology Reason for Consultation Hypotension Requesting Provider: YESSY LANDEROS MD Exam/Review of Systems Vital Signs Vitals Vital Signs Date Temp Pulse Resp B/P (MAP) Pulse Ox O2 O2 Flow FiO2 Time Delivery Rate 07/31/18 99 30 92 80 13:10 07/31/18 106/57 Mechanical 09:45 (73) Ventilator 07/31/18 99.7 08:00 Intake and Output 07/30/18 07/30/18 07/31/18 1515:00 23:00 07:00 IntakeIntake Total 1042.352 ml 911.163 ml 52136.663 ml OutputOutput Total 440 ml 275 ml 305 ml BalanceBalance 602.352 ml 636.163 ml 70751.663 ml Exam Review of Systems: CONSTITUTIONAL: No fevers, chills. PULMONARY: intubated CARDIOVASCULAR: No chest pain/palpitations GASTROINTESTINAL: No nausea/vomiting. GENITOURINARY: No hematuria/dysuria. MUSCULOSKELETAL: No myagias/arthalgias. PSYCHIATRIC: The patient denies depression. NEUROLOGIC: sedated Constitutional: alert Psych: no complaints Head: normocephalic ENMT: mucosa pink and moist Neck: supple, jvd (9 cm water) Respiratory: diminished breath sounds Cardiovascular: regular rate and rhythm Gastrointestinal: soft, non-tender Musculoskeletal: muscle tone (normal) Extremities: edema (trace/B) Neurological: other (No focal deficits) Medications Medications Current Medications Dextrose/Sodium Chloride 1,000 ml @ 100 mls/hr Q10H IV Last administered on 07/28/18 02:00; Admin Dose 100 MLS/HR; Start 07/26/18 at 01:20; Status Hold Ondansetron HCl (Zofran Inj) 4 mg Q6H PRN IV NAUSEA AND/OR VOMITING; Start 07/26/18 at 01:30 Acetaminophen (Tylenol Liquid) 650 mg Q6H PRN PO PAIN LEVEL 1-3 OR FEVER Last administered on 07/30/18 20:32; Admin Dose 650 MG; Start 07/26/18 at 01:30 Enoxaparin Sodium (Lovenox) 40 mg DAILY SC Last administered on 07/31/18 08:42; Admin Dose 40 MG; Start 07/26/18 at 09:00 Propofol 100 ml @ 1.937 mls/ hr PER PROTOCOL IV Last administered on 07/31/18 05:44; Admin Dose 5.81 MLS/HR; Start 07/26/18 at 01:30 Norepinephrine 250 ml @ 1.875 mls/ hr PER PROTOCOL IV Last administered on 07/29/18 20:13; Admin Dose 15 MLS/HR; Start 07/26/18 at 01:30 Cefepime HCl 50 ml @ 100 mls/hr Q12 IVPB Last administered on 07/31/18 08:40; Admin Dose 100 MLS/HR; Start 07/26/18 at 09:00 Azithromycin 250 ml @ 250 mls/hr DAILY IVPB Last administered on 07/31/18 09:34; Admin Dose 250 MLS/HR; Start 07/26/18 at 09:00 Fenofibrate (Tricor) 145 mg DAILY PO Last administered on 07/31/18 08:41; Admin Dose 145 MG; Start 07/26/18 at 09:00 Methimazole (Tapazole) 5 mg BID PO Last administered on 07/31/18 08:41; Admin Dose 5 MG; Start 07/26/18 at 09:00 Famotidine (Pepcid) 20 mg DAILY GTB Last administered on 07/31/18at 08:41; Admin Dose 20 MG; Start 07/27/18 at 09:00 Lorazepam (Ativan) 1 mg Q2H PRN GTB ANXIETY; Start 07/26/18 at 12:04 Ipratropium [place] (Atrovent Hfa) 4 puff Q6H RESP THERAPY INH Last administered on 07/31/18at 07:44; Admin Dose 4 PUFF; Start 07/28/18 at 14:00 Albuterol (Ventolin Hfa) 4 puff Q6H RESP THERAPY INH Last administered on 07/31/18at 07:43; Admin Dose 4 PUFF; Start 07/28/18 at 14:00 Vasopressin 60 unit/Dextrose 60 ml @ 1.2 mls/hr Q12H IV Last administered on 07/28/18at 16:58; Admin Dose 1.2 MLS/HR; Start 07/28/18 at 16:30 Vancomycin HCl (Vanco Iv Per Pharmacy) VANCOMYCIN PER PHARMACY PER PROTOCOL XX ; Start 07/30/18 at 09:30 Vancomycin HCl 1.25 gm/Sodium Chloride 250 ml @ 83.333 mls/ hr Q24H IVPB Last administered on 07/31/18at 12:15; Admin Dose 83.333 MLS/HR; Start 07/31/18 at 13:00 Miscellaneous Information (*Rx Drug Level Order Reminder*) VANCOMYCIN TROUGH AT 1200 ONCE ONCE XX ; Start 08/01/18 at 12:00; Stop 08/01/18 at 12:01 YESSY KELLY Jul 31, 2018 13:51
--- NOTE | 2018-07-31 14:24 | PN ---
Date/Time of Note Date/Time of Note DATE: 07/31/18 TIME: 14:19 Assessment/Plan VTE Prophylaxis Risk score (from Ns)>0 risk: 11 SCD applied (from Ns): Yes Pharmacological prophylaxis: LMWH Lines/Catheters IV Catheter Type (from Nrs): Central Line Central line still needed: Yes Urinary Cath still in place: Yes Reason Cath still needed: other (indicate) (intubated) Assessment/Plan Assessment/Plan 87 yo woman admitted for pneumonia with severe sepsis and acute respiratory failure requiring mechanical ventilation. # Hypercapnic and hypoxic respiratory failure: - Intubated 07/25. Likely secondary to pneumonia and possibly COPD exacerbation as well given history - Continue vent support. Pulmonary following - As of 07/29 appears to have developed ARDS requiring very high PEEP and FiO2. Proceeding with spot diuresis. - IV antibiotics - Resp culture growing H flu. - Continue tube feeds. - Blood cultures negative. # Positive troponin: Likely demand ischemia from above - trops slowly trending down - Dr Perrin following - Only prophylactic dose lovenox for now. - 2D echo # History of hypertension: Now off pressors but still hypotensive. # Hyperthyroidism: TSH currently at safe level. Continue methimazole # Dyslipidemia: Continue fenofibrate Code status: Do not resuscitate, do not re-intubate. Result Diagram: 07/31/18 0430 07/31/18 0425 Results 24hrs Laboratory Tests Test 07/30/18 19:55 07/31/18 04:25 07/31/18 04:30 Blood Gas Specimen Source Blood arterial Arterial Blood Date Drawn 07/30/2018 8:20:08 PM Arterial Blood pH 7.355 (Temp corrected) Arterial Blood pCO2 43.7 (Temp correct) Arterial Blood pO2 69.8 L (Temp corrected) Arterial Blood HCO3 23.9 Arterial Blood Base Excess -1.6 Arterial Blood 93.2 L Oxygen Saturation Pio Test ACCEPTAB Arterial Blood Gas Right Radial Puncture Site Arterial 0.1 Blood Carboxyhemoglobin Arterial Blood Methemoglobin 0.4 Blood Gas A-a O2 454.7 H Differential Oxyhemoglobin Percent 92.7 L Blood Gas Temperature 37.0 Blood Gas Respiration Rate 20.0 Blood Gas Actual 33 Respiration Rate Blood Gas Modality VENT - AC FiO2 80.0 Blood Gas Tidal Volume 450.0 Blood Gas Low PEEP Setting 12.0 Blood Gas Inspiratory 42.0 Pressure Blood Gas Notified Whom UP Blood Gas Notified Time 07/30/2018 8:32:10 PM Sodium Level 139 Potassium Level 4.7 Chloride Level 106 Carbon Dioxide Level 25 Anion Gap 8 Blood Urea Nitrogen 58 H Creatinine 0.68 Est Glomerular Filtrat Rate mL/min Glucose Level 121 Calcium Level 9.7 Phosphorus Level 3.4 Magnesium Level 2.5 White Blood Count 16.4 H Red Blood Count 2.51 L Hemoglobin 8.0 L Hematocrit 23.4 L Mean Corpuscular Volume 93.2 Mean Corpuscular Hemoglobin 31.9 Mean Corpuscular 34.2 Hemoglobin Concent Red Cell Distribution Width 14.6 H Platelet Count 308 Mean Platelet Volume 9.8 Immature Granulocytes % 8.000 H Neutrophils % Segmented Neutrophils 79 H % (Manual) Band Neutrophils % (Manual) 3 Lymphocytes % Lymphocytes % (Manual) 10 L Monocytes % Monocytes % (Manual) 5 Eosinophils % Eosinophils % (Manual) 2 Basophils % Myelocytes % (Manual) 1 H Nucleated Red Blood Cells % 0.0 Immature Granulocytes # 1.320 H Neutrophils # Neutrophils # (Manual) 13.0 H Band Neutrophils # 0.4 Lymphocytes (Manual) 1.6 Lymphocytes # Monocytes # Monocytes # (Manual) 0.8 Eosinophils # Basophils # Myelocytes # 0.1 H Nucleated Red Blood Cells # Toxic Granulation 1+ Platelet Estimate NORMAL Polychromasia 1+ Poikilocytosis 1+ Anisocytosis 1+ Subjective 24 Hr Interval Summary Free Text/Dictation No acute overnight events. Weaned off pressors; however today with very high oxygen requirements and PEEP. Exam/Review of Systems Vital Signs Vitals Vital Signs Date Temp Pulse Resp B/P (MAP) Pulse Ox O2 O2 Flow FiO2 Time Delivery Rate 07/31/18 99 30 92 80 13:10 07/31/18 106/57 Mechanical 09:45 (73) Ventilator 07/31/18 99.7 08:00 Intake and Output 07/30/18 07/30/18 07/31/18 1515:00 23:00 07:00 IntakeIntake Total 1042.352 ml 911.163 ml 72289.663 ml OutputOutput Total 440 ml 275 ml 305 ml BalanceBalance 602.352 ml 636.163 ml 66368.663 ml Exam Gen: Elderly woman intubated, sedated. HEENT: Moist mucous membranes, ET tube in place. Neck: No lymphadenopathy Chest: L chest subclavian line in place Card:regular rate and rhythm, no murmurs Pulm: Mechanical breath sounds, coarse, with crackles throughout. Abd: Soft, nondistended. Ext: No cyanosis/clubbing/edema. Medications Medications Current Medications Dextrose/Sodium Chloride 1,000 ml @ 100 mls/hr Q10H IV Last administered on 07/28/18 02:00; Admin Dose 100 MLS/HR; Start 07/26/18 at 01:20; Status Hold Ondansetron HCl (Zofran Inj) 4 mg Q6H PRN IV NAUSEA AND/OR VOMITING; Start 07/26/18 at 01:30 Acetaminophen (Tylenol Liquid) 650 mg Q6H PRN PO PAIN LEVEL 1-3 OR FEVER Last administered on 07/30/18 20:32; Admin Dose 650 MG; Start 07/26/18 at 01:30 Enoxaparin Sodium (Lovenox) 40 mg DAILY SC Last administered on 07/31/18 08:42; Admin Dose 40 MG; Start 07/26/18 at 09:00 Propofol 100 ml @ 1.937 mls/ hr PER PROTOCOL IV Last administered on 07/31/18 05:44; Admin Dose 5.81 MLS/HR; Start 07/26/18 at 01:30 Norepinephrine 250 ml @ 1.875 mls/ hr PER PROTOCOL IV Last administered on 07/29/18 20:13; Admin Dose 15 MLS/HR; Start 07/26/18 at 01:30 Cefepime HCl 50 ml @ 100 mls/hr Q12 IVPB Last administered on 07/31/18 08:40; Admin Dose 100 MLS/HR; Start 07/26/18 at 09:00 Azithromycin 250 ml @ 250 mls/hr DAILY IVPB Last administered on 07/31/18 09:34; Admin Dose 250 MLS/HR; Start 07/26/18 at 09:00 Fenofibrate (Tricor) 145 mg DAILY PO Last administered on 07/31/18 08:41; Admin Dose 145 MG; Start 07/26/18 at 09:00 Methimazole (Tapazole) 5 mg BID PO Last administered on 07/31/18 08:41; Admin Dose 5 MG; Start 07/26/18 at 09:00 Famotidine (Pepcid) 20 mg DAILY GTB Last administered on 07/31/18at 08:41; Admin Dose 20 MG; Start 07/27/18 at 09:00 Lorazepam (Ativan) 1 mg Q2H PRN GTB ANXIETY; Start 07/26/18 at 12:04 Ipratropium [place] (Atrovent Hfa) 4 puff Q6H RESP THERAPY INH Last administered on 07/31/18at 07:44; Admin Dose 4 PUFF; Start 07/28/18 at 14:00 Albuterol (Ventolin Hfa) 4 puff Q6H RESP THERAPY INH Last administered on 07/31/18at 07:43; Admin Dose 4 PUFF; Start 07/28/18 at 14:00 Vasopressin 60 unit/Dextrose 60 ml @ 1.2 mls/hr Q12H IV Last administered on 07/28/18at 16:58; Admin Dose 1.2 MLS/HR; Start 07/28/18 at 16:30 Vancomycin HCl (Vanco Iv Per Pharmacy) VANCOMYCIN PER PHARMACY PER PROTOCOL XX ; Start 07/30/18 at 09:30 Vancomycin HCl 1.25 gm/Sodium Chloride 250 ml @ 83.333 mls/ hr Q24H IVPB Last administered on 07/31/18at 12:15; Admin Dose 83.333 MLS/HR; Start 07/31/18 at 13:00 Miscellaneous Information (*Rx Drug Level Order Reminder*) VANCOMYCIN TROUGH AT 1200 ONCE ONCE XX ; Start 08/01/18 at 12:00; Stop 08/01/18 at 12:01 YESSY LANDEROS MD Jul 31, 2018 14:24
[2018-07-31] MEDS: NORepinephrine 8MG/250 ML (PMX 250 ML IV SCH (14:52)
[2018-08-01] VITALS (106 sets, daily range): BP systolic 74–134; BP diastolic 39–105; PULSE 91–113; RESP 20–33
[2018-08-01] MEDS: ALBUTEROL HFA 8 GM INHALER INH SCH ×4 (01:20→19:48)
[2018-08-01] MEDS: IPRATROPIUM (HFA) 12.9 GM INHALER INH SCH ×4 (01:20→19:48)
[2018-08-01] MEDS: VASOPRESSIN 60 UNIT in DEXTROSE 5% 57 ML IV SCH ×2 (04:30→16:29)
[2018-08-01] MEDS: CEFEPIME 1GM/50 ML (PMX) 50 ML IVPB SCH ×2 (08:49→20:32)
[2018-08-01] MEDS: FAMOTIDINE 20 MG TAB GTB SCH (08:51)
[2018-08-01] MEDS: FENOFIBRATE 145 MG TAB PO SCH (08:51)
[2018-08-01] MEDS: METHIMAZOLE 5 MG TAB PO SCH ×2 (08:51→20:32)
[2018-08-01] MEDS: ENOXAPARIN 40 MG/0.4 ML SYG SC SCH (08:52)
[2018-08-01] MEDS: FUROSEMIDE 100 MG INJ IV SCH ×2 (09:52→17:47)
[2018-08-01] MEDS: AZITHROMYCIN 500MG/NS (PMX) 250 ML IVPB SCH (09:52)
[2018-08-01] MEDS: BALSAM PERU/CASTOR OIL 60 GM TUBE TOP SCH ×2 (09:52→20:32)
--- NOTE | 2018-08-01 10:51 | CONS ---
Date/Time of Note Date/Time of Note DATE: 08/01/18 TIME: 10:49 Assessment/Plan Assessment/Plan Assessment/Plan Chest x-ray showing persistent bilateral pneumonia with ARDS pattern. Ventilator setting; AC of 20, tidal volume 450, PEEP of 12, 100% FiO2. Patient is currently on Levophed at 4 mics per minute, propofol 20 mics per kilogram per minute. Assessment and recommendations; 1. Patient admitted with severe bilateral community acquired pneumonia with ARDS. With no interval improvement despite adequate antimicrobial coverage. 2. History of hyperthyroidism. 3. Anemia. 4. UTI. Continue on supportive care. Prognosis is poor. Obtain follow-up chest x-ray 24 hours. Result Diagram: 08/01/18 0420 08/01/18 0420 Results 24hrs Laboratory Tests Test 08/01/18 04:20 White Blood Count 17.7 H Red Blood Count 2.32 L Hemoglobin 7.5 L Hematocrit 22.0 L Mean Corpuscular Volume 94.8 Mean Corpuscular Hemoglobin 32.3 Mean Corpuscular Hemoglobin Concent 34.1 Red Cell Distribution Width 14.9 H Platelet Count 303 Mean Platelet Volume 10.4 Immature Granulocytes % 6.800 H Neutrophils % Segmented Neutrophils % (Manual) 87 H Lymphocytes % Lymphocytes % (Manual) 4 L Monocytes % Monocytes % (Manual) 6 Eosinophils % Eosinophils % (Manual) 2 Basophils % Metamyelocytes % (manual) 1 H Nucleated Red Blood Cells % 0.1 H Immature Granulocytes # 1.210 H Neutrophils # Lymphocytes (Manual) 0.7 L Lymphocytes # Monocytes # Monocytes # (Manual) 1.0 H Eosinophils # Basophils # Metamyelocytes # 0.1 H Nucleated Red Blood Cells # Toxic Granulation 1+ Platelet Estimate NORMAL Polychromasia 1+ Anisocytosis 2+ Macrocytosis 2+ Sodium Level 138 Potassium Level 4.8 Chloride Level 109 Carbon Dioxide Level 25 Anion Gap 4 L Blood Urea Nitrogen 75 H Creatinine 0.83 Est Glomerular Filtrat Rate mL/min Glucose Level 143 Calcium Level 9.9 Phosphorus Level 3.7 Magnesium Level 2.6 H Consultation Date/Type/Reason Admit Date/Time Jul 26, 2018 at 01:38 Initial Consult Date Type of Consult Pulmonary/critical care Requesting Provider: YESSY LANDEROS MD 24 HR Interval Summary Free Text/Dictation Patient's condition remains critical. Still requiring 100% FiO2 as well as Levophed for hypotension. General exam; elderly female, orally intubated, sedated, currently in no distress. Exam/Review of Systems Vital Signs Vitals Vital Signs Date Temp Pulse Resp B/P (MAP) Pulse Ox O2 O2 Flow FiO2 Time Delivery Rate 08/01/18 100 30 109/56 94 Mechanical 10:00 (73) Ventilator 08/01/18 98.8 08:00 08/01/18 100 08:00 Intake and Output 07/31/18 07/31/18 08/01/18 1515:00 23:00 07:00 IntakeIntake Total 901.23 ml 847.45 ml 722.346 ml OutputOutput Total 585 ml 350 ml 305 ml BalanceBalance 316.23 ml 497.45 ml 417.346 ml Exam H EENT exam; supple neck, no JVD. No lymphadenopathy. Midline trachea. No thyromegaly. Orally intubated. Patient is edentulous. Pupils are small bilaterally. Chest exam; diminished breath sounds bilaterally. S1-S2 audible, no murmurs. Regular rhythm. Abdomen exam; soft, no organomegaly. Bowel sounds audible. Extremity exam; no peripheral edema or clubbing. [employer]ING MACHINE SETTER exam; patient is sedated. Medications Medications Current Medications Dextrose/Sodium Chloride 1,000 ml @ 100 mls/hr Q10H IV Last administered on 07/28/18at 02:00; Admin Dose 100 MLS/HR; Start 07/26/18 at 01:20; Status Hold Ondansetron HCl (Zofran Inj) 4 mg Q6H PRN IV NAUSEA AND/OR VOMITING; Start 07/26/18 at 01:30 Acetaminophen (Tylenol Liquid) 650 mg Q6H PRN PO PAIN LEVEL 1-3 OR FEVER Last administered on 07/30/18at 20:32; Admin Dose 650 MG; Start 07/26/18 at 01:30 Enoxaparin Sodium (Lovenox) 40 mg DAILY SC Last administered on 08/01/18at 08:52; Admin Dose 40 MG; Start 07/26/18 at 09:00 Propofol 100 ml @ 1.937 mls/ hr PER PROTOCOL IV Last administered on 07/31/18at 21:43; Admin Dose 7.746 MLS/HR; Start 07/26/18 at 01:30 Norepinephrine 250 ml @ 1.875 mls/ hr PER PROTOCOL IV Last administered on 07/31/18 14:52; Admin Dose 3.75 MLS/HR; Start 07/26/18 at 01:30 Cefepime HCl 50 ml @ 100 mls/hr Q12 IVPB Last administered on 08/01/18 08:49; Admin Dose 100 MLS/HR; Start 07/26/18 at 09:00 Azithromycin 250 ml @ 250 mls/hr DAILY IVPB Last administered on 08/01/18 09:52; Admin Dose 250 MLS/HR; Start 07/26/18 at 09:00 Fenofibrate (Tricor) 145 mg DAILY PO Last administered on 08/01/18 08:51; Admin Dose 145 MG; Start 07/26/18 at 09:00 Methimazole (Tapazole) 5 mg BID PO Last administered on 08/01/18 08:51; Admin Dose 5 MG; Start 07/26/18 at 09:00 Famotidine (Pepcid) 20 mg DAILY GTB Last administered on 08/01/18 08:51; Admin Dose 20 MG; Start 07/27/18 at 09:00 Lorazepam (Ativan) 1 mg Q2H PRN GTB ANXIETY; Start 07/26/18 at 12:04 Ipratropium [place] (Atrovent Hfa) 4 puff Q6H RESP THERAPY INH Last administered on 08/01/18 07:59; Admin Dose 4 PUFF; Start 07/28/18 at 14:00 Albuterol (Ventolin Hfa) 4 puff Q6H RESP THERAPY INH Last administered on 08/01/18 07:59; Admin Dose 4 PUFF; Start 07/28/18 at 14:00 Vasopressin 60 unit/Dextrose 60 ml @ 1.2 mls/hr Q12H IV Last administered on 07/28/18 16:58; Admin Dose 1.2 MLS/HR; Start 07/28/18 at 16:30 Vancomycin HCl (Vanco Iv Per Pharmacy) VANCOMYCIN PER PHARMACY PER PROTOCOL XX ; Start 07/30/18 at 09:30 Vancomycin HCl 1.25 gm/Sodium Chloride 250 ml @ 83.333 mls/ hr Q24H IVPB Last administered on 07/31/18 12:15; Admin Dose 83.333 MLS/HR; Start 07/31/18 at 13:00 Miscellaneous Information (*Rx Drug Level Order Reminder*) VANCOMYCIN TROUGH AT 1200 ONCE ONCE XX ; Start 08/01/18 at 12:00; Stop 08/01/18 at 12:01 Furosemide (Lasix) 80 mg BID DIURETICS IV Last administered on 08/01/18at 09:52; Admin Dose 80 MG; Start 08/01/18 at 09:30 MARIE PRADO Aug 01, 2018 10:51
[2018-08-01] MEDS: ACETAMINOPHEN 650MG/20.3ML CUP PO PRN (11:59)
[2018-08-01] MEDS: PROPOFOL 100 ML IV SCH ×2 (12:27→20:54)
--- NOTE | 2018-08-01 14:10 | CONS ---
Date/Time of Note Date/Time of Note DATE: 08/01/18 TIME: 14:05 Assessment/Plan Assessment/Plan Hospital Course IMPRESSION: 1. Tachyarrhythmia concerning for possible accelerated junctional rhythm, likely consistent with ongoing sinus tachycardia with intermittently aberrantly conducted beats possibly rate related.- Most recently SR/intermittent S tach 2. Bundle branch block, intermittent, in correction of rate related. I doubt ischemic etiology of the bundle. 3. Positive troponin in the setting of sepsis and hypotension. 4. Hypotension, on pressor support.-Now back on levo 5. Anemia. 6. Respiratory failure, status post intubation. 7. Abnormal echocardiogram, assess for acute coronary syndrome with altered mental state. 8. Positive troponin-minimal and downtrended 9. PNA/?ARDS Recc: -ICU -serial ecg's -F/U cx data and continue broad spectrum abx's -Continue tricor -Continue tapazole -Follow acid/base status clsoely -Follow volume status closely and would consider decrease dose of lasix/hold given increasing BUn.Education Program Specialist ratio/patient back on pressors Result Diagram: 08/01/18 0420 08/01/18 0420 Results 24hrs Laboratory Tests Test 08/01/18 04:20 08/01/18 12:04 White Blood Count 17.7 H Red Blood Count 2.32 L Hemoglobin 7.5 L Hematocrit 22.0 L Mean Corpuscular Volume 94.8 Mean Corpuscular Hemoglobin 32.3 Mean Corpuscular Hemoglobin Concent 34.1 Red Cell Distribution Width 14.9 H Platelet Count 303 Mean Platelet Volume 10.4 Immature Granulocytes % 6.800 H Neutrophils % Segmented Neutrophils % (Manual) 87 H Lymphocytes % Lymphocytes % (Manual) 4 L Monocytes % Monocytes % (Manual) 6 Eosinophils % Eosinophils % (Manual) 2 Basophils % Metamyelocytes % (manual) 1 H Nucleated Red Blood Cells % 0.1 H Immature Granulocytes # 1.210 H Neutrophils # Lymphocytes (Manual) 0.7 L Lymphocytes # Monocytes # Monocytes # (Manual) 1.0 H Eosinophils # Basophils # Metamyelocytes # 0.1 H Nucleated Red Blood Cells # Toxic Granulation 1+ Platelet Estimate NORMAL Polychromasia 1+ Anisocytosis 2+ Macrocytosis 2+ Sodium Level 138 Potassium Level 4.8 Chloride Level 109 Carbon Dioxide Level 25 Anion Gap 4 L Blood Urea Nitrogen 75 H Creatinine 0.83 Est Glomerular Filtrat Rate mL/min Glucose Level 143 Calcium Level 9.9 Phosphorus Level 3.7 Magnesium Level 2.6 H Vancomycin Level Trough 17.3 Consultation Date/Type/Reason Admit Date/Time Jul 26, 2018 at 01:38 Initial Consult Date 07/26/18 Type of Consult cardiology Reason for Consultation Positive troponin Requesting Provider: YESSY LANDEROS MD Exam/Review of Systems Vital Signs Vitals Vital Signs Date Temp Pulse Resp B/P (MAP) Pulse Ox O2 O2 Flow FiO2 Time Delivery Rate 08/01/18 92 24 86/40 (55) 94 Mechanical 13:30 Ventilator 08/01/18 99.0 12:45 08/01/18 100 08:00 Intake and Output 07/31/18 07/31/18 08/01/18 1515:00 23:00 07:00 IntakeIntake Total 901.23 ml 847.45 ml 722.346 ml OutputOutput Total 585 ml 350 ml 305 ml BalanceBalance 316.23 ml 497.45 ml 417.346 ml Exam Review of Systems: CONSTITUTIONAL: No fevers, chills. PULMONARY: No sob CARDIOVASCULAR: No chest pain/palpitations GASTROINTESTINAL: No nausea/vomiting. GENITOURINARY: No hematuria/dysuria. MUSCULOSKELETAL: No myagias/arthalgias. PSYCHIATRIC: The patient denies depression. NEUROLOGIC: No weakness Constitutional: other (sedated) Psych: no complaints Head: normocephalic ENMT: mucosa pink and moist Neck: supple, jvd (9 cm water) Respiratory: diminished breath sounds Cardiovascular: regular rate and rhythm Gastrointestinal: soft, non-tender Musculoskeletal: muscle weakness (GENERALIZED WEAKNESS) Extremities: edema (NONE) Neurological: other (SEDATED) Medications Medications Current Medications Dextrose/Sodium Chloride 1,000 ml @ 100 mls/hr Q10H IV Last administered on 07/28/18at 02:00; Admin Dose 100 MLS/HR; Start 07/26/18 at 01:20; Status Hold Ondansetron HCl (Zofran Inj) 4 mg Q6H PRN IV NAUSEA AND/OR VOMITING; Start 07/26/18 at 01:30 Acetaminophen (Tylenol Liquid) 650 mg Q6H PRN PO PAIN LEVEL 1-3 OR FEVER Last administered on 08/01/18at 11:59; Admin Dose 650 MG; Start 07/26/18 at 01:30 Enoxaparin Sodium (Lovenox) 40 mg DAILY SC Last administered on 08/01/18 08:52; Admin Dose 40 MG; Start 07/26/18 at 09:00 Propofol 100 ml @ 1.937 mls/ hr PER PROTOCOL IV Last administered on 08/01/18 12:27; Admin Dose 7.746 MLS/HR; Start 07/26/18 at 01:30 Norepinephrine 250 ml @ 1.875 mls/ hr PER PROTOCOL IV Last administered on 07/31/18 14:52; Admin Dose 3.75 MLS/HR; Start 07/26/18 at 01:30 Cefepime HCl 50 ml @ 100 mls/hr Q12 IVPB Last administered on 08/01/18 08:49; Admin Dose 100 MLS/HR; Start 07/26/18 at 09:00 Azithromycin 250 ml @ 250 mls/hr DAILY IVPB Last administered on 08/01/18 09:52; Admin Dose 250 MLS/HR; Start 07/26/18 at 09:00 Fenofibrate (Tricor) 145 mg DAILY PO Last administered on 08/01/18 08:51; Admin Dose 145 MG; Start 07/26/18 at 09:00 Methimazole (Tapazole) 5 mg BID PO Last administered on 08/01/18 08:51; Admin Dose 5 MG; Start 07/26/18 at 09:00 Famotidine (Pepcid) 20 mg DAILY GTB Last administered on 08/01/18 08:51; Admin Dose 20 MG; Start 07/27/18 at 09:00 Lorazepam (Ativan) 1 mg Q2H PRN GTB ANXIETY; Start 07/26/18 at 12:04 Ipratropium [place] (Atrovent Hfa) 4 puff Q6H RESP THERAPY INH Last administered on 08/01/18 13:41; Admin Dose 4 PUFF; Start 07/28/18 at 14:00 Albuterol (Ventolin Hfa) 4 puff Q6H RESP THERAPY INH Last administered on 08/01/18 13:41; Admin Dose 4 PUFF; Start 07/28/18 at 14:00 Vasopressin 60 unit/Dextrose 60 ml @ 1.2 mls/hr Q12H IV Last administered on 1/9/19at 16:58; Admin Dose 1.2 MLS/HR; Start 07/28/18 at 16:30 Vancomycin HCl (Vanco Iv Per Pharmacy) VANCOMYCIN PER PHARMACY PER PROTOCOL XX ; Start 07/30/18 at 09:30 Furosemide (Lasix) 80 mg BID DIURETICS IV Last administered on 08/01/18at 09:52; Admin Dose 80 MG; Start 08/01/18 at 09:30 Vancomycin/Sodium Chloride 250 ml @ 125 mls/hr Q24H IVPB ; Start 08/01/18 at 14:30 YESSY KELLY Aug 01, 2018 14:10
[2018-08-01] MEDS ORDERED: VANCOMYCIN 750 MG (PMX) 250 ML IVPB SCH (14:30)
--- NOTE | 2018-08-01 16:57 | PN ---
Date/Time of Note Date/Time of Note DATE: 08/01/18 TIME: 16:54 Assessment/Plan VTE Prophylaxis Risk score (from Ns)>0 risk: 11 SCD applied (from Ns): Yes Pharmacological prophylaxis: LMWH Lines/Catheters IV Catheter Type (from Nrs): Central Line Central line still needed: Yes Urinary Cath still in place: Yes Reason Cath still needed: terminal illness/intractable pain Assessment/Plan Assessment/Plan 87 yo woman admitted for pneumonia with severe sepsis and acute respiratory failure requiring mechanical ventilation. # Hypercapnic and hypoxic respiratory failure: - Intubated 07/25. Likely secondary to pneumonia and possibly COPD exacerbation as well given history - Continue vent support. Pulmonary following - As of 07/29 appears to have developed ARDS requiring very high PEEP and FiO2. Proceeding with diuresis. Outside the window for prone positioning. - IV antibiotics - Resp culture growing H flu. - Continue tube feeds. - Blood cultures negative. # Positive troponin: Likely demand ischemia from above - trops slowly trending down - Dr Perrin following - Only prophylactic dose lovenox for now. - 2D echo # History of hypertension: Now off pressors but still hypotensive. # Hyperthyroidism: TSH currently at safe level. Continue methimazole # Dyslipidemia: Continue fenofibrate Code status: Do not resuscitate, do not re-intubate. Result Diagram: 08/01/1841908/01/18419 Results 24hrs Laboratory Tests Test 08/01/18 04:20 08/01/18 12:04 White Blood Count 17.7 H Red Blood Count 2.32 L Hemoglobin 7.5 L Hematocrit 22.0 L Mean Corpuscular Volume 94.8 Mean Corpuscular Hemoglobin 32.3 Mean Corpuscular Hemoglobin Concent 34.1 Red Cell Distribution Width 14.9 H Platelet Count 303 Mean Platelet Volume 10.4 Immature Granulocytes % 6.800 H Neutrophils % Segmented Neutrophils % (Manual) 87 H Lymphocytes % Lymphocytes % (Manual) 4 L Monocytes % Monocytes % (Manual) 6 Eosinophils % Eosinophils % (Manual) 2 Basophils % Metamyelocytes % (manual) 1 H Nucleated Red Blood Cells % 0.1 H Immature Granulocytes # 1.210 H Neutrophils # Lymphocytes (Manual) 0.7 L Lymphocytes # Monocytes # Monocytes # (Manual) 1.0 H Eosinophils # Basophils # Metamyelocytes # 0.1 H Nucleated Red Blood Cells # Toxic Granulation 1+ Platelet Estimate NORMAL Polychromasia 1+ Anisocytosis 2+ Macrocytosis 2+ Sodium Level 138 Potassium Level 4.8 Chloride Level 109 Carbon Dioxide Level 25 Anion Gap 4 L Blood Urea Nitrogen 75 H Creatinine 0.83 Est Glomerular Filtrat Rate mL/min Glucose Level 143 Calcium Level 9.9 Phosphorus Level 3.7 Magnesium Level 2.6 H Vancomycin Level Trough 17.3 Subjective 24 Hr Interval Summary Free Text/Dictation No acute overnight events. Worsening vent settings. Now on FiO2 100%, PEEP 12, satting 92% Updated family on worsening oxygenation and very grim prognosis. Exam/Review of Systems Vital Signs Vitals Vital Signs Date Temp Pulse Resp B/P (MAP) Pulse Ox O2 O2 Flow FiO2 Time Delivery Rate 08/01/18 98.0 96 28 115/50 93 Mechanical 16:00 (71) Ventilator 08/01/18 100 13:10 Intake and Output 07/31/18 07/31/18 08/01/18 1515:00 23:00 07:00 IntakeIntake Total 901.23 ml 847.45 ml 722.346 ml OutputOutput Total 585 ml 350 ml 305 ml BalanceBalance 316.23 ml 497.45 ml 417.346 ml Exam Gen: Elderly woman intubated, sedated. HEENT: Moist mucous membranes, ET tube in place. Neck: No lymphadenopathy Chest: L chest subclavian line in place Card:regular rate and rhythm, no murmurs Pulm: Mechanical breath sounds, coarse, with crackles throughout. Abd: Soft, nondistended. Ext: No cyanosis/clubbing/edema. Medications Medications Current Medications Dextrose/Sodium Chloride 1,000 ml @ 100 mls/hr Q10H IV Last administered on 07/28/18at 02:00; Admin Dose 100 MLS/HR; Start 07/26/18 at 01:20; Status Hold Ondansetron HCl (Zofran Inj) 4 mg Q6H PRN IV NAUSEA AND/OR VOMITING; Start 07/26 at 01:30 Acetaminophen (Tylenol Liquid) 650 mg Q6H PRN PO PAIN LEVEL 1-3 OR FEVER Last administered on 08/01/18at 11:59; Admin Dose 650 MG; Start 07/26/18 at 01:30 Enoxaparin Sodium (Lovenox) 40 mg DAILY SC Last administered on 08/01/18 08:52; Admin Dose 40 MG; Start 07/26/18 at 09:00 Propofol 100 ml @ 1.937 mls/ hr PER PROTOCOL IV Last administered on 08/01/18 12:27; Admin Dose 7.746 MLS/HR; Start 07/26/18 at 01:30 Norepinephrine 250 ml @ 1.875 mls/ hr PER PROTOCOL IV Last administered on 07/31/18 14:52; Admin Dose 3.75 MLS/HR; Start 07/26/18 at 01:30 Cefepime HCl 50 ml @ 100 mls/hr Q12 IVPB Last administered on 08/01/18 08:49; Admin Dose 100 MLS/HR; Start 07/26/18 at 09:00 Azithromycin 250 ml @ 250 mls/hr DAILY IVPB Last administered on 08/01/18 09:52; Admin Dose 250 MLS/HR; Start 07/26/18 at 09:00 Fenofibrate (Tricor) 145 mg DAILY PO Last administered on 08/01/18 08:51; Admin Dose 145 MG; Start 07/26/18 at 09:00 Methimazole (Tapazole) 5 mg BID PO Last administered on 08/01/18 08:51; Admin Dose 5 MG; Start 07/26/18 at 09:00 Famotidine (Pepcid) 20 mg DAILY GTB Last administered on 08/01/18 08:51; Admin Dose 20 MG; Start 07/27/18 at 09:00 Lorazepam (Ativan) 1 mg Q2H PRN GTB ANXIETY; Start 07/26/18 at 12:04 Ipratropium [place] (Atrovent Hfa) 4 puff Q6H RESP THERAPY INH Last administered on 08/01/18 13:41; Admin Dose 4 PUFF; Start 07/28/18 at 14:00 Albuterol (Ventolin Hfa) 4 puff Q6H RESP THERAPY INH Last administered on 08/01/18 13:41; Admin Dose 4 PUFF; Start 07/28/18 at 14:00 Vasopressin 60 unit/Dextrose 60 ml @ 1.2 mls/hr Q12H IV Last administered on 07/28/18 16:58; Admin Dose 1.2 MLS/HR; Start 07/28/18 at 16:30 Vancomycin HCl (Vanco Iv Per Pharmacy) VANCOMYCIN PER PHARMACY PER PROTOCOL XX ; Start 07/30/18 at 09:30 Furosemide (Lasix) 80 mg BID DIURETICS IV Last administered on 08/01/18at 09:52; Admin Dose 80 MG; Start 08/01/18 at 09:30 Vancomycin/Sodium Chloride 250 ml @ 125 mls/hr Q24H IVPB Last administered on 08/01/18at 14:52; Admin Dose 125 MLS/HR; Start 08/01/18 at 14:30 YESSY LANDEROS MD Aug 01, 2018 16:57
[2018-08-01] MEDS: NORepinephrine 8MG/250 ML (PMX 250 ML IV SCH (20:54)
[2018-08-02] VITALS (37 sets, daily range): BP systolic 0–142; BP diastolic 0–64; PULSE 0–125; RESP 18–49
[2018-08-02] MEDS: IPRATROPIUM (HFA) 12.9 GM INHALER INH SCH (01:00)
[2018-08-02] MEDS: ALBUTEROL HFA 8 GM INHALER INH SCH (01:00)
[2018-08-02] MEDS: VASOPRESSIN 60 UNIT in DEXTROSE 5% 57 ML IV SCH (04:30)
[2018-08-02] MEDS: FUROSEMIDE 100 MG INJ IV SCH (06:00)
--- NOTE | 2018-08-02 06:50 | EN ---
Date/Time of Note Date/Time of Note DATE: 08/02/18 TIME: 06:49 Event Note Medicine Medicine Event Note Called to the room by the nurse at the patient's family wanted to change the patient's goals of care and CODE STATUS. Children of the patient were at the bedside along with the granddaughter. They voiced to me that they did not want the patient to suffer any longer. They have made a decision to withdraw care and make her comfort care. I explained the procedure to them and clarified their decision. They are in agreement with starting a morphine drip and then extubating the patient. Morphine drip will be initiated. CODE STATUS will be changed to comfort measures only. NESHA HERNANDEZ Aug 02, 2018 06:50
[2018-08-02] MEDS ORDERED: morphine (DRIP) 100 MG/100 ML 100 ML IV SCH ×2 (07:30→08:00)
[2018-08-02] MEDS ORDERED: ATROPINE 1% 5 ML OPH SL PRN (07:30)
[2018-08-02] MEDS ORDERED: NS + KCL 30 MEQ 1,000 ML IV ONE (07:58)
--- NOTE | 2018-08-02 09:27 | PN ---
Date/Time of Note Date/Time of Note DATE: 08/02/18 TIME: 09:23 Assessment/Plan VTE Prophylaxis Risk score (from Ns)>0 risk: 12 SCD applied (from [facility] [place]): No SCD contraindicated: other Pharmacological prophylaxis: other Lines/Catheters IV C[facility]ter Type (from [facility]): Central Line Central line still needed: Yes Urinary Cath still in place: Yes Reason Cath still needed: urinary retention Assessment/Plan Hospital Course S: Patient made comfort care overnight, and now just terminally extubated, presently on Ativan and morphine drip. Family at the bedside. O: VS - see below PE: Gen: Lying in bed HEENT: Moist mucous membranes Neck: Supple Res: Distant breath sounds bilaterally Card:regular rate and rhythm, no murmurs Abd: Soft, nondistended. Ext: No cyanosis/clubbing/edema Assessment/Plan: 87 yo woman admitted for pneumonia with severe sepsis and acute respiratory failure requiring mechanical ventilation. # Hypercapnic and hypoxic respiratory failure: Again patient now comfort measures -Continue Ativan and morphine drip Overall poor prognosis Critical care time spent on patient care today equals 35 minutes. Result Diagram: 08/02/18 0430 08/02/18 0430 Results 24hrs Laboratory Tests Test 08/01/18 12:04 08/02/18 04:30 Vancomycin Level Trough 17.3 White Blood Count 17.9 H Red Blood Count 2.27 L Hemoglobin 7.3 L Hematocrit 21.8 L Mean Corpuscular Volume 96.0 Mean Corpuscular Hemoglobin 32.2 Mean Corpuscular Hemoglobin Concent 33.5 Red Cell Distribution Width 15.3 H Platelet Count 278 Mean Platelet Volume 10.7 H Immature Granulocytes % 4.500 H Neutrophils % 86.9 H Lymphocytes % 3.5 L Monocytes % 4.3 Eosinophils % 0.6 Basophils % 0.2 Nucleated Red Blood Cells % 0.0 Immature Granulocytes # 0.800 H Neutrophils # 15.6 H Lymphocytes # 0.6 L Monocytes # 0.8 Eosinophils # 0.1 Basophils # 0.0 Nucleated Red Blood Cells # 0.0 Sodium Level 142 Potassium Level 4.8 Chloride Level 107 Carbon Dioxide Level 26 Anion Gap 9 # Blood Urea Nitrogen 92 H Creatinine 0.86 Est Glomerular Filtrat Rate mL/min Glucose Level 138 Calcium Level 9.7 Phosphorus Level 4.0 Magnesium Level 2.5 Creatine Kinase < 20 L Creatine Kinase Index Creatinine Kinase MB (Mass) 0.48 Troponin I 0.026 Exam/Review of Systems Vital Signs Vitals Vital Signs Date Temp Pulse Resp B/P (MAP) Pulse Ox O2 O2 Flow FiO2 Time Delivery Rate 08/02/18 113 22 100/55 85 Mechanical 09:00 (70) Ventilator 08/02/18 97.0 08:00 08/02/18 100 08:00 Intake and Output 08/01/18 08/01/18 08/02/18 1515:00 23:00 07:00 IntakeIntake Total 1083.593 ml 937.593 ml 497.133 ml OutputOutput Total 585 ml 425 ml 360 ml BalanceBalance 498.593 ml 512.593 ml 137.133 ml Medications Medications Current Medications Lorazepam (Ativan) 1 mg Q2H PRN GTB ANXIETY; Start 07/26/18 at 12:04 Morphine Sulfate/ Sodium Chloride 100 ml @ 1 mls/hr TITRATE IV Last administered on 08/02/18at 08:15; Admin Dose 3 MLS/HR; Start 08/02/18 at 07:30 Atropine Sulfate (Atropine 1% Oph) 2 drop Q2H PRN SL comfort/secretions; Start 08/02/18 at 07:30 CAMERON MARC Aug 02, 2018 09:27
--- NOTE | 2018-08-02 09:50 | DES ---
Date/Time of Note Date/Time of Note DATE: 08/02/18 TIME: 09:50 Discharge/ Summary Admission/Discharge Info Admit Date/Time Jul 26, 2018 at 01:38 Date/Time at 9:37 AM August 02, 2018: PE: Gen: Patient not awake or alert HEENT: Pupils nonreactive Res: No breath sounds able to be auscultated CV: Heart sounds unable to be heard, not present GI: No bowel sounds heard Ext/M/S: No palpable pulses bilaterally Neuro: Again patient nonresponsive Final Diagnosis # Hypercapnic and hypoxic respiratory failure - Intubated 07/25. # Positive troponin: Likely demand ischemia from above # History of hypertension # Hyperthyroidism # Dyslipidemia # COPD Preliminary Cause of 1. Acute Res Distress: Minutes 2. Respiratory failure: Secondary to ARDS - days Admit History 87-year-old female with a history of COPD, hypertension, dyslipidemia, hyperthyroidism who was brought to the ER for shortness of breath. Patient is currently intubated and as such information is gathered from chart review and from the ER physician. Reportedly, daughter stated that the patient has been coughing up for the past 3 days. Prior to coming to the ER patient started experiencing shortness of breath and was breathing fast. In the ER she was hypoxic with O2 sat as low as 85 on 15 L nonrebreather mask. PH 7.31, PCO2 51, PO2 almost 200, bicarb 25. Currently patient is intubated. Chest x-ray shows possible bilateral pneumonia. First troponin also found to be elevated at 0.67. EKG without ST elevation or depression. Hospital Course Patient was admitted, seen by multiple specialists during this hospital stay including cardiology, pulmonary, and palliative care teams. Patient was found with hypercapnic and hypoxic respiratory failure. This was secondary to patient's COPD history as well as sounds positive pneumonia found. Patient was placed on broad-spectrum antibiotics. Unfortunately her respiratory function did not improve despite aggressive treatment. Patient was also found with elevated troponins in the setting of sepsis and hypotension. Patient was medically treated for this issue and seen by cardiology team for that. Regarding her respiratory status, again patient had to be intubated, also required pressor support. Unfortunately patient's respiratory status did not improve. After speaking with the sr solutions consultant teams and primary team, the decision was made by family for patient to be terminally extubated undergo comfort measures. Patient was terminally extubated on the morning of August 02, 2018. Patient later on the morning of August 02, 2018 at 9:37 AM. Pending Labs/Cultures Laboratory Tests Test 08/01/18 12:04 08/02/18 04:30 Vancomycin Level Trough 17.3 ug/ml (10.0-20.0) White Blood Count 17.9 10^3/ul (4.8-10.8) Red Blood Count 2.27 10^6/ul (4.20-5.40) Hemoglobin 7.3 g/dl (12.0-16.0) Hematocrit 21.8 % (37.0-47.0) Mean Corpuscular Volume 96.0 fl (82.0-101.0) Mean Corpuscular Hemoglobin 32.2 pg (29.0-33.0) Mean Corpuscular 33.5 g/dl (32.0-37.0) Hemoglobin Concent Red Cell Distribution Width 15.3 % (11.5-14.5) Platelet Count 278 10^3/UL (140-415) Mean Platelet Volume 10.7 fl (7.4-10.4) Immature Granulocytes % 4.500 % (0.001-0.429) Neutrophils % 86.9 % (39.0-77.0) Lymphocytes % 3.5 % (15.0-51.0) Monocytes % 4.3 % (0.0-11.0) Eosinophils % 0.6 % (0.0-7.0) Basophils % 0.2 % (0.0-2.0) Nucleated Red Blood Cells % 0.0 /100WBC (0.0-0.0) Immature Granulocytes # 0.800 10^3/ul (0.0-0.031) Neutrophils # 15.6 10^3/ul (1.6-7.5) Lymphocytes # 0.6 10^3/ul (0.8-2.9) Monocytes # 0.8 10^3/ul (0.3-0.9) Eosinophils # 0.1 10^3/ul (0.0-0.5) Basophils # 0.0 10^3/ul (0.0-0.1) Nucleated Red Blood Cells # 0.0 10^3/ul (0.0-0.0) Sodium Level 142 mmol/L (135-144) Potassium Level 4.8 mmol/L (3.5-5.1) Chloride Level 107 mmol/L (97-110) Carbon Dioxide Level 26 mmol/L (21-31) Anion Gap 9 (5-13) Blood Urea Nitrogen 92 mg/dl (7-20) Creatinine 0.86 mg/dl (0.44-1.00) Est Glomerular Filtrat mL/min (>60) Rate mL/min Glucose Level 138 mg/dl (70-220) Calcium Level 9.7 mg/dl (8.4-10.2) Phosphorus Level 4.0 mg/dl (2.5-4.9) Magnesium Level 2.5 mg/dl (1.7-2.5) Creatine Kinase < 20 IU/L (23-200) Creatine Kinase Index Creatinine Kinase MB (Mass) 0.48 ng/ml (0.0-2.4) Troponin I 0.026 ng/ml (0.000-0.120) CAMERON MARC Aug 02, 2018 09:50
== END 2018-08-02 09:37 | disposition expired | DRG 870 ==
LOC: E/R 22:54 → ICU 07-26 01:38
PROVIDERS: ADMIT Internal Medicine; ATTEND Hospitalist
PROC: 02HV33Z Insertion of Infusion Device into Superior Vena Cava, Percutaneous Approach (ICD-10-PCS; principal; 2018-07-25)
PROC: 5A1955Z Respiratory Ventilation, Greater than 96 Consecutive Hours (ICD-10-PCS; 2018-07-25)
PROC: 0BH18EZ Insertion of Endotracheal Airway into Trachea, Via Natural or Artificial Opening Endoscopic (ICD-10-PCS; 2018-07-25)
PROC: 0BH17EZ Insertion of Endotracheal Airway into Trachea, Via Natural or Artificial Opening (ICD-10-PCS; 2018-07-27)
DX: A41.9 Sepsis, unspecified organism (principal); J96.01 Acute respiratory failure with hypoxia; J18.9 Pneumonia, unspecified organism; I21.A1 Myocardial infarction type 2; R65.21 Severe sepsis with septic shock; J96.02 Acute respiratory failure with hypercapnia; J44.0 Chronic obstructive pulmonary disease with (acute) lower respiratory infection; J44.1 Chronic obstructive pulmonary disease with (acute) exacerbation; J95.812 Postprocedural air leak; I45.4 Nonspecific intraventricular block; I10 Essential (primary) hypertension; E05.90 Thyrotoxicosis, unspecified without thyrotoxic crisis or storm; D64.9 Anemia, unspecified; E78.5 Hyperlipidemia, unspecified; Y84.8 Other medical procedures as the cause of abnormal reaction of the patient, or of later complication, without mention of misadventure at the time of the procedure; Y92.238 Other place in hospital as the place of occurrence of the external cause; Z51.5 Encounter for palliative care
CPT/HCPCS: 31500; 36415; 36600; 71045; 80048; 80053; 80061; 80202; 81001; 82550; 82553; 82803; 83605; 83690; 83735; 84100; 84145; 84439; 84443; 84484; 85025; 85610; 85651; 85730; 86140; 87040; 87070; 87081; 87086; 87400; 93005; 93306; 94002; 94003; 94640; 94664; 94770; 96365; 96375; J0456; J0692; J1650; J1940; J2250; J2270; J3370; J3475; J7030; J7042; J7050